=== PATIENT | male | born 1955 | race Caucasian/White ===

== ENCOUNTER 2019-04-05 11:49 | Outpatient (CLI) | payer OTHER, SELFPAY ==
--- NOTE | ~2019-04-05 | XR_ITS ---
EXAMINATION: XR chest 2V 04/05/2019 12:17 INDICATION: Cough. PROCEDURE: 2 view chest COMPARISON: 01/20/2019 FINDINGS: The lungs are clear. The cardiomediastinal silhouette is within normal limits. There are no pleural effusions. There is no pneumothorax suspected. IMPRESSION: 1: NO ACUTE CARDIOPULMONARY DISEASE. Reviewed, dictated and finalized at location A. RATING STATION MECHANIC
== END 2019-04-05 11:50 | disposition home or self-care (01) ==
PROVIDERS: PCP Internal Medicine; Visit Provider Internal Medicine
DX: R05 Cough (principal)
CPT/HCPCS: 71046

== ENCOUNTER 2020-03-05 08:58 | Outpatient (CLI) | payer MEDICARE, SELFPAY ==
--- NOTE | 2020-03-05 11:45 | NEURO_ITS ---
Impression: # Complains of inability to use left hand. # Slower distal nerve conduction velocities with subtle evolving Carpal Tunnel Syndrome on right side. # Asymmetrical median F-wave prolongation. # Needle/EMG exam revealed no Fibs or denervation potentials. # Throughout the exam patient left arm kept turning in with no myotonia on needle/ EMG exam. # Clinical correlation recommended; question of dystonia. Nerve Conduction Studies Anti Sensory Summary Table Stim Site NR Peak (ms) P-T Amp (?V) Site1 Site2 Delta-P (ms) Dist (cm) Bharat (m/s) Left Median Anti Sensory (2-3nd Digit) Wrist 3.4 39.8 Wrist 2-3nd Digit 3.4 14.0 41 Wrist 3.7 41.2 Wrist 2-3nd Digit 3.4 14.0 41 Right Median Anti Sensory (2-3nd Digit) Wrist 3.3 30.9 Wrist 2-3nd Digit 3.3 14.0 42 Wrist 3.3 23.8 Wrist 2-3nd Digit 3.3 14.0 42 Left Radial Anti Sensory (Base 1st Digit) Wrist 2.6 7.2 Wrist Base 1st Digit 2.6 0.0 Right Radial Anti Sensory (Base 1st Digit) Wrist 2.8 13.7 Wrist Base 1st Digit 2.8 0.0 Left Ulnar Anti Sensory (5th Digit) Wrist 3.0 34.6 Wrist 5th Digit 3.0 14.0 47 Right Ulnar Anti Sensory (5th Digit) Wrist 3.2 55.0 Wrist 5th Digit 3.2 14.0 44 Motor Summary Table Stim Site NR Onset (ms) O-P Amp (mV) Site1 Site2 Delta-0 (ms) Dist (cm) Bharat (m/s) Left Median Motor (Abd Poll Brev) Wrist 3.8 5.4 Elbow Wrist 5.4 30.0 56 Elbow 9.2 1.7 Right Median Motor (Abd Poll Brev) Wrist 4.1 2.0 Elbow Wrist 5.7 31.0 54 Elbow 9.8 1.8 Left Ulnar Motor (Abd Dig Minimi) Wrist 3.4 2.8 A Elbow Wrist 5.5 30.0 55 A Elbow 8.9 3.7 Right Ulnar Motor (Abd Dig Minimi) Wrist 3.0 4.7 A Elbow Wrist 5.7 31.0 54 A Elbow 8.7 3.7 F Wave Studies NR F-Lat (ms) L-R F-Lat (ms) Left Median (Mrkrs) (Abd Poll Brev) 33.62 3.83 Right Median (Mrkrs) (Abd Poll Brev) 29.79 3.83 Left Ulnar (Mrkrs) (Abd Dig Min) 27.55 1.05 Right Ulnar (Mrkrs) (Abd Dig Min) 26.50 1.05 EMG Side Muscle Nerve Root Ins Act Fibs Amp Dur Recrt Comment Right 1stDorInt Ulnar C8-T1 Nml Nml Nml Nml Nml Right Ext Indicis Radial (Post Int) C7-8 Nml Nml Nml Nml Nml Right Ext Digitorum Radial (Post Int) C7-8 Nml Nml Nml Nml Nml Right BrachioRad Radial C5-6 Nml Nml Nml Nml Nml Right PronatorTeres Median C6-7 Nml Nml Nml Nml Nml Right Abd Poll Brev Median C8-T1 Nml Nml Nml Nml Nml Left 1stDorInt Ulnar C8-T1 Nml Nml Nml Nml Nml Left Ext Indicis Radial (Post Int) C7-8 Nml Nml Nml Nml Nml Left Ext Digitorum Radial (Post Int) C7-8 Nml Nml Nml Nml Nml Left BrachioRad Radial C5-6 Nml Nml Nml Nml Nml Left PronatorTeres Median C6-7 Nml Nml Nml Nml Nml Left Abd Poll Brev Median C8-T1 Nml Nml Nml Nml Nml Right ABD Dig Min Ulnar C8-T1 Nml Nml Nml Nml Nml Right Biceps Musculocut C5-6 Nml Nml Nml Nml Nml Right Triceps Radial C6-7-8 Nml Nml Nml Nml Nml Right Deltoid Axillary C5-6 Nml Nml Nml Nml Nml Left ABD Dig Min Ulnar C8-T1 Nml Nml Nml Nml Nml Left Biceps Musculocut C5-6 Nml Nml Nml Nml Nml Left Triceps Radial C6-7-8 Nml Nml Nml Nml Nml Left Deltoid Axillary C5-6 Nml Nml Nml Nml Nml MTDD
== END 2020-03-05 08:59 | disposition home or self-care (01) ==
PROVIDERS: PCP Internal Medicine; Visit Provider Psychiatry & Neurology Neurology
DX: R20.2 Paresthesia of skin (principal)
CPT/HCPCS: 95886; 95911

== ENCOUNTER 2020-04-18 09:35 | Outpatient (CLI) | payer MEDICARE, SELFPAY ==
--- NOTE | ~2020-04-18 | US_ITS ---
EXAMINATION: US carotid duplex BI DATE: 04/18/2020 10:30 INDICATION: Cerebral infarct in left occipital lobe. TECHNIQUE: Grayscale, color Doppler, and pulsed Doppler images of the cervical carotid arteries were obtained. The degree of vessel stenosis is placed in one of the following categories: normal, <50%, 5 0-69%, >=70% but less than near-occlusion, near-occlusion, or total occlusion. Note that percent sten osis relative to normal distal artery lumen diameter is indirectly measured from velocity measurement s as described by Yon, et al. Radiology 2003; 229:340-346. COMPARISON: None. FINDINGS: RIGHT: The right common carotid artery (CCA) peak systolic velocity (PSV) is 99 cm/s. The right internal car otid artery (ICA) PSV is 57 cm/s. The right ICA end-diastolic velocity (EDV) is 22 cm/s. The right IC A/CCA PSV ratio is 0.6. Grayscale and color Doppler images yield an estimate of <50% diameter reducti on from plaque in the ICA. There is antegrade flow in the right vertebral artery. LEFT: The left CCA PSV is 103 cm/s. The left ICA PSV is 76 cm/s. The left ICA EDV is 30 cm/s. The left ICA/ CCA PSV ratio is 0.7. Grayscale and color Doppler images yield an estimate of <50% diameter reduction from plaque in the ICA. There is antegrade flow in the left vertebral artery. IMPRESSION: 1. <50% stenosis in the right internal carotid artery. 2. <50% stenosis in the left internal carotid artery. Reviewed, dictated and finalized at location A. CTOR SHIP
== END 2020-04-18 09:36 | disposition home or self-care (01) ==
PROVIDERS: PCP Internal Medicine Infectious Disease; Visit Provider Psychiatry & Neurology Neurology
DX: I63.9 Cerebral infarction, unspecified (principal); I65.23 Occlusion and stenosis of bilateral carotid arteries
CPT/HCPCS: 93880

== ENCOUNTER 2020-05-06 09:27 | Outpatient (CLI) | payer MEDICARE, SELFPAY ==
--- NOTE | ~2020-05-06 | XR_ITS ---
XR hand LT min 3V DATE: 05/06/2020 09:53 INDICATION: Weakness of left arm. Lack of control of left hand. TECHNIQUE: 3 views of left hand COMPARISON: None FINDINGS: No fracture, dislocation, periosteal reaction or bone destruction is detected. No erosive c hange or chondrocalcinosis. IMPRESSION: No significant abnormality Reviewed, dictated and finalized at location A. DROGENATION SUPERVISOR IMPRESSION: No significant abnormality
== END 2020-05-06 09:28 | disposition home or self-care (01) ==
PROVIDERS: PCP Internal Medicine Infectious Disease; Visit Provider Internal Medicine Cardiovascular Disease
DX: R53.1 Weakness (principal)
CPT/HCPCS: 73130

== ENCOUNTER 2021-05-28 00:15 | Day surgery (SDC) | payer MEDICARE, SELFPAY ==
[2021-04-27 12:02] VITALS: BMI 26.1
--- NOTE | 2021-05-14 14:21 | PC.NURSE ---
Spoke with , Zeynep. States that no changes have been made to medication or medical history since last PAT phone call on 04/27/21. Rescheduled times and prep instructions reviewed with patient's since he has a history of memory loss.
--- NOTE | 2021-05-27 18:51 | PM.HPGS ---
History of Present Illness History of Present Illness Consent: Risks, benefits, and alternatives have been discussed and questions answered. Patient agrees to proceed with procedure. Chief complaint: hx of colon polyps, dysphagia Narrative: Soy Wiley is a 65 year old male with dysphagia and history of polyps. he states that he has had difficulty swallowing since he had spinal cord surgery on his cervical spine. Was an anterior approach to his neck. Food and pills seem to get caught in his throat. A little over 5 years ago he had 8 or 9 polyps removed, many which were adenomatous. Review of Systems Review of Systems: All systems reviewed & are unremarkable except as noted in HPI and below PMFSH Past Medical History Medical History CVA (cerebral vascular accident) Hyperlipidemia Memory impairment Surgical History Surgical History History of eye surgery Social History Social History Smoking packs per day: 1 Smoking cigarettes per day: 20.0 Years smoked: 45 Smoking pack-years: 45.00 Smoking status: Current every day smoker Tobacco type: cigarettes Alcohol intake: never Substance use: never Substance use type: does not use Living arrangements: with family Spiritual care concerns: No Meds Home Medications and Allergies Home Medications Medication Instructions Recorded Confirmed Type hydrocodone 10 mg-acetaminophen 1 tablet PO Q8H PRN #70 tablet 02/19/21 04/27/21 Rx 325 mg tablet aspirin 81 mg PO DAILY 04/27/21 04/27/21 History atorvastatin 40 mg PO DAILY 04/27/21 04/27/21 History levetiracetam 500 mg PO BID 04/27/21 04/27/21 History Allergies Allergy/AdvReac Type Severity Reaction Status Date / Time menthol [From Icy Hot] Allergy Mild Rash Verified 05/28/21 09:27 methyl salicylate Allergy Mild Rash Verified 05/28/21 09:27 [From All Web Leads Hot] Exam Const: General: alert Orientation/consciousness: patient oriented x3 Resp: Auscultation: clear to auscultation bilaterally Cardio: Rhythm: regular rhythm GI: GI Palp: Yes Soft to palpation and No Tenderness to palpation present (GI) Neuro: General: patient oriented x3 Assessment and Plan Assessment and plan (1) Dysphagia: Code(s): R13.10 - Dysphagia, unspecified Status: Acute Assessment and Plan: EGD with possible biopsy or dilatation or cautery. (2) Colon cancer screening: Code(s): Z12.11 - Encounter for screening for malignant neoplasm of colon Status: Acute Assessment and Plan: Colonoscopy with possible biopsy or polypectomy or cautery or injection of substances.
[2021-05-28 09:28] VITALS: BP 137/92; PULSE 114; RESP 19; TEMP 36.8; O2SAT 96
--- NOTE | 2021-05-28 09:42 | WPDANESEPPF ---
Anes - Initial Pre Proc Eval Procedure: Operation Date: 05/28/21 10:45 Proposed Procedures p Esophagogastroduodenoscopy & Screening Colonoscopy - Toby Bean MD Date/Time: 05/28/21 09:42 Surgeon: Toby Bean MD Pre Op Diagnosis: hx of colon polyps, dysphagia Patient Data Age: 65 Gender: M Height: 1.85 m Weight: 89.4 kg Last Vital Signs Temp 36.8 C 05/28/21 09:28 Pulse 114 H 05/28/21 09:28 Resp 19 05/28/21 09:28 BP 137/92 H 05/28/21 09:28 Pulse Ox 96 05/28/21 09:28 Allergies Allergy/AdvReac Type Severity Reaction Status Date / Time menthol [From MyColorScreen] Allergy Mild Rash Verified 05/28/21 09:27 methyl salicylate Allergy Mild Rash Verified 05/28/21 09:27 [From MyColorScreen] Home Medications Medication Instructions Recorded Confirmed Type hydrocodone 10 mg-acetaminophen 1 tablet PO Q8H PRN #70 tablet 02/19/21 04/27/21 Rx 325 mg tablet aspirin 81 mg PO DAILY 04/27/21 04/27/21 History atorvastatin 40 mg PO DAILY 04/27/21 04/27/21 History levetiracetam 500 mg PO BID 04/27/21 04/27/21 History Patient hx anesthesia problems: none Family hx anesthesia problems: none Results Review: All pre-operative results and documents have been reviewed as part of the pre-operative evaluation. [facility] Past Medical History Medical History CVA (cerebral vascular accident) Hyperlipidemia Memory impairment Surgical History Surgical History History of eye surgery Social History Social History Smoking packs per day: 1 Smoking cigarettes per day: 20.0 Years smoked: 45 Smoking pack-years: 45.00 Smoking status: Current every day smoker Tobacco type: cigarettes Alcohol intake: never Substance use: never Substance use type: does not use Living arrangements: with family Spiritual care concerns: No Anes - Eval Final PreProcedure Day of Procedure 05/28/21 09:42 Patient weight: overweight Heart: regular rate and rhythm Lungs: decreased breath sounds Airway: Mallampati scale class II Neurological: other (alert) Last oral intake: >/= 8 hours ASA classification: IV Emergent: no Anesthetic plan: proceed Anesthesia type and monitoring: general GIVS and standard monitoring Results Review: All pre-operative results and documents have been reviewed as part of the pre-operative evaluation. Informed Consent: The patient's anesthetic plan and its attendant risks and benefits were discussed with the patient/family/POA. Questions were solicited and answers provided to the satisfaction of the patient/family/POA.
[2021-05-28] MEDS: LACTATED RINGERS 1,000 ML 150 ML IV CONT (09:43)
[2021-05-28] MEDS: BENZOCAINE (*SP) 60 ML SPRAY CAN (HURRICAINE) 1 SPRAY MUCOUS MEM (10:46)
[2021-05-28] MEDS: SIMETHICONE ORAL SUSPENSION 20 MG/0.3 ML 30 ML BOTTLE 0.6 ML IRRIGATION (11:04)
[2021-05-28 11:17] VITALS: BP 114/77; PULSE 81; RESP 16; O2SAT 100
[2021-05-28 11:27] VITALS: BP 131/87; PULSE 79; RESP 19; O2SAT 100
[2021-05-28 11:37] VITALS: BP 133/85; PULSE 78; RESP 15; O2SAT 100
--- NOTE | 2021-05-28 13:35 | SUR.OPER ---
EGD START: 1052; END: 1055. COLONOSCOPY START: 1101; END: 1114.
== END 2021-05-28 11:50 | disposition home or self-care (01) ==
PROVIDERS: PCP Internal Medicine Infectious Disease; Visit Provider Internal Medicine Gastroenterology
PROC: 0DJ08ZZ Inspection of Upper Intestinal Tract, Via Natural or Artificial Opening Endoscopic (ICD-10-PCS; CPT 43235; principal; 2021-05-28 10:45)
DX: Z12.11 Encounter for screening for malignant neoplasm of colon (principal); K63.5 Polyp of colon; D12.4 Benign neoplasm of descending colon; K25.3 Acute gastric ulcer without hemorrhage or perforation; E78.5 Hyperlipidemia, unspecified; F17.210 Nicotine dependence, cigarettes, uncomplicated; Z86.73 Personal history of transient ischemic attack (TIA), and cerebral infarction without residual deficits; Z79.82 Long term (current) use of aspirin
CPT/HCPCS: 45385; 45380; 43239; 88305; J2704; J7120

== ENCOUNTER 2023-07-09 19:39 | Emergency (ER) | payer MEDICARE, SELFPAY ==
[2023-07-09] VITALS (13 sets, daily range): BP systolic 115–152; BP diastolic 67–87; PULSE 74–96; RESP 15–22; TEMP 36.4–36.7; O2SAT 96–100
--- NOTE | ~2023-07-09 | XR_ITS ---
EXAMINATION: XR chest 2V Exam Date/Time: 07/09/2023 20:37 CDT HISTORY: weakness Comparison: 04/05/2020, report only. RESULT: Lines, tubes, and devices: None. Lungs and pleura: Patchy peripheral and bibasilar groundglass opacities. Mild diffuse reticular opac ities. Cardiomediastinal silhouette: Stable. Other: No acute osseous or upper abdominal finding. IMPRESSION: Pulmonary opacities may represent edema or infection. Reviewed, dictated and finalized at location K.
--- NOTE | 2023-07-09 19:59 | ECG_ITS ---
Measurements Intervals [place] Rate: 76 P: 21 RI: 241 QRS: -26 QRSD: 166 T: 117 QT: 458 Avg RR: 785 QTc: 488 QTcB: 516 QTcF: 496 Interpretive Statements SINUS RHYTHM POSSIBLE LEFT ATRIAL ENLARGEMENT [-0.1mV P WAVE IN V1/V2] OLD INFERIOR INFARCT BASELINE ARTIFACT WHICH LIMITS INTERPRETATION SEE SCANNED COPY FOR SIGNATURE MTDD
[2023-07-09 20:12] LABS: Basophils Percent Auto 0.6 % (0.2-1.2); Eosinophils Absolute Auto 0.3 K/mm3 (0-0.3); Eosinophils Percent Auto 4.9 % (0-4.4); Hematocrit 38.2 % (42.0-52.0); Hemoglobin 11.8 g/dL (14.0-18.0); Immature Granulocyte Absolute 0.02 K/mm3 (0.00-0.031); Immature Granulocyte Percent A 0.3 % (0-0.5); Immature Platelet Fraction Pct 5.1 % (0.9-11.2); Lymphocytes Absolute Auto 2.14 K/mm3 (0.9-3.2); Lymphocytes Percent Auto 30.8 % (18.3-44.2); Mean Corpuscular HGB Conc 30.9 g/dl (32-36); Mean Corpuscular Hemoglobin 23.4 pg (26-34); Mean Corpuscular Volume 75.6 fl (80-100); Mean Platelet Volume 11.3 fl (7.4-10.4); Monocytes Absolute Auto 0.6 K/mm3 (0.1-0.6); Monocytes Percent Auto 8.9 % (2.6-8.5); Neutrophils Absolute Auto 3.8 K/mm3 (1.3-6.7); Neutrophils Percent Auto 54.5 % (45.5-73.1); Platelet Count Result 90 k/mm3 (150-375); Red Blood Count 5.05 M/mm3 (4.6-6.20); Red Cell Distribution Width 14.1 % (11.5-14.5)
[2023-07-09 20:18] LABS: Alanine Aminotransferase 15 U/L (6-50); Albumin Level 4.4 g/dL (3.5-5.1); Alkaline Phosphatase 52 U/L (38-126); Anion Gap 8 mmol/L (4-12); Aspartate Amino Transferase 26 U/L (17-59); Bilirubin,Total 0.4 mg/dL (0.2-1.3); Blood Urea Nitrogen 34 mg/dL (9-20); Calcium 9.2 mg/dL (8.4-10.2); Carbon Dioxide 27 mmol/L (22-30); Chloride 106 mmol/L (98-107); Estimated CRCL calculation 51 ml/min; Estimated Glomerular Filt Rate 50; Glucose 89 mg/dL (65-110); Potassium 4.5 mmol/L (3.4-5.0); Sodium 141 mmol/L (137-145)
--- NOTE | 2023-07-09 20:24 | ED.GENADULT ---
HPI - General Adult General Chief complaint: Weakness Stated complaint: confusion, weakness Time Seen by Provider: 07/09/23 20:00 History of Present Illness HPI narrative: The patient is a 68-year-old male who presents ER with reports of weakness. Patient has history of dementia diagnosed for your neuro. He apparently has had increased difficulty with memory over the last week. No fevers chills or sweats. No vomiting. No known sick contacts. Patient reports she has been with more fatigued but cannot elaborate. has difficulty giving any additional information other than that he had been calling his son on the phone and hanging up acting more confused than typical. Related Data Home Medications Medication Instructions Recorded Confirmed aspirin 81 mg capsule 81 mg PO DAILY 04/27/21 04/27/21 atorvastatin 40 mg tablet 40 mg PO DAILY 04/27/21 04/27/21 levetiracetam 500 mg tablet 500 mg PO BID 04/27/21 04/27/21 baclofen 10 mg tablet mg 07/09/23 calcitriol 0.25 mcg capsule mcg 07/09/23 ergocalciferol (vitamin D2) 1,250 07/09/23 mcg (50,000 unit) capsule losartan 50 mg tablet mg 07/09/23 mirtazapine 15 mg tablet mg 07/09/23 Allergies Allergy/AdvReac Type Severity Reaction Status Date / Time menthol [From Icy Hot] Allergy Mild Rash Verified 07/09/23 20:04 methyl salicylate Allergy Mild Rash Verified 07/09/23 20:04 [From 23press] Review of Systems Review of Systems: ROS unobtainable: Yes unobtainable due to medical condition [facility] Past Medical History Medical History CVA (cerebral vascular accident) Hyperlipidemia Memory impairment Surgical History Surgical History History of eye surgery Social History Social History Smoking packs per day: 1 Smoking cigarettes per day: 20.0 Years smoked: 45 Smoking pack-years: 45.00 Smoking status: Current every day smoker Tobacco type: cigarettes Alcohol intake: never Substance use: never Substance use type: does not use Living arrangements: with family Spiritual care concerns: No Exam Narrative: GENERAL: Well-appearing, well-nourished, and in no acute distress. HEAD: Normocephalic, atraumatic. ENT: Mucous membranes moist. NECK: Supple. CHEST: Clear to auscultation. No respiratory distress. HEART: Regular rate and rhythm. Normal peripheral pulses. ABDOMEN: Soft, nontender, nondistended. EXTREMITIES: Normal range of motion. No edema. SKIN: Warm, dry, no rash. NEURO: Alert and oriented x3. PSYCH: Normal mood and affect. Course Course Emergency Course: X-ray concerning for developing pneumonia. Will start on azithromycin. Vital Signs Vital signs: Vital Signs Temperature 97.6 F 07/09/23 19:43 Pulse Rate 96 07/09/23 19:43 Respiratory Rate 16 07/09/23 19:43 Blood Pressure 148/84 H 07/09/23 19:43 Pulse Oximetry 97 07/09/23 19:43 Oxygen Delivery Room Air 07/09/23 19:43 Temperature 98.1 F 07/09/23 20:04 Pulse Rate 77 07/09/23 20:31 Respiratory Rate 18 07/09/23 20:31 Blood Pressure 115/68 07/09/23 20:31 Pulse Oximetry 96 07/09/23 20:31 Oxygen Delivery Room Air 07/09/23 20:00 Medical Decision Making Vital Signs Vital Signs: Vital Signs Temperature 97.6 F 07/09/23 19:43 Pulse Rate 96 07/09/23 19:43 Respiratory Rate 16 07/09/23 19:43 Blood Pressure 148/84 H 07/09/23 19:43 Pulse Oximetry 97 07/09/23 19:43 Oxygen Delivery Room Air 07/09/23 19:43 Temperature 98.1 F 07/09/23 20:04 Pulse Rate 77 07/09/23 20:31 Respiratory Rate 18 07/09/23 20:31 Blood Pressure 115/68 07/09/23 20:31 Pulse Oximetry 96 07/09/23 20:31 Oxygen Delivery Room Air 07/09/23 20:00 Lab Data 07/09/23 20:04 07/09/23 20:04 Labs: Lab Results 07/09/23
[2023-07-09 20:55] LABS: Influenza A QL RT-PCR Negative (Negative); Influenza B QL RT-PCR Negative (Negative); RSV RNA, RT-PCR Negative (Negative); SARS-CoV-2 RNA PCR Negative (Negative)
[2023-07-09 22:26] LABS: Appearance Urine Clear (Clear); Bacteria Urine None Seen /hpf; Bilirubin Urine Negative (Negative); Blood Urine Negative (Negative); Color Urine Yellow (Yellow); Glucose Urine UA Negative (Negative); Ketones Urine Negative (Negative); Leukocyte Esterase Ur Negative LEU/UL (Negative); Nitrate Urine Negative (Negative); Non Pathogenic Casts 0-2; Protein Urine 2+ mg/dL (Negative); RBC Urine 0-2 /hpf (0-2); Specific Grav Ur 1.024 (1.001-1.035); Squamous Epithelial Cell Urine None Seen /hpf (Few); WBC Urine 0-5 /hpf (0-3); pH Urine 6.5 (5.0-9.0)
[2023-07-09 22:34] LABS: Add Urine Microscopic? YES
== END 2023-07-09 23:00 | disposition home or self-care (01) ==
PROVIDERS: Emergency Medicine; Emergency Provider Emergency Medicine; PCP Internal Medicine Infectious Disease
DX: J18.9 Pneumonia, unspecified organism (principal); Z20.822 Contact with and (suspected) exposure to COVID-19; F03.90 Unspecified dementia, unspecified severity, without behavioral disturbance, psychotic disturbance, mood disturbance, and anxiety; E78.5 Hyperlipidemia, unspecified; F17.210 Nicotine dependence, cigarettes, uncomplicated; Z86.73 Personal history of transient ischemic attack (TIA), and cerebral infarction without residual deficits; Z79.82 Long term (current) use of aspirin; R94.31 Abnormal electrocardiogram [ECG] [EKG]
CPT/HCPCS: 36415; 71046; 80053; 81001; 85025; 85055; 87637; 93005; 99284

== ENCOUNTER 2023-08-02 11:21 | Outpatient (CLI) | payer MEDICARE, SELFPAY ==
--- NOTE | ~2023-08-02 | XR_ITS ---
EXAM: XR lumbar spine min 4V DATE: 08/02/2023 11:45 HISTORY: Facet arthritis of lumbar region . COMPARISON: None available. FINDINGS: 5 nonrib-bearing lumbar-type vertebral bodies. Pedicles intact. Severe scoliosis. Partiall y visualized right hip arthroplasty hardware. Atherosclerotic aortic calcification without evident an eurysm. Exaggerated lumbar lordosis. Severe degenerative disc disease at all lumbar levels. Severe fa cet arthropathy in the mid and lower lumbar spine. Limited range of motion in flexion without obvious listhesis. No range of motion in extension which limits evaluation. IMPRESSION: Severe lumbar scoliosis, degenerative disc disease at all lumbar levels, and mid and lower lumbar fac et arthropathy. Limited range of motion limits evaluation for dynamic listhesis in this examination. Reviewed, dictated and finalized at location K. IMPRESSION: Severe lumbar scoliosis, degenerative disc disease at all lumbar levels, and mi d and lower lumbar facet arthropathy. Limited range of motion limits evaluation for dynamic listhesis in this examina tion.
== END 2023-08-02 11:22 ==
PROVIDERS: PCP Nurse Practitioner Family; Visit Provider Nurse Practitioner Family
DX: M47.816 Spondylosis without myelopathy or radiculopathy, lumbar region (principal)
CPT/HCPCS: 72110

== ENCOUNTER 2023-10-05 10:04 | Outpatient (CLI) | payer MEDICARE, SELFPAY ==
--- NOTE | ~2023-10-05 | MR_ITS ---
MRI of the lumbar spine Clinical History: Radiculopathy Technique: Axial T2-weighted images, and sagittal T1-weighted, T2-weighted, and STIR images were acqu ired. Findings: There is reversal of normal lumbar lordosis. No acute fracture or subluxation evident. Ther e are type I Modic changes about the L5-S1 disc space in particular. No suspicious bone marrow signal abnormality seen. At L1-L2, there is severe degenerative disc narrowing. There is minimal disc bulge with mild to moder ate facet arthropathy. No central canal stenosis. There is moderate left neural foraminal narrowing. Right neural foramen preserved. At L2-L3, there is severe degenerative disc narrowing. There is minimal disc bulge with moderate to a dvanced facet arthropathy. No central canal stenosis. There is moderate to severe left neural foramin al narrowing, and mild to moderate right neural foraminal narrowing. At L3-L4, there is severe degenerative disc narrowing. There is mild disc bulge with advanced facet a rthropathy. No central canal stenosis. There is severe bilateral neural foraminal contrast. At L4-L5, there is moderate to advanced degenerative disc narrowing. There is mild disc bulge with mo derate to advanced facet arthropathy. There is right lateral recess stenosis. No alin central canal stenosis. There is severe right neural foraminal compromise, and moderate to advanced left neural for aminal compromise. At L5-S1, there is disc bulge and moderate facet arthropathy. No central canal stenosis. There is sev ere bilateral neural foraminal, otherwise. Paravertebral soft tissues are unremarkable. Impression: Severe degenerative spondylosis, as detailed above, with multilevel significant neural foraminal narr owing. Reviewed, dictated and finalized at location M. Impression: Severe degenerative spondylosis, as detailed above, with multilevel significant neural foraminal narrowing.
== END 2023-10-05 10:05 ==
LOC: MICIMG 10:05
PROVIDERS: PCP Nurse Practitioner Family; Visit Provider Nurse Practitioner Family
DX: M47.26 Other spondylosis with radiculopathy, lumbar region (principal)
CPT/HCPCS: 72148

== ENCOUNTER 2024-07-04 15:18 | Emergency (ER) | payer MEDICARE, SELFPAY ==
[2024-07-04 15:20] VITALS: BP 149/96; PULSE 86; RESP 20; TEMP 36.7; O2SAT 98
--- OUTSIDE RECORDS SUMMARY | 2024-07-04 16:30 | XMS_ITS | Encounter Summary ---
Author Organization [facility] Address [address] [place] [address] Phone Care Team Providers Care Nut Packer Name Role Phone Mina House MD Primary Care Provider [phone] Gianluca Zavala MD Primary Care Provider Nico Garcia MD PhD Unavailable Subha Echavarria MANAGER RECOVERY Unavailable [phone] Encounter Details Date Type Department Care Team (Late st Contact Info) Description 09/28/2017 Telephone [facility] Neurosurgery [address] 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 Gender Identity Not on file Sexual Orientation Not on file documented as of this encounter Plan of Treatment Not on file documented as of this encounter Visit Diagnoses Not on filedocumented in this encounter Care Teams Nut Packer Relationship Specialty Start Date End Date Mina House MD PCP - General 07/19/17 03/29/21 Gianluca Zavala MD [address] [facility] [address] [place] [address] PCP - General Internal Medicine 03/30/21 Nico Garcia MD PhD [address] [facility] [place] [address] Referring Physician Neurology 05/06/22 Subha Echavarria NP [address] [place] [address] Nurse Practitioner Family Medicine 09/01/23 documented as of this encounter
--- OUTSIDE RECORDS SUMMARY | 2024-07-04 16:30 | XMS_ITS | Encounter Summary ---
Author Organization [facility] Address [address] [place] [address] Phone Care Team Providers Care Center Machine Set Up Operator Name Role Phone Mina House MD Primary Care Provider [phone] Gianluca Zavala MD Primary Care Provider Nico Garcia MD PhD Unavailable Subha Echavarria SHIPPING HAND Unavailable [phone] Encounter Details Date Type Department Care Team (Late st Contact Info) Description 09/29/2017 Telephone [facility] Neurosurgery [address] [facility] Advanced Medicine 6th [place] [address] [place] [address] Jose Villagomez MD [address] [address] Social History Tobacco Use Types Packs/Day Years Used Date Smoking Tobacco: Every Day Alcohol Use Standard Drinks/Week Comments No 0 (1 standard drink = 0.6 oz pur e alcohol) Sex and Gender Information Value Date Recorded Sex Assigned at Not on file 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 Gender Identity Not on file Sexual Orientation Not on file documented as of this encounter Plan of Treatment Not on file documented as of this encounter Visit Diagnoses Not on filedocumented in this encounter Care Teams Center Machine Set Up Operator Relationship Specialty Start Date End Date Mina House MD PCP - General 07/19/17 03/29/21 Gianluca Zavala MD [address] [facility] [address] [place] [address] PCP - General Internal Medicine 03/30/21 Nico Garcia MD PhD [address] [facility] [address] [place] [address] Referring Physician Neurology 05/06/22 Subha Echavarria NP [address] [place] [address] Nurse Practitioner Family Medicine 09/01/23 documented as of this encounter
--- OUTSIDE RECORDS SUMMARY | 2024-07-04 16:30 | XMS_ITS | Patient Health Record ---
Author Organization [facility] Office Address [address] [place] [address] Care Team Providers Care Hand Assembler For Puller Over Name Role Phone Oren Garza Unavailable [phone] REASON FOR REFERRAL No Information MEDICATIONS Medication SIG (Take, Route, Frequency, Duration) Notes Start Date End Date Status Losartan Potassium 50 MG TAKE 1 TABLET B Y MOUTH ONCE DAILY FOR BLOOD PRESSURE for 124 Active Calcitriol 0.25 MCG TAKE 1 CAPSULE BY [facility] EVERY DAY for 124 Active PROBLEMS Problem Type ICD Code Onset Dates Problem Status W/U Status Risk SNOMED Code Notes Problem Hyperlipidemia, unspecified (E78.5) Active confirmed Hyperlipidemia (17257297) Problem Major depressive disorder, single episode, unspecified (F32.9) Active confirmed Major depressio n, single episode (16423530) Problem Anxiety disorder, unspecified (F41.9) Active confirmed Anxiety disorde r (254561174) Problem Essential (primary) hypertension (I10) Active confirmed Essential hypertension (95750493) Problem Essential (primary) hypertension (I10) Active confirmed Essential hypertension (84451173) Problem Heart failure, unspecified (I50.9) Active confirmed Heart failure (18415670) Problem Heart failure, unspecified (I50.9) Active confirmed Heart failure (32719025) Problem Renal osteodystrophy (N25.0) Active confirmed Renal osteodystrophy (04315003) Problem Chronic fatigue, unspecified (R53.82) Active confirmed Chronic fatigue syndrome (disorder) (71410883) Problem Edema, unspecified (R60.9) Active confirmed Edema (11443381) Problem Proteinuria, unspecified (R80.9) Active confirmed Proteinuria (14662769) Problem Chronic kidney disease, stage 3 unspecified (N18.30) Active confirmed Chronic kidney disease stage 3 (disorder) (886591617) Problem Chronic kidney disease, stage 3 unspecified (N18.30) Active confirmed Chronic kidney disease stage 3 (disorder) (933225748) Encounters Encounter Location Date Provider Diagnosis [facility] [address] [address] 09/30/2023 Oren Garza Chronic kidney disea se, stage 3 unspecified N18.30 ; Edema, unspecified R60.9 ; Essential (primary) hypertension I10 ; Heart failure, unspecified I50.9 ; Hyperlipidemia, unspecified E78.5 ; Proteinuria, unspecified R80.9 and Renal osteodystrophy N25.0 [facility] [address] [address] 12/02/2023 Oren Garza ASSESSMENTS Encounter Date Diagnosis Assessment Notes Treatment Notes Treatment Clinical Notes Section Notes 09/30/2023 Chronic kidney disease, stage 3 unspecified (ICD-10 - N18.30) 09/30/2023 Edema, unspecified (ICD-10 - R60.9) 09/30/2023 Essential (primary) hypertension (ICD-10 - I10) 09/30/2023 Heart failure, unspecified (ICD-10 - I50.9) 09/30/2023 Hyperlipidemia, unspecified (ICD-10 - E78.5) 09/30/2023 Proteinuria, unspecified (ICD-10 - R80.9) 09/30/2023 Renal osteodystrophy (ICD-10 - N25.0) PLAN OF TREATMENT No Information
--- OUTSIDE RECORDS SUMMARY | 2024-07-04 16:31 | XMS_ITS ---
Author Organization [facility] Address [address] [address] [place] [address] Care Team Providers Care Retail Product Advisor Name Role Phone Greg Oren Unavailable [phone] MEDICATIONS Medication SIG (Take, Route, Frequency, Duration) Notes Start Date End Date Status Calcitriol 0.25 MCG 1 capsule Orally Onc e a day for 90 day(s) 07/01/2023 03/26/2024 Active Losartan Potassium 50 MG 1 tablet Orally Once a day for 90 07/01/2023 Active Ergocalciferol 1.25 MG (33536 UT) 1 capsule Orally Once a week for 90 day(s) 07/01/2023 03/26/2024 Active Encounters Encounter Location Date Provider Diagnosis [place] [facility] [address] [facility] [address] [place] [address] 07/01/2023 rOen Garza PLAN OF TREATMENT Medication Medication Name Sig Start Date Stop Date Notes Calcitriol 0.25 MCG 1 capsule Orally Onc e a day for 90 day(s) 07/01/2023 03/26/2024 Losartan Potassium 50 MG 1 tablet Orally Once a day for 90 07/01/2023 Ergocalciferol 1.25 MG (5000 0 UT) 1 capsule Orally Once a week for 90 day(s) 07/01/2023 03/26/2024 Progress Notes * Soy WILEYDOB: [birth year] (67 yo M)Acc No.[id number]:07/01/2023 Patient: Soy WILEY :1955 Age:67 Y Sex:Male Address:[address] [place] [address] * Refills Start Losartan Potassium Tablet, 50 MG, Orally, 90 Tablet, 1 tablet, Once a day, 90, Refills=2 Start Ergocalciferol Capsule, 1.25 MG (88782 UT), Orally, 13, 1 capsule, Once a week, 90 day(s), Refills=2 Start Calcitriol Capsule, 0.25 MCG, Orally, 90 Capsule, 1 capsule, Once a day, 90 day(s), Refills=2 * true * Date:
--- OUTSIDE RECORDS SUMMARY | 2024-07-04 16:31 | XMS_ITS ---
Author Organization [facility] Address [address] [place] [address] Care Team Providers Care Thinner Sprayer Name Role Phone Oren Garza Unavailable [phone] Encounters Encounter Location Date Provider Diagnosis [place] [facility] [address] [facility] [address] [place] [address] 12/02/2023 Oren Garza PLAN OF TREATMENT No Information Progress Notes * Soy WILEYDOB: [birth year] (68 yo M)Acc No.[id number]:12/02/2023 Progress Notes Patient: Soy WILEY Provider: MD MATT, Kely.Alexey.C.P, F.A.S.N. :1955 Age:68 Y Sex:Male Date:12/02/2023 Address:[address] [place] [address] Subjective: * Chief Complaints: * * Medical History: Objective: Assessment: Plan: * Treatment: * Billing Information: * Visit Code: * Procedure Codes: * Sign off status: Pending * Provider: MD MATT, F.Alexey.C.P, F.A.S.N. Date: 12/02/2023
--- OUTSIDE RECORDS SUMMARY | 2024-07-04 16:32 | XMS_ITS | CONTINUITY OF CARE DOCUMENT ---
Author Name chase stone Address Unknown Organization [facility] Address [address] [address] [facility] [address] [place] [address] Phone [phone] Care Team Providers Care Contact Lens Assistant Name Role Phone Greg ANN, Yvette Unavailable [phone] NANCI BROOKE MD Unavailable NANCI BROOKE MD Unavailable [phone] PROBLEMS Condition Status Date Provider Notes TOBACCO ABUSE active Yvette Garza MD Hypercholesterolemia, mixed active Kenneid Gr uenenfelder HTN SYSTOLIC active Yvette Garza MD CHEST PAIN NL CATH 12/06. Nor mal echo and stress test 04/2020 active Dionisio Velez Chronic idiopathic thrombocytopenic purpura active Paulo Esteban MD Venous insufficiency, chronic active Paulo Esteban MD Iron deficiency completed - Yvette Garza MD DYSPNEA ON EXERTION- normal PFTs active Yvette Garza MD Weakness of left arm active Dionisio Velez Preoperative cardiovascular examination for cervical spine and hip surgery active Yvette Garza MD AAA completed - Yvette Garza MD Sleep apnea- testing with Dr Sd House last yr, declined treatment. Will f/u with [facility] for treatment. completed - Yvette Garza MD Dementia- early onset active Yvette Eli DIZZINESS AND PALPITATIONS- HOLTER SR HR 60-144 active ? Isidoro Curry RN HTN CONTROLLED-08/15 CAROTID NEG completed - To meghan Garza MD ENCOUNTERS Date Type Provider Location Encounter Diag nosis - In-person encounter Office Visit Yvette Garza MD [facility] CHEST PAIN NL CATH 12/06. Normal echo and stress test 04/2020Weakness of left arm - In-person encounter Office Visit Yvette Garza MD [facility] - In-person encounter Office Visit Yvette Garza MD [facility] [place] [facility] HTN SYSTOLICHTN CONTROLLED-08/15 CAROTID NEGSleep apnea- testing with Dr. House last yr, declined treatment. Will f/u with Harsh for treatment.AAAPreoperativ e cardiovascular examination for cervical spine and hip surgery - In-person encounter Office Visit Yvette Garza MD [facility] CHEST PAIN NL CATH 12/06. Normal echo and stress test 04/2020Iron deficiencyDYSPNEA ON EXERTION- normal PFTsDementia- early onset - In-person encounter Office Visit Yvette Garza MD [facility] DYSPNEA ON EXERTION- normal PFTs - In-person encounter Office Visit Paulo Esteban MD [facility] Chronic idiopathic thrombocytopenic purpuraVenous insufficiency, chronic - In-person encounter Office Visit Paulo Esteban MD [facility] - In-person encounter Office Visit Paulo Esteban MD [facility] Chronic idiopathic thrombocytopenic purpura - In-person encounter Office Visit Yvette Garza MD [facility] - In-person encounter Office Visit Yvette Garza MD [facility] - In-person encounter Office Visit Yvette Garza MD [facility] [place] [facility] DIZZINESS AND PALPITATIONS-08/15 HOLTER SR HR 60-144 VITAL SIGNS Date Observation Value Provider Body Mass Index (Ratio) 27.57 kg/m2 Keith Garza MD blood pressure, cuff size large Ke rri Rivasrolandoraulrussellsouthwestern vermont medical centermagalys blood pressure, diastolic 70 mm[Hg] Ke rri Michelle blood pressure, systolic 130 mm[Hg] Sarah ashley Rivasjosselyntung oxygen saturation, oximetry 96 % Kennedi Fortuneraulrusselltung respiratory rate E&M 16 /min Kennedi Cuadra kevinenerussellsouthwestern vermont medical centermagalys pulse rate 91 /min Kennedi Grullon [facility] weight E&M 209 [lb_av] Kennedi Joee [facility] height E&M 73 [in_i] Kennedi Rivasjosselynchamp [facility] Body Mass Index (Ratio) 27.31 kg/m2 Keith Garza MD oxygen saturation, oximetry 96 % Gina Gomez respiratory rate E&M 18 /min Gina Gomez pulse rate 97 /min Gina Gomez blood pressure, diastolic 69 mm[Hg] Rh onfredis Gomez blood pressure, systolic 110 mm[Hg] Rho ndmark Gomez weight E&M 207 [lb_av] Gina Gomez blood pressure, resting Yes Rhon fredis Gomez blood pressure, cuff size regular lexie Gomez height E&M 73 [in_i] Gina Gomez Body Mass Index (Ratio) 28.23 kg/m2 Keith Garza MD blood pressure, diastolic 80 mm[Hg] Da luis Hraris blood pressure, systolic 118 mm[Hg] Dac ia Kimberly oxygen saturation, oximetry 98 % Ida Kimberly respiratory rate E&M 16 /min Ida V oss pulse rate 86 /min Ida Kimberly weight E&M 214 [lb_av] Ida Kimberly height E&M 73 [in_i] Ida Kimberly Body Mass Index (Ratio) 28.76 kg/m2 Keith Garza MD blood pressure, cuff size regular Ke rri Tongnekarley blood pressure, diastolic 74 mm[Hg] Ke rri Gruenenfelder blood pressure, systolic 116 mm[Hg] Sarah ri Michelle oxygen saturation, oximetry 98 % Kennedi Gralkaer respiratory rate E&M 18 /min Kennedi G kevinenenfelder pulse rate 94 /min Kennedi Gropal lder weight E&M 218 [lb_av] Kennedi Grjosselyne lder height E&M 73 [in_i] Kennedi Joee lder Body Mass Index (Ratio) 28.47 kg/m2 Keith Garza MD blood pressure, diastolic 85 mm[Hg] Luke Mauriceniki Walters blood pressure, systolic 124 mm[Hg] Lisa Naveen Walters oxygen saturation, oximetry 98 % Ridge Walters respiratory rate E&M 18 /min TariZulma Valadezenson pulse rate 125 /min Ridge Jeff brittanyon weight E&M 215.8 [lb_av] Ridge Rory on height E&M 73 [in_i] Ridge Jeff nson blood pressure, diastolic 88 mm[Hg] Ke rri Rivasuenekarley blood pressure, systolic 142 mm[Hg] Sarah ri Michelle pulse rate 97 /min Kennedi Grjosselyne lder oxygen saturation, oximetry 98 % Kennedi Jimynfjayshreeer respiratory rate E&M 16 /min Kennedi G kevinenenfjayshreeer Body Mass Index (Ratio) 31.00 kg/m2 Hester i Michelle weight E&M 235 [lb_av] Kennedi Diaze lder blood pressure, diastolic 90 mm[Hg] Ke rri Joeelder blood pressure, systolic 138 mm[Hg] Sarah Fortunenerussellelder pulse rate 105 /min Kennedi Diaze lder oxygen saturation, oximetry 98 % Kennedi Diazelder respiratory rate E&M 16 /min Kennedi brownenerussellelder Body Mass Index (Ratio) 31.66 kg/m2 Hester dale Zaidier weight E&M 240 [lb_av] Kennedi Grullon lder blood pressure, diastolic 88 mm[Hg] Ke rri Joeelder blood pressure, systolic 160 mm[Hg] Sarah Zaidier pulse rate 76 /min Kennedi Diaze lder oxygen saturation, oximetry 97 % Kennedi Zaidier respiratory rate E&M 16 /min Kennedi garlandelder Body Mass Index (Ratio) 32.58 kg/m2 Hester dale Zaidier weight E&M 247 [lb_av] Kennedi Grullon lder blood pressure, diastolic 86 mm[Hg] Luke Walters blood pressure, systolic 129 mm[Hg] Lisa Walters pulse rate 102 /min Ridge serrano oxygen saturation, oximetry 96 % Ridge Walters respiratory rate E&M 18 /min Michael Walters weight E&M 229.6 [lb_av] Ridge valdezon blood pressure, diastolic 74 mm[Hg] Liam Curry RN blood pressure, systolic 125 mm[Hg] Isidoro Curry RN pulse rate 98 /min Isidoro Curry RN oxygen saturation, oximetry 98 % Isidoro Baldwins RN respiratory rate E&M 16 /min Isidoro navamaría LOPEZ Body Mass Index (Ratio) 30.45 kg/m2 Isidoro Curry JESSICA weight E&M 230 [lb_av] Isidoro Curry RN Body Mass Index (Ratio) 30.59 kg/m2 Kerline Mendez weight E&M 231 [lb_av] Vanna Mendez height E&M 73 [in_i] Vanna Mendez pulse rate 81 /min Vanna Mendez oxygen saturation, oximetry 94 % Vanna Mendez respiratory rate E&M 17 /min Vanna Mendez blood pressure, diastolic 82 mm[Hg] Junior Mendez blood pressure, systolic 122 mm[Hg] Erick Mendez ALLERGIES No Known Drug Allergies RESULTS Date Observation Value Provider Reference Range Interpretation Location red blood cell distribution width, size density 38.6 fL [facility] immature granulocytes, percentage of total cells, blood 0.5 % [facility] nucleated red blood cells as percent of blood leukocytes 0.0 % [facility] red blood cell (erythrocyte) count, per high power field 0.0 10*3/UL [facility] - eosinophils as percent of blood leukocytes 4.7 % [facility] neutrophils as percent of blood leukocytes 52.4 % [facility] Absolute Neutrophils 3.2 CELLS/UL [facility] 1.5 - 7.8 basophils as percent of blood leukocytes 0.6 % [facility] Absolute Basophils 0.0 CELLS/UL [facility] 0.0 - 0.2 monocytes as percent of blood leukocytes 9.4 % [facility] Absolute Monocytes 0.6 CELLS/UL [facility] 0.2 - 1.0 lymphocytes as percent of blood leukocytes 32.4 % [facility] Lymphocytes 2.0 CELLS/UL [facility] 0.9 - 3.9 mean platelet volume 0.0 (?) [facility] - platelet count 86.0 THOUSAND/U L [facility] 100.0 - 400.0 Low mean corpuscular hemoglobin concentration, RBC 30.7 G/DL [facility] 31.0 - 38.0 Low mean corpuscular hemoglobin, RBC 22.4 pg [facility] 25.0 - 35.0 Low mean corpuscular volume, RBC 72.9 fL [facility] 75.0 - 100.0 Low hematocrit, blood 44.9 % [facility] 35.0 - 55.0 hemoglobin, blood 13.8 g/dL [facility] 11.5 - 16.5 erythrocyte count, whole blood 6.2 MILLION/UL [facility] 3.5 - 5.5 High vitamin b12, serum 409.2 pg/mL [facility] 211.0 - 946.0 thyroid stimulating hormone, serum 0.584 ??IU/ML [facility] 0.270 - 4.200 ferritin, serum 87.7 ng/mL [facility] 30.0 - 400.0 iron binding capacity, total 286.0 (?) [facility] - iron, serum 82.0 ug/dL [facility] 31.0 - 144.0 iron binding capacity, unsaturated 204.0 ??G/DL [facility] 112.0 - 347.0 folate, serum 9.6 NG/MLM [facility] 5.6 - 45.8 platelet count 88.0 THOUSAND/U L [facility] 100.0 - 400.0 Low reticulocyte count, absolute 0.067 10*6 CELLS/UL [facility] - reticulocyte count, blood, uncorrected 1.16 % [facility] 0.50 - 2.00 HISTORY OF MEDICATION USE Medication Status Instructions Dates Provider Indications Com jimenez MELOXICAM 15 MG ORAL TABLET active one tab daily for a month Dionisio Velez LISINOPRIL 10 MG ORAL TABLET active 1 tab daily Gina Gomez GABAPENTIN 100 MG ORAL CAPSULE active 1 cap 2 a day Gina Gomez VITAMIN B12 1000 MCG ORAL TABLET EXTENDED RELEASE completed take one daily - Gina Gomez ASPIR-81 81 MG ORAL TABLET DELAYED RELEASE active take one daily Ida Kimberly KEPPRA TABLET completed take one twice daily - Gina oGmez ZOLOFT 25 MG ORAL TABLET completed take once daily - Gina Gomez ATORVASTATIN CALCIUM 10 MG ORAL TABLET active take once dialy Ida Kimberly FERROUS SULFATE 324 (65 FE) MG ORAL TABLET DELAYED RELEASE completed One tablet, twice daily. - Ida Kimberly FEOSOL 325 (65 FE) MG ORAL TABLET completed TID - Ridge Walters BENADRYL CAPSULE completed take 1 - 2 pills at bedtime - Ridge Walters LISINOPRIL-HYDRO CHLOROTHIAZIDE 10-12.5 MG ORAL TABLET completed take one pill aday - Ida Kimberly OMEPRAZOLE 40 MG ORAL CAPSULE DELAYED RELEASE completed take one pill a day - Kennedi Martinez PERIACTIN 4MG completed take one pill at bedtime - Kennedi Martinez ASPIRIN 325 MG ORAL TABLET completed ONE TAB. DAILY - Kennedi Martinez LEXAPRO 10 MG ORAL TABLET completed one per day - Kennedi Martinez ASPIRIN 81 MG ORAL TABLET completed ONE TAB. DAILY - Ridge Walters LISINOPRIL 5 MG ORAL TABLET completed ONE TAB. DAILY - Yvette CORONADOODONE-ACET AMINOPHEN 10-325 MG ORAL TABLET active 1 tab every8 hours as needed for pain Aneatris Brown ACETAMINOPHEN 500 MG ORAL TABLET completed take prn for pain - Ridge Walters SOCIAL HISTORY Date Observation Value Provider social history E&M Marital Statu s: P gibran currently smokes every day. 1PPD x 30 years A lcohol Use - no D rug Use - no Smoking History: P gibran currently smokes every day. P gibran has been counseled to quit. Dionisio Velez social history reviewed E&M revi ewed - no changes required Dionisio Velez seatbelt usage 100 % Dionisio Velez exercise type physical therapy Dionisio mcdowell physical exercise, f requency, days per week 1 /wk Dionisio Velez caffeine use, averag e drinks per day 2-3 Dionisio Velez passive cigarette sm diana exposure no Dionisio Velez smoking/tobacco cess ation, patient education and counseling yes Dionisio Velez smoking, date started 1973 Dionisio Velez smoking history, tot al pack/year 43 Dionisio Velez smoking history, tot al pack/day 1 Dionisio Velez cigarette use yes Dionisio Velez smoking status Current every day smoker Reji Velez social history E&M Marital Statu s: P gibran currently smokes every day. 1PPD x 30 years A lcohol Use - no D rug Use - no Smoking History: P gibran currently smokes every day. Dionisio Gill social history reviewed E&M revi ewed - no changes required Dionisio Gill smoking status Current every day smoker R oli Gomez social history reviewed E&M revi ewed - no changes required Yvette Garza MD social history E&M Marital Statu s: P gibran currently smokes every day. 1PPD x 30 years A lcohol Use - no D rug Use - no Smoking History: P gibran currently smokes every day. P gibran has been counseled to quit. Yvette Gazra MD seatbelt usage 100 % Ida Harris exercise type physical therapy [facility] physical exercise, f requency, days per week 1 /wk [facility] alcohol use no [facility] caffeine use, averag e drinks per day 2-3 [facility] drug use no [facility] smoking/tobacco cess ation, patient education and counseling yes [facility] passive cigarette sm diana exposure no [facility] smoking, date started 1973 [facility] smoking history, tot al pack/year 43 [facility] smoking history, tot al pack/day 1 [facility] cigarette use yes [facility] smoking status Current every day smoker D [facility] smoking, date started 1973 Dariana Mike smoking history, tot al pack/year 43 Dariana Mike smoking history, tot al pack/day 1 Dariana Mike smoking status Current every day smoker S yariel Mike cigarette use yes Dariana dowell seatbelt usage 100 % Dariana villarreal exercise type physical therapy Dariana barcenas physical exercise, f requency, days per week 1 /wk Dariana Mckeon alcohol use no Dariana garcia caffeine use, averag e drinks per day 2-3 Dariana Mckeon drug use no Dariana garcia passive cigarette sm diana exposure no Dariana Mike smoking history, tot al pack/day 1 Carola Landeros cigarette use yes Carola Landeros smoking status Current every day smoker M madhav Landeros exercise type physical therapy Carola chau physical exercise, f requency, days per week 1 /wk Carola Landeros caffeine use, averag e drinks per day 2-3 Carola Landeros seatbelt usage 100 % Dariana villarreal alcohol use no Dariana Galaviz r caffeine use, averag e drinks per day yes Dariana Mckeon drug use no Dariana Galaviz r smoking/tobacco cess ation, patient education and counseling yes Dariana Mckeon passive cigarette sm diana exposure no Dariana Mckeon smoking, date started 1973 Dariana Mckeon smoking history, tot al pack/year 43 Dariana Mckeon smoking history, tot al pack/day 0.5 Dariana Mckeon smoking status Current every day smoker S yariel Mckeon cigarette use yes Dariana Brito seatbelt usage 100 % Dariana villarreal alcohol use no Dariana garcia caffeine use, averag e drinks per day yes Dariana Mckeon drug use no Dariana Galaviz r smoking/tobacco cess ation, patient education and counseling yes Dariana Mckeon passive cigarette sm diana exposure no Dariana Mckeon smoking, date started 1973 Dariana Mckeon smoking history, tot al pack/year 43 Dariana Mckeon smoking history, tot al pack/day 0.5 Dariana Mckeon smoking status Current every day smoker S yariel Mckeon cigarette use yes Dariana Brito social history E&M Marital Statu s: Enoch leary currently smokes every day. 1PPD x 30 years A lcohol Use - no D rug Use - no Smoking History: Enoch leary currently smokes every day. Enoch leary has been counseled to quit. Yvette Garza MD social history reviewed E&M i zhane - no changes required Yvette Garza MD alcohol use no Kennedi Grullon lder caffeine use, averag e drinks per day yes Kennedi Martinez drug use no Kennedi Grullon lder smoking/tobacco cess ation, patient education and counseling yes Kennedi Michelle passive cigarette sm diana exposure no Kennedi Fortuneraulrusselljayshreemagalys smoking, date started 1973 Kennedi Diazjayshreemagalys smoking history, tot al pack/year 43 Kennedi Hathawaygabinokarley smoking history, tot al pack/day 0.5 Kennedi Fortuneraulrusselljayshreemagalys cigarette use yes Kennedi ruby smoking status Current every day smoker Syl dillard Michelle number of grandchildren Yvette Garza MD T jenny Garza MD alcohol use no Ridge Aguilar brittanyon caffeine use, averag e drinks per day yes Ridge Walters drug use no Ridge Aguilar brittanyon smoking/tobacco cess ation, patient education and counseling yes Ridge Walters passive cigarette sm diana exposure no Ridge Walters smoking, date started 1973 Iza Walters smoking history, tot al pack/year 43 Ridge Walters smoking history, tot al pack/day 0.5 Ridge Walters cigarette use yes Ridge valdezon smoking status Current every day smoker Piotr fryShannonthor Walters smoking history, tot al pack/year 43 Kennedi Michelle social history reviewed E&M revi ewed - no changes required Paulo Esteban MD alcohol use no Kennedi Yadi lomaxer caffeine use, averag e drinks per day yes Kennedi Michelle drug use no Kennedi Hathawayjosselynchamp monieer smoking/tobacco cess ation, patient education and counseling yes Kennedi Michelle passive cigarette sm diana exposure no Kennedi Michelle smoking, date started 1974 Kennedi Michelle smoking history, tot al pack/year 42 Kennedi Diazjayshreemagalys smoking history, tot al pack/day 0.5 Kennedi Diazjayshreemagalys cigarette use yes Kennedi ruby smoking status Current every day smoker Syl Hathawaygabinorusselljayshreemagalys social history reviewed E&M revi ewed - no changes required Paulo Esteban MD smoking/tobacco cess ation, patient education and counseling yes Paulo Esteban MD alcohol use no Kennedi Tongraulrussellchamp edenilson smoking status Current every day smoker K eundale Michelle number of grandchildren Paulo Dodd RN smoking history, tot al pack/year 42 Iesha Dodd RN social history reviewed E&M revi ewed - no changes required Paulo Esteban MD drug use no Paulo Eli alcohol use no Paulo Eli social history E&M Marital Statu s: P gibran currently smokes every day. 1PPD x 30 years A lcohol Use - no D rug Use - no Smoking History: P gibran currently smokes every day. P gibran has been counseled to quit. Paulo Esteban MD smoking/tobacco cess ation, patient education and counseling yes Paulo Esteban MD smoking status Current every day smoker K nishant Michelle social history reviewed E&M revi ewed - no changes required Yvette Garza MD caffeine use, averag e drinks per day yes Ridge Walters drug use no Ridge serrano passive cigarette sm diana exposure no Ridge Walters smoking/tobacco cess ation, patient education and counseling yes Ridge Walters smoking, date started 1974 Iza Walters smoking history, tot al pack/year 40 Ridge Walters smoking history, tot al pack/day 0.5 Ridge Walters cigarette use yes Ridge koehler smoking status current every day smoker M Emery Walters drug use no Isidoro Curry RN passive cigarette sm diana exposure no Isidoro Curry RN social history E&M Marital Status: Marrie d Isidoro Curry RN caffeine use, averag e drinks per day yes Isidoro Curry RN social history reviewed E&M reviewed Isidoro Curry RN smoking history, tot al pack/year 40 Isidoro Curry RN smoking history, tot al pack/year 40 Isidoro Curry RN social history E&M Marital Status: Lisarichamp kiesha Garza MD social history reviewed E&M reviewed Yvette Garza MD smoking/tobacco cess ation, patient education and counseling yes Yvette Garza MD smoking history, tot al pack/day 1 Vanna Mendez smoking history, tot al pack/year 40 Vanna Mendez smoking, date started 1974 Vanna Mendez cigarette use yes Vanna Mendez smoking status current every day smoker Lino benitez Mendez MENTAL STATUS Date Observation Value Provider assessment of judgme nt and insight E&M Alert and oriented to time, place and person. Mood and affect are normal. Isidoro Curry RN assessment of judgme nt and insight E&M Alert and oriented to time, place and person. Mood and affect are normal. Yvette Garza MD FAMILY HISTORY Family Member Condition Maternal Grandfather Family History of O ther Cancer Mother Family History of Ki dney/Renal Disease Father Family History of [facility]/CVA INSURANCE PROVIDERS Payer name Policy type / Coverage type [employer] party ID UHC MEDICARE COMPLETE HMO Other [id number] ADVANCE DIRECTIVES Name Date DISCUSSED - NO DECISION MADE TREATMENT PLAN Date Name Performer Cardiology Follow up Dionisio Velez Cardiology Follow up Dionisio Velez Cardiology Follow up Dionisio Velez Cardiology Follow up Dionisio Kohlert Cardiology Follow up Dionisio Jose Ft Cardiology Follow up Dionisio Kohlert Cardiology Yvette Garza MD Cardiology Yvette Garza MD Cardiology Yvette Garza MD Cardiology Yvette Garza MD Cardiology Yvette Garza MD Cardiology follow up Bipinidoreen cabrera MD Cardiology follow up Bipiniya Roldan cabrera MD Cardiology follow up Bipiniya Sing h Cardiology follow up Toniya Sing h Cardiology follow up Bipinidoreen cabrera MD Cardiology Follow up Bipinidoreen cabrera MD Cardiology Follow up Yvette cabrera MD Cardiology Yvette Garza MD Cardiology Yvette Garza MD Cardiology:Has bloodwork schedul ed. Yvette Garza MD Cardiology:Will check iron studi es. Yvette Garza MD Cardiology Yvette Garza MD Hem/Onc Follow up :P atient had absent stainable iron stores. Start oral ferrous supplementation. Recheck iron stores on follow up. Orders: I NEIL AND TOTAL IRON BINDING CAPACITY (7573) F ERRITIN (457) Paulo Esteban MD Hem/Onc Follow up :I will refer to Dr. Salazar for evaluation. He has a chronic nonhealing venous ulcer of right LE. Paulo Esteban MD Hem/Onc Follow up :T he patient's work up has been unrevealing. His bone marrow biopsy showed no evidence of MDS. He has no medications that can cause thrombocytopenia. His liver and spleen ultrasound are pending to rule out liver disease/hypersplenism as cause of thrombocytopenia. If this is ruled out, the diagnsois is likely chronic ITP. The patient has no clnical sequelae. I reassured the patient. He will return in 4 months for repeat blood testing. Paulo Esteban MD Hem/Onc Follow up :T he patient has had chronic thrombocytopenia dating back to November 2014. The patient previous work up revealed a mildly elevated Sed rate and LDH. I will obtain a CT scan of abd/pelvis to evaluate his abdominal pain. I will repeat platelet count on citrate to rule out pseudothrombocytopenia. Gven the elevated LDH, I will obtain a bone marrow biopsy to rule out an underlying MDS. He will return in 4 weeks for follow up. Orders: S NOMED-CT: [id number] Current Medications Documented ([id number]) P latelet Count on Citrated Bld (909264) L DH (847996) C T Abd and pelvis with contrast (CPT-10271) C BC (INCLUDES DIFF/PLT) (6999) 9 9214 MOD Complex (CPT-43210) Paulo Esteban MD Hem/Onc New Patient :The patient fits criteria for low dose CT screening for lung cancer. Orders: C T Chest - low dose for lung cancer screening (CPT-44210) 9 9244 MOD C omplex (CPT-39324) Paulo Esteban MD Hem/Onc New Patient :The patient has had moderate thrombocytopenia since at least November 2014. He has not started any new medications. His other blood counts remain intact. He has no clinical sequealae due to his thrombocytopenia. I will check nutritional studies, SPEP, LDH, Haptoglobin, Retic, Sed rate, TSH, ANAHI and RF. I agree with obtaining a CT abd/pelvis for futher evaluation of his left sided abdominal pain. He will return in two weeks to review lab testing. Orders: F ERRITIN (457) E LECTROPHORESIS AND IMMUNOFIXATION, SERUM WITH TRACING (88781) T SH (875727) A NA w/Reflex (902297) R heumatoid Arthritis Factor (626060) H aptoglobin (686278) 9 9244 MOD C omplex (CPT-94424) T SH (915060) F olic acid; RBC (63865) I NEIL AND TOTAL IRON BINDING CAPACITY (7573) R ETICULOCYTE COUNT, MANUAL (8699) V ITAMIN B12 (927) L DH (506114) P latelet Count (CPT-37153) S ED RATE BY MODIFIED WESTERGREN (809) Paulo Esteban MD FU: T he following medications were removed from the medication list: Aspirin 81 Mg Tabs (Aspirin) ..... One tab. daily His updated medication list for this problem includes: Aspirin 325 Mg Tabs (Aspirin) ..... One tab. daily Yvette Garza MD : T he following medications were removed from the medication list: Lisinopril 5 Mg Tabs (Lisinopril) ..... One tab. daily His updated medication list for this problem includes: Aspirin 81 Mg Tabs (Aspirin) ..... One tab. daily Prior BP: 122/82 (08/02/2013) Yvette Garza MD : T he following medications were removed from the medication list: Lisinopril 5 Mg Tabs (Lisinopril) ..... One tab. daily His updated medication list for this problem includes: Aspirin 81 Mg Tabs (Aspirin) ..... One tab. daily Prior BP: 122/82 (08/02/2013) Yvette Garza MD : B P today: / Prior BP: 122/82 (08/02/2013) Yvette Garza MD : T he following medications were removed from the medication list: Lisinopril 5 Mg Tabs (Lisinopril) ..... One tab. daily His updated medication list for this problem includes: Aspirin 81 Mg Tabs (Aspirin) ..... One tab. daily BP today: / Prior BP: 122/82 (08/02/2013) C arotid Doppler/Duplex: Normal carotid duplex examination. Vertebral flow is antegrade bilaterally. - GC (08/15/2013) Yvette Garza MD : T he following medications were removed from the medication list: Lisinopril 5 Mg Tabs (Lisinopril) ..... One tab. daily His updated medication list for this problem includes: Aspirin 81 Mg Tabs (Aspirin) ..... One tab. daily BP today: / Prior BP: 122/82 (08/02/2013) Yvette Garza MD new patient visit: H is updated medication list for this problem includes: Lisinopril 5 Mg Tabs (Lisinopril) ..... One tab. daily Aspirin 81 Mg Tabs (Aspirin) ..... One tab. daily BP today: 122/82 Yvette Garza MD new patient visit: H is updated medication list for this problem includes: Lisinopril 5 Mg Tabs (Lisinopril) ..... One tab. daily Aspirin 81 Mg Tabs (Aspirin) ..... One tab. daily BP today: 122/82 Prior BP: / () Yvette Garza MD Date Name X-Ray, Hand Stress Regadenoson Complete Echo STR - Adenosine DLCO - 54363 FRC - 45339 FVC - 33712 Complete Echo IRON AND TOTAL IRON BINDING CAPACITY FERRITIN CBC (INCLUDES DIFF/P LT) FERRITIN IRON AND TOTAL IRON BINDING CAPACITY LDH COMPREHENSIVE METABO LIC PANEL W/EGFR CBC (INCLUDES DIFF/P LT) CBC (INCLUDES DIFF/P LT) CT Abd and pelvis wi th contrast LDH Platelet Count on Ci trated Bld TSH SED RATE BY MODIFIED WESTERGREN Platelet Count CT Chest - low dose for lung cancer screening LDH Haptoglobin Rheumatoid Arthritis Factor ANAHI w/Reflex VITAMIN B12 TSH RETICULOCYTE COUNT, MANUAL IRON AND TOTAL IRON BINDING CAPACITY ELECTROPHORESIS AND IMMUNOFIXATION, SERUM WITH TRACING FERRITIN Folic acid; RBC HISTORY OF PROCEDURES Procedure Date Procedure Name Provider Procedure Notes S tatus EKG Yvette Garza MD completed EKG Yvette Garza MD completed Stress EKG Barrett Qureshi MD complete d Regadenoson, 4 units Yvette Garza MD completed Cardiolite, 2 units Yvette Garza MD completed SPECT Images Terrance Chiang MD compl eted BLOOD COUNT HEMOGLOBIN Yvette Garza MD completed FVC / MVV with bronchodilator - 05023 Yvette Garza MD completed FRC - 69042 Yvette Garza MD complete d SpO2 - 72953 Yvette Garza MD complet ed DLCO - 30903 Yvette Garza MD complet ed EKG Yvette Garza MD completed SNOMED-CT: 596154841 037249 Current Medications Documented Yvette Garza MD completed Ultrasound, abdomen, complete Paulo Esteban MD completed SNOMED-CT: 727298316 426053 Current Medications Documented Paulo Esteban MD completed SNOMED-CT: 622613875 151602 Current Medications Documented Paulo Esteban MD completed SNOMED-CT: 813843685 538860 Current Medications Documented Paulo Esteban MD completed EKG Yvette Garza MD completed EKG Yvette Garza MD completed
--- OUTSIDE RECORDS SUMMARY | 2024-07-04 16:32 | XMS_ITS | Clinical Summary ---
Author Organization [facility] Facility Address [address] [facility] [address] [place] [address] Care Team Providers Care It Instructor Name Role Phone Unavailable Primary Care Provider Unavailabl e Encounters Date Type Department Care Team Description 05/10/2024 Documentation Only [facility]. [address] [facility] [address] [place] [address] Eugenio Garcia MD from Last 3 Months Social History Tobacco Use Types Packs/Day Years Used Date Smoking Tobacco: Never Assessed Sex and Gender Information Value Date Recorded Sex Assigned at Not on file Legal Sex Male 2:03 PM EST Gender Identity Not on file Sexual Orientation Not on file Plan of Treatment Health Maintenance Due Date Last Done Comments Pneumococcal Vaccine: 65+ Years (1 of 2 - PCV) [birth year]06/1961 Colorectal Cancer Screening: Annual FOBT 07/06/2004 Colorectal Cancer Screening: Colonoscopy 07/06/2004 Colorectal Cancer Screening: Sigmoidoscopy 07/06/2004 Influenza Vaccine (#1) 2023 8, 04/21/2017, 04/20/2017, Additional history exists Hepatitis B Vaccine Aged Out No longe r eligible based on patient's age to complete this topic
--- OUTSIDE RECORDS SUMMARY | 2024-07-04 16:32 | XMS_ITS ---
Author Organization [facility] Address [address] [place] [address] Care Team Providers Care Makeup Sales Consultant Name Role Phone Oren Garza Unavailable [phone] Encounters Encounter Location Date Provider Diagnosis [facility] [address] [facility] [address] [place] [address] 09/30/2023 Oren Garza Chronic kidney disea se, stage 3 unspecified N18.30 ; Edema, unspecified R60.9 ; Essential (primary) hypertension I10 ; Heart failure, unspecified I50.9 ; Hyperlipidemia, unspecified E78.5 ; Proteinuria, unspecified R80.9 and Renal osteodystrophy N25.0 ASSESSMENTS Encounter Date Diagnosis Assessment Notes Treatment [...] - N25.0) PLAN OF TREATMENT No Information Progress Notes * Soy WILEYDOB: [birth year] (68 yo M)Acc No.[id number]:09/30/2023 Progress Notes Patient: Soy WILEY Provider: MD MATT, F.A.C.P, F.A.S.N. :1955 Age:68 Y Sex:Male Date:09/30/2023 Address:[address] [place], [place] [id number] Subjective: * Chief Complaints: * * Medical History: Objective: Assessment: * Assessment: 1. Chronic kidney disease, stage 3 unspecified - N18.30 (Primary) 2. Edema, unspecified - R60.9 3. Essential (primary) hypertension - I10 4. Heart failure, unspecified - I50.9 5. Hyperlipidemia, unspecified - E78.5 6. Proteinuria, unspecified - R80.9 7. Renal osteodystrophy - N25.0 Plan: * Treatment: * Billing Information: * Visit Code: 44625 Office Visit, Est Pt., Level 4. * Procedure Codes: * Sign off status: Pending * Provider: MD MATT, F.A.C.P, F.A.S.N. Date: 09/30/2023
--- OUTSIDE RECORDS SUMMARY | 2024-07-04 16:32 | XMS_ITS | Referral Summary ---
Author Organization [facility] Address [address] [place] [address] Care Team Providers Care Clinical Massage Therapist Name Role Phone Gianluca Zavala MD Primary Care Provider Nico Garcia MD PhD Unavailable Subha Echavarria DRAWING KILN SUPERVISOR Unavailable [phone] Allergies Active Allergy Reactions Criticality Noted Date Comments Lidocaine-Menthol Other (See comments) Low 03/17/20 18 Pt stated irritated skin Methyl Salicylate-Menthol Rash High 09/22/2018 Medications diphenhydrAMINE (BENADRYL) 25 mg capsule Take 2 tablet/capsule (50 mg total) by mouth every 6 (six) hours as needed for itching Active cholecalciferol (VITAMIN D-3) 50,000 unit capsule Take 1 capsule (50,000 Units total) by mouth once a week. 12 capsule 9 Active acetaminophen 500 mg capsule Take 2 capsules (1,000 mg total) by mouth every 6 (six) hours. 30 tablet 9 Active atorvastatin (LIPITOR) 40 mg tabletIndicatio ns:hyperlipidem ia Take 1 tablet (40 mg total) by mouth daily 90 tablet 1 9 Active bisacodyl EC (DULCOLAX EC) 5 mg EC tabletIndicatio ns:constipation Take 1 tablet (5 mg total) by mouth daily as needed for constipation Active iron aspgly,ps-C-B12 -FA-Ca-suc 150-60-25-1 po-xt-nww-mg capsule Take by mouth Active aspirin 81 mg enteric coated tablet Active buPROPion SR (ZYBAN) 150 mg 12 hr tabletIndicatio ns:Nicotine dependence with current use Take 1 tablet (150 mg total) by mouth as directed Take one 150 mg tablet every morning for 3 days, then take one 150 mg tablet twice daily for the remainder of the treatment period. 57 tablet 3 2 Active mirtazapine (REMERON) 15 mg tablet Take 1 tablet (15 mg total) by mouth nightly at bedtime 3 Active triamcinolone (KENALOG) 0.1 % cream 4 Active losartan (COZAAR) 50 mg tablet Take 1 tablet (50 mg total) by mouth daily 4 Active ergocalciferol (VITAMIN D) 50,000 unit capsule Take 1 capsule (50,000 Units total) by mouth once a week 4 Active clobetasoL (TEMOVATE) 0.05 % ointment APPLY THIN LAYER TOPICALLY TO THE AFFECTED AREA TWICE DAILY 4 Active clobetasoL (TEMOVATE) 0.05 % cream 4 Active calcitRIOL (ROCALTROL) 0.25 mcg capsule Take 1 capsule (0.25 mcg total) by mouth daily 4 Active ARIPiprazole (ABILIFY) 2 mg tablet Take 1 tablet (2 mg total) by mouth nightly at bedtime 4 Active carbidopa-levod opa (SINEMET) 25-100 mg per tabletIndicatio ns:Parkinsonism Take 1 tablet by mouth 3 (three) times a day 90 tablet 11 4 09/01/19 25 Active levETIRAcetam (KEPPRA) 500 mg tablet TAKE 2 TABLETS BY MOUTH IN THE MORNING AND IN THE EVENING 120 tablet 11 4 Active Active Problems Problem Noted Date Diagnosed Date Edema 09/01/2023 Heart failure 09/01/2023 Proteinuria 09/01/2023 Renal osteodystrophy 09/01/2023 Stage 3 chronic kidney disease 09/01/2023 Hemiparesis affecting left s tracey as late effect of cerebrovascular accident 10/08/2022 Seizure disorder 10/08/2022 Cervical myelopathy 10/08/2022 Arm pain 10/09/2021 Abdominal pain 04/13/2021 Dizziness and giddiness 04/13/2021 Increased frequency of urination 04/13/2021 Nausea and vomiting 04/13/2021 Open wound of lower limb 04/13/2021 Swelling of limb 04/13/2021 Arthritis of left shoulder region 10/10/2020 Monoparesis of upper extremity 04/29/2020 Fatigue 01/05/2019 Hypertensive disorder 01/05/2019 Primary localized osteoarthritis of pelvic regio n and thigh 01/05/2019 Radiotherapy follow-up 01/05/2019 Snoring 01/05/2019 Splenomegaly 01/05/2019 Venous stasis 01/05/2019 Migraine without aura and wi thout status migrainosus, not intractable 09/25/2018 ' 04/07/2018 Partial idiopathic epilepsy with seizures of localized onset, not intractable, without status epilepticus 01/06/2018 Transient ischemic attack (T IA), and cerebral infarction without residual deficits(V12.54) 12/16/2017 ESTELA (obstructive sleep apnea) 12/16/2017 Cognitive decline 12/16/2017 Left arm numbness 12/16/2017 Thrombocytopenia 10/29/2017 Spasticity 09/26/2017 Overview (09/26/2017): Added automatically from request for surgery [id number] 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 Other forms of dyspnea 03/21/2017 Dyslipidemia 02/08/2017 Peripheral venous insufficiency 01/15/2016 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 Tobacco dependence syndrome 08/02/2013 Resolved Problems Problem Noted Date Diagnosed Date Resolved Date 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 03/17/2018 Immunizations Immunization Administration Dates Next Due Influenza, Quadrivalent, Natasha l Culture-based MDCK, Preservative Free, Antibiotic Free, Intramuscular 04/20/2017 Influenza, Quadrivalent, Split, Intramuscular Influenza, Quadrivalent, Spl it, Preservative Free, Intramuscular 03/01/2018 Influenza, Trivalent, High D ose, Split, Preservative Free, Intramuscular 01/25/2014 Influenza, Trivalent, IM (MDV) 02/10/2015 Social History Tobacco Use Types Packs/Day Years Used Date Smoking Tobacco: Every Day Cigarettes 1 45.8 Started: 1985 Smokeless Tobacco: Never Tobacco Cessation:Ready to Q uit: Not Asked; Counseling Given: Not Answered Comments:pt stated never stop smoking. Smoked for 45 yrs Alcohol Use Standard Drinks/Week Comments Yes 1 (1 standard drink = 0.6 oz pur e alcohol) AUDIT-C Answer Date Recorded Q1: How often do you have a drink containing alc ohol? Never 2021 Average Number of Drinks Not on file 022 Frequency of Binge Drinking Not on file 08/2021 Personal Safety Answer Date Recorded Have you ever been in or are you currently in a harmful physical or emotional relationship or is someone making you feel afraid or unsafe? 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 Gender Identity Not on file Sexual Orientation Not on file Last Filed Vital Signs Vital Sign Reading Time Taken Comments Blood Pressure 163/103 09/01/2023 10:42 AM CDT Pulse 98 09/01/2023 10:42 AM CDT Temperature 36.6 C (97.8 F) 06/23/2022 12:47 PM CDT Respiratory Rate 16 06/23/2022 12:47 PM CDT Oxygen Saturation 95% 06/23/2022 12:47 PM CDT Inhaled Oxygen Concentration - - Weight 91.6 kg (202 lb) 09/01/2023 10:42 AM CDT Height 185.4 cm (6' 1 ) 09/01/2023 10:42 AM CDT Body Mass Index 26.65 09/01/2023 10:42 AM CDT Plan of Treatment Not on file Medical Devices Implanted Type Area Training And Development Project Leader Device Identifier Shelf Expiration Date Model / Serial / Lot Rt Total Hip Arthroplasty Right: Hip [employer] Inc Os-201 Hemasorb Spatula Wax 2gm Bone Sterile - [id number] Implanted:Qty: 1 on 05/11/2018 by Jose Villagomez MD at [facility] N/A: Spine Cervical [employer] 10/02/2020 OS-201 / / [id number] [employer] 700-025 I Factor Allograft Putty Syringe Graft 2.5cc Bone - [id number] Implanted:Qty: 1 on 05/11/2018 by Jose Villagomez MD at [facility] N/A: Spine Cervical [employer] [id number] 03/03/2021 700-025 / / [id number] Lifenet [id number] Bio Avs 14x7mm Monolithic Texture Plug Chamfer Leading Edge Spine - [id number] - [id number] Implanted:Qty: 1 on 05/11/2018 by Jose Villagomez MD at [facility] N/A: Spine Cervical [employer] 06/27/2022 [id number] / [id number] / Frieda Spine [id number] Aviator 14x17.4x2.5mm Level 1 Automatic Lock System Spring Load - [id number] Implanted:Qty: 1 on 05/11/2018 by Jose Villagomez MD at [facility] N/A: Spine Cervical [employer]a [employer]ine [id number] / / Frieda Spine [id number] Aviator 4mm 14mm Variable Angle Self Tap Spine Cervical Anterior - [id number] Implanted:Qty: 4 on 05/11/2018 by Jose Villagomez MD at [facility] N/A: Spine Cervical [place] [employer]ine [id number] / / Procedures Procedure Name Priority Date/Time Associated Diagnosis Comments CT CHEST ABDOMEN PELVIS WO CONTRAST Schedule Routine, Read Routine (OP Routine) 11/03/2017 1:31 PM CDT Thrombocytopenia HEPATITIS PANEL, ACUTE Routine 10/27/2017 4:15 PM CDT Thrombocytopenia from Last 3 Months or Most Recently Relevant to Health Maintenance Results * CT chest abdomen pelvis without contrast (11/03/2017 1:31 PM CDT) Anatomical Region Laterality Modality Body N/A Computed Tomogra phy 11/03/2017 2:39 PM CDT Impressions 11/03/2017 4:10 PM CDT 1. There is no malignant process in the chest abdomen pelvis to explain the patient's weight loss. 2. Stable nonspecific distal rectal thickening, possibly inflammatory. No adjacent stranding or lymphadenopathy. Consider correlation with proctoscopy. 3. Non-specific 4 mm groundglass nodule in the right upper lobe could be inflammatory. This could be compared with a remote prior study or continued attention on follow-up. Electronically signed by: Lakshmi Richards M.D. Narrative 11/03/2017 4:10 PM CDT EXAMINATION: CT of the chest, abdomen, and pelvis without intravenous contrast. HISTORY: A 62 years man with thrombocytopenia and weight loss. TECHNIQUE: Transaxial computed tomographic images of the chest, abdomen and pelvis were obtained without intravenous contrast. COMPARISON: None FINDINGS: CHEST: There is no supraclavicular, axillary mediastinal, or hilar lymphadenopathy. Heart size is normal without pericardial effusion. There is mild atherosclerotic calcification of the coronary vessels. There is mild emphysematous changes. There is a nonspecific groundglass nodule in the right upper lobe position -66 measuring 4 mm, and a right lower lobe calcified granuloma. A pneumatocele is seen in the left lower lobe. There is bibasilar dependent atelectasis. There is no pleural effusion or pneumothorax. ABDOMEN AND PELVIS: There is a hypodense area in segment 2 of the liver with an attenuation suggestive of a cyst. But given the lack of contrast, it can also be a hemangioma. Gallbladder is normal. There is no intra or extrahepatic biliary ductal dilatation. The pancreas is normal. The spleen has some subcapsular calcification, likely from prior trauma or infarct. . The esophagus, stomach, and duodenum appear normal. Both adrenals are normal. Both kidneys appear normal. 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 There is a right pelvicalyceal system. The urinary bladder is normal. The prostate is slightly enlarged with calcifications. There is mild colonic diverticulosis without diverticulitis. Mild non-specific thickening of the distal rectum is stable. The bowel is normal in course and caliber without evidence of obstruction. There is no intraperitoneal free fluid or air. There is mild atherosclerotic calcification of the aorta and iliac vessels. There is no intra-abdominal lymphadenopathy. There are no suspicious bony lesions. There is scoliosis with multilevel degenerative disc disease. Procedure Note Lakshmi Richards MD - 11/03/2017 EXAMINATION: CT of the chest, abdomen, and pelvis without intravenous contrast. HISTORY: A 62 years man with thrombocytopenia and weight loss. TECHNIQUE: Transaxial computed tomographic images of the chest, abdomen and pelvis were obtained without intravenous contrast. COMPARISON: None FINDINGS: CHEST: There is no supraclavicular, axillary mediastinal, or hilar lymphadenopathy. Heart size is normal without pericardial effusion. There is mild atherosclerotic calcification of the coronary vessels. There is mild emphysematous changes. There is a nonspecific groundglass nodule in the right upper lobe position -66 measuring 4 mm, and a right lower lobe calcified granuloma. A pneumatocele is seen in the left lower lobe. There is bibasilar dependent atelectasis. There is no pleural effusion or pneumothorax. ABDOMEN AND PELVIS: There is a hypodense area in segment 2 of the liver with an attenuation suggestive of a cyst. But given the lack of contrast, it can also be a hemangioma. Gallbladder is normal. There is no intra or extrahepatic biliary ductal dilatation. The pancreas is normal. The spleen has some subcapsular calcification, likely from prior trauma or infarct. . The esophagus, stomach, and duodenum appear normal. Both adrenals are normal. Both kidneys appear normal. 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 There is a right pelvicalyceal system. The urinary bladder is normal. The prostate is slightly enlarged with calcifications. There is mild colonic diverticulosis without diverticulitis. Mild non-specific thickening of the distal rectum is stable. The bowel is normal in course and caliber without evidence of obstruction. There is no intraperitoneal free fluid or air. There is mild atherosclerotic calcification of the aorta and iliac vessels. There is no intra-abdominal lymphadenopathy. There are no suspicious bony lesions. There is scoliosis with multilevel degenerative disc disease. IMPRESSION: 1. There is no malignant process in the chest abdomen pelvis to explain the patient's weight loss. 2. Stable nonspecific distal rectal thickening, possibly inflammatory. No adjacent stranding or lymphadenopathy. Consider correlation with proctoscopy. 3. Non-specific 4 mm groundglass nodule in the right upper lobe could be inflammatory. This could be compared with a remote prior study or continued attention on follow-up. Electronically signed by: Lakshmi Richards M.D. Sweta Nickerson MD IMG CT PROCEDURES Final Resu lt * Hepatitis panel, acute (10/27/2017 4:15 PM CDT) Hep A IgM Nonreactive Nonreactive [facility] Comment: Interpretive Data If test is reported as GRAYZONE, new sample should be drawn in two weeks for testing. Current interpretive data was last revised on 2016. Hep B core IgM Nonreactive Nonreactive [facility] Comment: Interpretive Data If test is reported as GRAYZONE, new sample should be drawn for testing. Current interpretive data was last revised on 2016. Hep C Ab Nonreactive Nonreactive [facility] Comment: Interpretive Data Positive and greyzone results should be confirmed by a molecular method. If positive or greyzone, a second separately collected sample should be submitted for Hepatitis C Virus RNA. Detection and Quantitation by Real-Time Reverse Apprentice Embalmer-PCR.Current Interpretive data was last revised on 2016. HepBsAg Nonreactive Nonreactive [facility] Blood specimen (specimen) 10/27/2017 4:15 PM CDT 10/27/2017 4:26 PM CDT Narrative [facility] - 10/28/2017 10:18 AM CDT Sweta Nickerson MD LAB MICROBIOLOGY - GENERAL O RDERABLES Edited Result - Final [facility] Department [place] [address] from Last 3 Months or Most Recently Relevant to Health Maintenance [place] [address] [facility] AETNA MEDICARE [address] MDCR HMO REF [facility] MED[facility] Address: [address] [address] [place] [address] [id number] UHC MEDICARE ADVANTAGE [facility] Address: [address] [address] [place] [address] Advance Directives For more information, please contact: [phone] * Full Code (Latest Code Status on File) Date Activated Date Inactivated Comments 05/11/2018 7:44 AM 05/12/2018 5:49 PM * Full Code Date Activated Date Inactivated Comments 10/28/2017 11:55 PM 10/29/2017 7:16 PM Care Teams Clinical Massage Therapist Relationship Specialty Start Date End Date Gianluca Zavala MD [address] [facility] [address] [place] [address] PCP - General Internal Medicine 03/30/21 Nico Garcia MD PhD [address] [facility] [address] [place] [address] Referring Physician Neurology 05/06/22 Subha Echavarria NP [address], [place] [address] Nurse Practitioner Family Medicine 09/01/23
--- OUTSIDE RECORDS SUMMARY | 2024-07-04 16:32 | XMS_ITS | Clinical Summary ---
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 Other forms of dyspnea 03/21/2017 Dyslipidemia 02/08/2017 Peripheral venous insufficiency 01/15/2016 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 Tobacco dependence syndrome 08/02/2013 Resolved Problems Problem Noted Date Diagnosed Date Resolved Date 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 03/17/2018 Immunizations Immunization Administration Dates Next Due Influenza, Quadrivalent, Naatsha l Culture-based MDCK, Preservative Free, Antibiotic Free, Intramuscular 04/20/2017 Influenza, Quadrivalent, Split, Intramuscular Influenza, Quadrivalent, Spl it, Preservative Free, Intramuscular 03/01/2018 Influenza, Trivalent, High D ose, Split, Preservative Free, Intramuscular 01/25/2014 Influenza, Trivalent, IM (MDV) 02/10/2015 Surgical History Surgery Date Site/Laterality Comments ROTATOR CUFF REPAIR Rotator Cuff Repair - (Added by TW Conv) KNEE SURGERY Knee Surgery Right - (Added by TW Conv) COLONOSCOPY 04/04/2013 - 04/03/2014 CARDIAC CATHETERIZATION 04/04/2003 - 04/03/2004 LUMBAR PUNCTURE WO INJECTION , DIAGNOSTIC 06/23/2022 N/A Medical History Medical History Date Comments Personal history of other di seases of the musculoskeletal system and connective tissue History of back pain - (Adde d by TW Conv) Personal history of other di seases of the musculoskeletal system and connective tissue History of neck pain - (Adde d by TW Conv) Headache Chronic headache s - (Added by TW Conv) PVD (peripheral vascular disease) HTN (hypertension) Anemia GERD (gastroesophageal reflux disease) Hiatal hernia ESTELA (obstructive sleep apnea) Thrombocytopenia CVA (cerebral vascular accident) ([facility]) 10/2017 CKD (chronic kidney disease) 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 Cervical myelopathy ([facility]) Family History Medical History Relation Name Comments Stroke Father Stroke; Stroke Other Family history of cerebrovascular accident (CVA) - (Added by TW Conv) Anesthesia problems Neg Hx Relation Name Status Comments Father Other Social History Tobacco Use Types Packs/Day Years [...] on file 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 Gender Identity Not on file Sexual Orientation Not on file Obstetrics History Last Filed Vital Signs Vital Sign Reading [...] 09/01/2023 10:42 AM CDT Plan of Treatment Health Maintenance Due Date Last Done Comments Colon Cancer Screening-Colonoscopy 1955 Depression Screening 1955 Prostate Cancer Screening-PSA 1955 DTaP/Tdap/Td Vaccine (1 - Tdap) 07/06/1966 Hepatitis B Screening 07/06/1973 Pneumococcal vaccine 65+ (1 of 2 - PCV) 07/06/1974 Lung Cancer Screening 07/06/2005 Zoster Vaccine (1 of 2) 07/06/2005 Abdominal Aortic Aneurysm (A AA) Screen 07/06/2020 11/03/2017 Well Visit 65+ 07/06/2020 Fall Risk Assessment 06/24/2023 06/23/2022 Influenza Vaccine (#1) 2023 8, 04/21/2017, 04/20/2017, Additional history exists Hepatitis C Screening Completed 10/27/2017 Medical Devices Implanted Type Area Fish And Game Warden Device Identifier Shelf Expiration Date Model / Serial / Lot Rt Total Hip Arthroplasty Right: Hip Orthocon Inc Os-201 Hemasorb Spatula Wax 2gm Bone Sterile - [id number] Implanted:Qty: 1 on 05/11/2018 by Jose Villagomez MD at [facility] N/A: Spine Cervical Orthocon Inc 10/02/2020 OS-201 / / [id number] Cerapedics Inc 700-025 I Factor Allograft Putty Syringe Graft 2.5cc Bone - [id number] Implanted:Qty: 1 on 05/11/2018 by Jose Villagomez MD at [facility] N/A: Spine Cervical Cerapedics Inc [id number] 03/03/2021 700-025 / / [id number] Lifenet [id number] Bio Avs 14x7mm Monolithic Texture Plug Chamfer Leading Edge Spine - [id number] - [id number] Implanted:Qty: 1 on 05/11/2018 by Jose Villagomez MD at [facility] N/A: Spine Cervical Lifenet 06/27/2022 [id number] / [id number] / Frieda Spine [id number] Aviator 14x17.4x2.5mm Level 1 Automatic Lock System Spring Load - [id number] Implanted:Qty: 1 on 05/11/2018 by Jose Villagomez MD at [facility] N/A: Spine Cervical Frieda Spine [id number] / / [place] Spine [id number] Aviator 4mm 14mm Variable Angle Self Tap Spine Cervical Anterior - [id number] Implanted:Qty: 4 on 05/11/2018 by Jose Villagomez MD at [facility] N/A: Spine Cervical Frieda Spine [id number] / / Procedures Procedure Name Priority Date/Time [...] follow-up. Electronically signed by: Lakshmi Richards M.D. us Sweta Nickerson MD IM CT PROCEDURES Final Resu lt * Hepatitis panel, acute (10/27/2017 4:15 PM CDT) Hep A IgM Nonreactive Nonreactive [facility] Comment: Interpretive Data If test is reported as GRAYZONE, new sample should be drawn in two weeks for testing. Current interpretive data was last revised on 2016. Hep B core IgM Nonreactive Nonreactive [facility] Comment: Interpretive Data If test is reported as GRAYZONE, new sample should be drawn for testing. Current interpretive data was last revised on 2016. Hep C Ab Nonreactive Nonreactive [facility] Comment: Interpretive Data Positive and greyzone results should be confirmed by a molecular method. If positive or greyzone, a second separately collected sample should be submitted for Hepatitis C Virus RNA. Detection and Quantitation by Real-Time Reverse High School Coach-PCR.Current Interpretive data was last revised on 2016. HepBsAg Nonreactive Nonreactive [facility] Blood specimen (specimen) 10/27/2017 4:15 PM CDT 10/27/2017 4:26 PM CDT [facility]ative [facility] - 10/28/2017 10:18 AM CDT Sweta Nickerson MD LAB MICROBIOLOGY - GENERAL O RDERABLES Edited Result - Final [facility] [place] [address] from Last 3 Months or Most Recently Relevant to Health [place] [address] [place] [address] [facility] AETNA MEDICARE [facility] MEDICARE Address: [address] [address] [place] [address] MEDICARE ADVANTAGE [facility] MEDICARE Address: [address] [address] [place] [address] Advance Directives For more information, please contact: [phone] * Full Code (Latest Code Status on File) Date Activated Date Inactivated Comments 05/11/2018 7:44 AM 05/12/2018 5:49 PM * Full Code Date Activated Date Inactivated Comments 10/28/2017 11:55 PM 10/29/2017 7:16 PM Care Teams Quality Control Supervisor Relationship Specialty Start Date End Date Gianluca Zavala MD [address] [facility] [address] [place] [address] PCP - General Internal Medicine 03/30/21 Nico Garcia MD PhD [address] [facility] [address] [place] [address] Referring Physician Neurology 05/06/22 Subha Echavarria NP [address] [place] [address] Nurse Practitioner Family Medicine 09/01/23
--- NOTE | 2024-07-04 16:55 | ED_ITS ---
HPI - General Adult General Chief complaint: Wound/Laceration Stated complaint: wounds/ulecrs/pain Time Seen by Provider: 07/04/24 16:42 Source: patient and family Mode of arrival: ambulatory Limitations: no limitations History of Present Illness HPI narrative: 68 years old white male came to the ED with painful leg ulcers started over 1 month ago. Patient was seen by his family physician and scheduled to be seen at wound care clinic July 11. Patient came to the ED because cannot take the pain anymore. History of hypertension hyperlipidemia TIA seizure, smokes cigarettes, denies alcohol or drug use. Patient denies any recent trauma to the legs. Related Data Home Medications ?Medication ?Instructions ?Recorded ?Confirmed ?Last Taken ?Type aspirin 81 mg capsule 81 mg PO DAILY 04/27/21 04/27/21 05/27/21 History atorvastatin 40 mg tablet 40 mg PO DAILY 04/27/21 04/27/21 05/27/21 History levetiracetam 500 mg tablet 500 mg PO BID 04/27/21 04/27/21 05/27/21 History calcitriol 0.25 mcg capsule mcg 07/09/23 Unknown History ergocalciferol (vitamin D2) 1,250 07/09/23 Unknown History mcg (50,000 unit) capsule losartan 50 mg tablet mg 07/09/23 Unknown History mirtazapine 15 mg tablet mg 07/09/23 Unknown History Allergies Allergy/AdvReac Type Severity Reaction Status Date / Time menthol (From Icy Hot) Allergy Mild Rash Verified 07/04/24 15:27 methyl salicylate (From Icy Allergy Mild Rash Verified 07/04/24 15:27 Hot) Review of Systems Review of Systems: All systems reviewed & are unremarkable except as noted in HPI and below PMFSH Past Medical History Medical History Disease of brain Anxiety Depression Kidney disorder Hypertension Seizures Hyperlipidemia Memory impairment CVA (cerebral vascular accident) Surgical History Surgical History History of hip replacement H/O neck surgery History of eye surgery Social History Social History Smoking packs per day: 1 Smoking cigarettes per day: 20.0 Years smoked: 45 Smoking pack-years: 45.00 Smoking status: Current every day smoker Tobacco type: cigarettes Alcohol intake: never Substance use: never Substance use type: does not use Living arrangements: with family Spiritual care concerns: No Exam Narrative: General appearance: Well-developed, well-nourished Skin: Normal color Head: Normocephalic, nontraumatic Eyes: Clear conjunctiva ENT: Oropharynx normal, ears normal, nose normal Neck: Supple, nontender Chest and respiratory: Airway patent, no respiratory distress, no accessory muscle use Heart: Regular rate/rhythm Abdomen: Soft, nontender, no organomegaly, quiet bowel sounds Vascular: Normal peripheral pulses, normal capillary refill. Musculoskeletal: Left lower leg showing 3 x 2 cm dark scab at the back of the leg surrounded by erythema slightly warm, no discharge, right lower leg showing 2 x 4 mm scab at the lateral malleolus no erythema, no discharge, tender to touch. 1+ edema bilaterally Neurologic: Alert and oriented ?3, SHAREPOINT SOLUTIONS DEVELOPER is normal as tested, no gross motor deficit Course Vital Signs Vital signs: Vital Signs Temperature 36.7 C 07/04/24 15:20 Pulse Rate 86 07/04/24 15:20 Respiratory Rate 20 07/04/24 15:20 Blood Pressure 149/96 H 07/04/24 15:20 Pulse Oximetry 98 07/04/24 15:20 Oxygen Delivery Room Air 07/04/24 15:20 Temperature 36.7 C 07/04/24 15:20 Pulse Rate 69 07/04/24 17:45 Respiratory Rate 18 07/04/24 17:45 Blood Pressure 138/76 07/04/24 17:45 Pulse Oximetry 98 07/04/24 17:45 Oxygen Delivery Room Air 07/04/24 15:20 Medical Decision Making [facility] Narrative Medical decision making narrative: Patient presents with superficial ulceration recovered by scabs of the lower legs for over 1 month Vital signs are stable Physical examination showing superficial ulceration covered with scab, healing, 1 of them surrounded by erythema, cellulitis is a possibility Differential diagnosis leg ulceration secondary to chronic stasis dermatitis, poor peripheral circulation, trauma No imaging or labs are required at this time. My plan to discharge patient on Keflex and tramadol for pain The pt was discharged to home.the pt,s condition upon discharge was fair,education was provided to the pt in reference to the final impression,discharge study results,treatment,prognosis and need for follow up . Differential Diagnosis Differential Diagnosis: As above Vital Signs Vital Signs: Vital Signs Temperature 36.7 C 07/04/24 15:20 Pulse Rate 86 07/04/24 15:20 Respiratory Rate 20 07/04/24 15:20 Blood Pressure 149/96 H 07/04/24 15:20 Pulse Oximetry 98 07/04/24 15:20 Oxygen Delivery Room Air 07/04/24 15:20 Temperature 36.7 C 07/04/24 15:20 Pulse Rate 69 07/04/24 17:45 Respiratory Rate 18 07/04/24 17:45 Blood Pressure 138/76 07/04/24 17:45 Pulse Oximetry 98 07/04/24 17:45 Oxygen Delivery Room Air 07/04/24 15:20 Critical Care Time Critical Care Time Critical Care Time: No Discharge Plan Discharge Clinical Impression: Cellulitis, Ulceration Patient Disposition: Home, Self-Care Condition: Stable Instructions: Antibiotic Form, Cellulitis (ED) Additional Instructions: RETURN IF SYMPTOMS ARE WORSENING , CALL YOUR FAMILY PHYSICIAN FOR APPOINTMENT, TAKE TYLENOL, IBUPROFEN NEEDED FOR ACHES AND PAIN, CONTINUE HOME MEDICATI ONS. KEEP YOUR APPOINTMENT WITH THE WOUND CARE CLINIC KEEP LEG ELEVATED, Patient Language: Greek Prescriptions: New cephalexin 500 mg capsule 500 mg PO Q6H 7 Days Qty: 28 0RF tramadol 50 mg tablet 50 mg PO Q4H PRN (Reason: pain) Qty: 20 0RF No Action atorvastatin 40 mg tablet 40 mg PO DAILY levetiracetam 500 mg tablet 500 mg PO BID aspirin 81 mg Capsule 81 mg PO DAILY losartan 50 mg tablet mirtazapine 15 mg tablet ergocalciferol (vitamin D2) 1,250 mcg (50,000 unit) capsule calcitriol 0.25 mcg capsule Follow-up/Referrals: Sally,Carlos Eduardo Hough. [Primary Care Provider] -
--- OUTSIDE RECORDS SUMMARY | 2024-07-04 17:03 | XMS_ITS | Encounter Summary ---
Author Organization [facility] Address [address] [place] [address] Phone Care Team Providers Care Maintenance Specialist Name Role Phone Mina House MD Primary Care Provider [phone] Gianluca Zavala MD Primary Care Provider Nico Garcia MD PhD Unavailable Subha Echavarria SALES SUPPORT REPRESENTATIVE Unavailable [phone] Encounter Details Date Type Department Care Team (Late st Contact Info) Description 09/29/2017 Telephone [facility] Neurosurgery [address] 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 Gender Identity Not on file Sexual Orientation Not on file documented as of this encounter Plan of Treatment Not on file documented as of this encounter Visit Diagnoses Not on filedocumented in this encounter Care Teams Maintenance Specialist Relationship Specialty Start Date End Date Mina House MD PCP - General 07/19/17 03/29/21 Gianluca Zavala MD [address] [facility] [address] [place] [address] PCP - General Internal Medicine 03/30/21 Nico Garcia MD PhD [address] [facility] [address] [place] [address] Referring Physician Neurology 05/06/22 Subha Echavarria NP [address] [place] [address] Nurse Practitioner Family Medicine 09/01/23 documented as of this encounter
--- OUTSIDE RECORDS SUMMARY | 2024-07-04 17:03 | XMS_ITS | Encounter Summary ---
Author Organization [facility] Address [address] [place] [address] Phone Care Team Providers Care Optometric Coordinator Name Role Phone Mina House MD Primary Care Provider [phone] Gianluca Zavala MD Primary Care Provider Nico Garcia MD PhD Unavailable Subha Echavarria CROWNING INSPECTOR Unavailable [phone] Encounter Details Date Type Department Care Team (Late st Contact Info) Description 09/28/2017 Telephone [facility] Neurosurgery [address] 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 Gender Identity Not on file Sexual Orientation Not on file documented as of this encounter Plan of Treatment Not on file documented as of this encounter Visit Diagnoses Not on filedocumented in this encounter Care Teams Optometric Coordinator Relationship Specialty Start Date End Date Mina House MD PCP - General 07/19/17 03/29/21 Gianluca Zavala MD [address] [facility] [address] [place] [address] PCP - General Internal Medicine 03/30/21 Nico Garcia MD PhD [address] [facility] [address] [place] [address] Referring Physician Neurology 05/06/22 Subha Echavarria NP [address] [place] [address] Nurse Practitioner Family Medicine 09/01/23 documented as of this encounter
--- OUTSIDE RECORDS SUMMARY | 2024-07-04 17:05 | XMS_ITS | Clinical Summary ---
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 Other forms of dyspnea [...] sleep apnea) Thrombocytopenia CVA (cerebral vascular accident) ([facility]) 10/2017 CKD (chronic kidney disease) 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 Cervical myelopathy ([facility]) Family History Medical History Relation Name Comments [...] on file 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 Gender Identity Not on file Sexual [...] Completed 10/27/2017 Medical Devices Implanted Type Area Residential Caregiver Device Identifier Shelf Expiration Date Model / Serial / Lot Rt Total Hip Arthroplasty Right: Hip Orthocon Inc Os-201 Hemasorb Spatula Wax 2gm Bone Sterile - [id number] Implanted:Qty: 1 on 05/11/2018 by Jose Villagomez MD at [facility] N/A: Spine Cervical Orthocon Inc 10/02/2020 OS-201 / / [id number] Cerapedics Inc 700-025 I Factor Allograft Putty Syringe Graft 2.5cc Bone - [id number] Implanted:Qty: 1 on 05/11/2018 by oJse Villagomez MD at [facility] N/A: Spine Cervical Cerapedics Inc [id number] 03/03/2021 700-025 / / [id number] Lifenet [id number] Bio Avs 14x7mm Monolithic Texture Plug Chamfer Leading Edge Spine - [id number] - [id number] Implanted:Qty: 1 on 05/11/2018 by Jose Villagomez MD at [facility] N/A: Spine Cervical Lifenet 06/27/2022 [id number] / Frieda Spine [id number] Aviator 14x17.4x2.5mm Level 1 Automatic Lock System Spring Load - [id number] Implanted:Qty: 1 on 05/11/2018 by Jose Villagomez MD at [facility] N/A: Spine Cervical Frieda Spine [id number] / / [place] Spine [id number] Aviator 4mm 14mm Variable Angle Self Tap Spine Cervical Anterior - [id number] Implanted:Qty: 4 on 05/11/2018 by Jose Villagomez MD at [facility] N/A: Spine Cervical Frieda Spine [id number] / / Procedures Procedure Name Priority Date/Time [...] CDT) Hep A IgM Nonreactive Nonreactive [facility] Comment: Interpretive Data If test is reported as GRAYZONE, new sample should be drawn in two weeks for testing. Current interpretive data was last revised on 2016. Hep B core IgM Nonreactive Nonreactive [facility] Comment: Interpretive Data If test is reported as GRAYZONE, new sample should be drawn for testing. Current interpretive data was last revised on 2016. Hep C Ab Nonreactive Nonreactive [facility] Comment: Interpretive Data Positive and greyzone results should be confirmed by a molecular method. If positive or greyzone, a second separately collected sample should be submitted for Hepatitis C Virus RNA. Detection and Quantitation by Real-Time Reverse Sales Representative Publications-PCR.Current Interpretive data was last revised on 2016. HepBsAg Nonreactive Nonreactive [facility] Blood specimen (specimen) 10/27/2017 4:15 PM CDT 10/27/2017 4:26 PM CDT Narrative [facility] - 10/28/2017 10:18 AM CDT Sweta Nickerson MD LAB MICROBIOLOGY - GENERAL O RDERABLES Edited Result - Final [facility] One [facility] Department [place] [address] from Last 3 Months or Most Recently Relevant to Health [place] [address] [place] [address] [facility] AETNA MEDICARE [address] MEDICARE ADVANTAGE Advance Directives For more information, please contact: [phone] * Full Code (Latest Code Status on File) Date Activated Date Inactivated Comments 05/11/2018 7:44 AM 05/12/2018 5:49 PM * Full Code Date Activated Date Inactivated Comments 10/28/2017 11:55 PM 10/29/2017 7:16 PM Care Teams Manager Of Global Relationship Specialty Start Date End Date Gianluca Zavala MD [address] [facility] [address] [place] [address] PCP - General Internal Medicine 03/30/21 Nico Garcia MD PhD [address] [facility] [address] [place] [address] Referring Physician Neurology 05/06/22 Subha Echavarria NP [address] [place] [address] Nurse Practitioner Family Medicine 09/01/23
--- OUTSIDE RECORDS SUMMARY | 2024-07-04 17:05 | XMS_ITS | Clinical Summary ---
Author Organization [facility] Facility Address [address] [facility] [address] [place] [address] Care Team Providers Care Pulp Screen Operator Name Role Phone Unavailable Primary Care Provider Unavailabl e Encounters Date Type Department Care Team Description 05/10/2024 Documentation Only [facility] [place]. [address] [facility] [address] [place] [address] Eugenio Garcia MD from Last [...]
--- OUTSIDE RECORDS SUMMARY | 2024-07-04 17:05 | XMS_ITS | Referral Summary ---
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 Other forms of dyspnea [...] on file 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 Gender Identity Not on file Sexual Orientation [...] on file Medical Devices Implanted Type Area Automotive Technician Device Identifier Shelf Expiration Date Model / Serial / Lot Rt Total Hip Arthroplasty Right: Hip Orthocon Inc Os-201 Hemasorb Spatula Wax 2gm Bone Sterile - [id number] Implanted:Qty: 1 on 05/11/2018 by Jose Villagomez MD at [facility] N/A: Spine Cervical [employer] Inc 10/02/2020 OS-201 / / [id number] [employer] Inc 700-025 I Factor Allograft Putty Syringe Graft 2.5cc Bone - [id number] Implanted:Qty: 1 on 05/11/2018 by Jose Villagomez MD at [facility] N/A: Spine Cervical [employer] Inc [id number] 03/03/2021 700-025 / / [id number] Lifenet [id number] Bio Avs 14x7mm Monolithic Texture Plug Chamfer Leading Edge Spine - [id number] - [id number] Implanted:Qty: 1 on 05/11/2018 by Jose Villagomez MD at [facility] N/A: Spine Cervical [employer]et 06/27/2022 [id number] / [id number] / Frieda Spine [id number] Aviator 14x17.4x2.5mm Level 1 Automatic Lock System Spring Load - [id number] Implanted:Qty: 1 on 05/11/2018 by Jose Villagomez MD at [facility] N/A: Spine Cervical Frieda Spine [id number] / / Frieda Spine [id number] Aviator 4mm 14mm Variable Angle Self Tap Spine Cervical Anterior - [id number] Implanted:Qty: 4 on 05/11/2018 by Jose Villagomez MD at [facility] N/A: Spine Cervical Closplint Spine [id number] / / Procedures Procedure Name Priority Date/Time [...] PM CDT) Hep A IgM Nonreactive Nonreactive [facility] Comment: Interpretive Data If test is reported as GRAYZONE, new sample should be drawn in two weeks for testing. Current interpretive data was last revised on 2016. Hep B core IgM Nonreactive Nonreactive [facility] Comment: Interpretive Data If test is reported as GRAYZONE, new sample should be drawn for testing. Current interpretive data was last revised on 2016. Hep C Ab Nonreactive Nonreactive [facility] Comment: Interpretive Data Positive and greyzone results should be confirmed by a molecular method. If positive or greyzone, a second separately collected sample should be submitted for Hepatitis C Virus RNA. Detection and Quantitation by Real-Time Reverse Hand Iii Cutter-PCR.Current Interpretive data was last revised on 2016. HepBsAg Nonreactive Nonreactive [facility] Blood specimen (specimen) 10/27/2017 4:15 PM CDT 10/27/2017 4:26 PM CDT Narrative [facility] - 10/28/2017 10:18 AM CDT Sweta Nickerson MD LAB MICROBIOLOGY - GENERAL O RDERABLES Edited Result - Final [facility] [place] [address] from Last 3 Months or Most Recently Relevant to Health [place] [address] [place] [address] [facility] AETNA MEDICARE [address] MDCR HMO REF [id number] UHC MEDICARE ADVANTAGE Advance Directives For more information, please contact: [phone] * Full Code (Latest Code Status on File) Date Activated Date Inactivated Comments 05/11/2018 7:44 AM 05/12/2018 5:49 PM * Full Code Date Activated Date Inactivated Comments 10/28/2017 11:55 PM 10/29/2017 7:16 PM Care Teams Material Planning Analyst Relationship Specialty Start Date End Date Gianluca Zavala MD [address] [facility] [address] [place] [address] PCP - General Internal Medicine 03/30/21 Nico Garcia MD PhD [address] [facility] [address] [place] [address] Referring Physician Neurology 05/06/22 Subha Echavarria NP [address] [place] [address] Nurse Practitioner Family Medicine 09/01/23
--- OUTSIDE RECORDS SUMMARY | 2024-07-04 17:05 | XMS_ITS | CONTINUITY OF CARE DOCUMENT ---
Author Name [facility] Address Unknown Organization [facility] Address [address] [facility] [address] [place] [address] Phone [phone] Care Team Providers Care Business Area Director Name Role Phone Greg ANN, Yvette Unavailable [phone] NANCI BROOKE MD Unavailable NANCI BROOKE MD Unavailable PROBLEMS Condition Status Date Provider Notes TOBACCO ABUSE active Yvette Garza MD Hypercholesterolemia, mixed active Kennedi Gr uenenfelder Weakness of left arm active Dionisio Velez Preoperative cardiovascular examination for cervical spine and hip surgery active Yvette Garza MD AAA completed - Yvette Garza MD Sleep apnea- testing with Dr Sd House last yr, declined treatment. Will f/u with [facility] for treatment. completed - Yvette Garza MD Dementia- early onset active Yvette Eli DYSPNEA ON EXERTION- normal PFTs active Yvette Garza MD Iron deficiency completed - Yvette Garza MD Venous insufficiency, chronic active Paulo Esteban MD Chronic idiopathic thrombocytopenic purpura active Paulo Esteban MD DIZZINESS AND PALPITATIONS- HOLTER SR HR 60-144 active ? Isidoro Curry RN CHEST PAIN NL CATH 12/06. Nor mal echo and stress test 04/2020 active Dionisio Velez HTN CONTROLLED-08/15 CAROTID NEG completed - To meghan Garza MD HTN SYSTOLIC active Yvette Garza MD ENCOUNTERS Date Type Provider Location Encounter Diag nosis - In-person encounter Office Visit Yvette Garza MD [place] [facility] CHEST PAIN NL CATH 12/06. Normal echo and stress test 04/2020Weakness of left arm - In-person encounter Office Visit Yvette Garza MD [place] [facility] [facility] - In-person encounter Office Visit Yvette Garza MD [facility] HTN SYSTOLICHTN CONTROLLED-08/15 CAROTID NEGSleep apnea- testing with Dr. House last yr, declined treatment. Will f/u with [facility] for treatment.AAAPreoperativ e cardiovascular examination for cervical spine and hip surgery - In-person encounter Office Visit Yvette Garza MD [place] [facility] [facility] CHEST PAIN NL CATH 12/06. Normal echo and stress test 04/2020Iron deficiencyDYSPNEA ON EXERTION- normal PFTsDementia- early onset - In-person encounter Office Visit Yvette Garza MD [place] [facility] DYSPNEA ON EXERTION- normal PFTs - In-person encounter Office Visit Paulo Esteban MD [place] [facility] Chronic idiopathic thrombocytopenic purpuraVenous insufficiency, chronic - In-person encounter Office Visit Paulo Esteban MD [place] [facility] - In-person encounter Office Visit Paulo Esteban MD [place] [facility] Chronic idiopathic thrombocytopenic purpura - In-person encounter Office Visit Yvette Garza MD [place] [facility] [facility] - In-person encounter Office Visit Yvette Garza MD [place] [facility] [facility] - In-person encounter Office Visit Yvette Garza MD [facility] DIZZINESS AND PALPITATIONS-08/15 HOLTER SR HR 60-144 VITAL SIGNS Date Observation Value Provider Body Mass Index (Ratio) 27.57 kg/m2 Keith Garza MD blood pressure, cuff size large Ke rri Rivasrolandoraulrussellholden [facility] hospital[facility] blood pressure, diastolic 70 mm[Hg] Ke rri Michelle blood pressure, systolic 130 mm[Hg] Sarah ashley Rivasjosselyntung oxygen saturation, oximetry 96 % Kennedi Fortuneraulrusselltung respiratory rate E&M 16 /min Kennedi Cuadra kevinenerussellholden memorial hospitalmagalys pulse rate 91 /min Kennedi Grullon [facility] weight E&M 209 [lb_av] Kennedi Joee [facility] height E&M 73 [in_i] Kennedi Rivasjosselynchamp [facility] Body Mass Index (Ratio) 27.31 kg/m2 Keith [...] blood pressure, diastolic 80 mm[Hg] Da luis Harris blood pressure, systolic 118 mm[Hg] Dac ia [...] Mass Index (Ratio) 31.00 kg/m2 Hester i Micehlle weight E&M 235 [lb_av] Kennedi Diaze lder [...] cell distribution width, size density 38.6 fL [facility] immature granulocytes, percentage of total cells, blood 0.5 % [facility] nucleated red blood cells as percent of blood leukocytes 0.0 % [facility] red blood cell (erythrocyte) count, per high power field 0.0 10*3/UL [facility] - eosinophils as percent of blood leukocytes 4.7 % [facility] neutrophils as percent of blood leukocytes 52.4 % [facility] Absolute Neutrophils 3.2 CELLS/UL [employer] 1.5 - 7.8 basophils as percent of blood leukocytes 0.6 % [facility] Absolute Basophils 0.0 CELLS/UL [employer] 0.0 - 0.2 monocytes as percent of blood leukocytes 9.4 % [facility] Absolute Monocytes 0.6 CELLS/UL [employer] 0.2 - 1.0 lymphocytes as percent of blood leukocytes 32.4 % [facility] Absolute Lymphocytes 2.0 CELLS/UL [employer] [...] completed take one twice daily - Gina Gomez ZOLOFT 25 MG ORAL TABLET completed take [...] P gibran has been counseled to quit. vYette Garza MD seatbelt usage 100 % Ida Harris exercise type physical therapy [facility] physical exercise, f requency, days per week 1 /wk [facility] alcohol use no [facility] caffeine use, averag e drinks per day 2-3 [facility] drug use no [facility] smoking/tobacco cess ation, patient education and counseling yes [facility] passive cigarette sm diana exposure no [facility] smoking, date started 1973 [facility] smoking history, tot al pack/year 43 [facility] smoking history, tot al pack/day 1 [facility] cigarette use yes [facility] smoking status Current every day smoker D [facility] smoking, date started 1973 Dariana Mike [...] 100 % Dariana villarreal alcohol use no aDriana Galaviz r caffeine use, averag e drinks [...] no Paulo Eli alcohol use no Paulo lEi social history E&M Marital Statu s: P [...] Curry RN social history E&M Marital Status: Lisarichmap kiesha Garza MD social history reviewed E&M [...] Payer name Policy type / Coverage type [place] [employer] democr[employer] ID UHC MEDICARE COMPLETE HMO Other [id number] ADVANCE DIRECTIVES Name Date DISCUSSED - [...] weeks for follow up. Orders: S NOMED-CT: [id number] Current Medications Documented (SCT-[id number]) P latelet Count on Citrated Bld (961638) L DH (064534) C T Abd and pelvis with contrast (CPT-45108) C BC (INCLUDES DIFF/PLT) (7499) 9 9214 MOD Complex (CPT-75353) Paulo Esteban MD Hem/Onc New Patient :The patient fits criteria for low dose CT screening for lung cancer. Orders: C T Chest - low dose for lung cancer screening (CPT-59986) 9 9244 MOD C omplex (CPT-18944) Paulo Esteban MD Hem/Onc New Patient :The [...] E LECTROPHORESIS AND IMMUNOFIXATION, SERUM WITH TRACING (01263) T SH (332795) A NA w/Reflex (120637) R heumatoid Arthritis Factor (903150) H aptoglobin (109915) 9 9244 MOD C omplex (CPT-56867) T SH (693368) F olic acid; RBC (19350) I NEIL AND TOTAL IRON BINDING CAPACITY (7573) R ETICULOCYTE COUNT, MANUAL (8699) V ITAMIN B12 (927) L DH (617462) P latelet Count (CPT-51371) S ED RATE BY MODIFIED WESTERGREN (809) [...] Complete Echo STR - Adenosine DLCO - 41603 FRC - 23422 FVC - 18390 Complete Echo IRON AND TOTAL IRON BINDING [...] completed FVC / MVV with bronchodilator - 50659 Yvette Garza MD completed FRC - 33714 Yvette Garza MD complete d SpO2 - 77380 Yvette Garza MD complet ed DLCO - 89374 Yvette Garza MD complet ed EKG Yvette Garza MD completed SNOMED-CT: 127939543 571481 Current Medications Documented Yvette Garza MD completed Ultrasound, abdomen, complete Paulo Esteban MD completed SNOMED-CT: 395267782 708914 Current Medications Documented Paulo Esteban MD completed SNOMED-CT: 590906548 979049 Current Medications Documented Paulo Esteban MD completed SNOMED-CT: 636390611 307473 Current Medications Documented Paulo Esteban MD completed EKG Yvette Garza MD completed EKG Yvette Garza MD completed
[2024-07-04 17:45] VITALS: BP 138/76; PULSE 69; RESP 18; O2SAT 98
== END 2024-07-04 18:11 | disposition home or self-care (01) ==
PROVIDERS: Emergency Provider Emergency Medicine; PCP Internal Medicine Infectious Disease
DX: L03.116 Cellulitis of left lower limb (principal); L97.829 Non-pressure chronic ulcer of other part of left lower leg with unspecified severity; L97.319 Non-pressure chronic ulcer of right ankle with unspecified severity
CPT/HCPCS: 99283

== ENCOUNTER 2024-08-31 00:55 | Day surgery (SDC) | payer MEDICARE, SELFPAY ==
[2024-08-23 12:48] VITALS: BMI 26.4
--- OUTSIDE RECORDS SUMMARY | 2024-08-31 00:58 | XMS_ITS ---
Author Organization [facility] Address [address] [place] [address] Care Team Providers Care Ironer Hand Name Role Phone Oren Garza Unavailable [phone] Encounters Encounter Location Date Provider Diagnosis [place] [facility] [address] [facility] [address] [place] [address] 09/30/2023 Oren Garza Chronic kidney disea se, stage 3 unspecified N18.30 ; Edema, unspecified R60.9 ; Essential (primary) hypertension I10 ; Heart failure, unspecified I50.9 ; Hyperlipidemia, unspecified E78.5 ; Proteinuria, unspecified R80.9 and Renal osteodystrophy N25.0 Assessments Encounter Date Diagnosis (ICD Code) Assessment Notes Treatment Notes Treatment Clinical Notes Section Notes 09/30/2023 Chronic kidney disease, stage 3 unspecified (ICD-10 - N18.30) 09/30/2023 Edema, unspecified (ICD-10 - R60.9) 09/30/2023 Essential (primary) hypertension (ICD-10 - I10) 09/30/2023 Heart failure, unspecified (ICD-10 - I50.9) 09/30/2023 Hyperlipidemia, unspecified (ICD-10 - E78.5) 09/30/2023 Proteinuria, unspecified (ICD-10 - R80.9) 09/30/2023 Renal osteodystrophy (ICD-10 - N25.0) Plan Of Treatment No Information Progress Notes * Soy WILEYDOB: [birth year] (69 yo M)Acc No.[id number]:09/30/2023 Progress Notes Patient: Soy HERNANDEZ Provider: Noman HILLIARD MD, F.A.C.P, F.A.S.N. :1955 A ge:68 Y S ex:Male Date:09/30/2023 Address:[address] [place] [address] Subjective: * Chief Complaints: * * Medical History: Objective: * Vitals: Assessment: * Assessment: 1. C hronic kidney disease, stage 3 unspecified - N18.30 (Primary) 2 . E margoth, unspecified - R60.9 3 . E ssential (primary) hypertension - I10 ?4. H eart failure, unspecified - I50.9 5 . H yperlipidemia, unspecified - E78.5 6 . P roteinuria, unspecified - R80.9 7 . R enal osteodystrophy - N25.0 Plan: * Treatment: * Billing Information: * Visit Code: 60273 Office Visit, Est Pt., Level 4. * Procedure Codes: * Electronic signature of Usha Garza MD on 08/31/2024 at 12:57 AM CDT Sign off status: Pending * Provider: Noman HILLIARD MD, F.A.C.P, F.A.S.N. Date: 09/30/2023 Generated for Printing/Faxing/eTransmitting on: 0 08/31/2024 12:57 AM CDT
--- OUTSIDE RECORDS SUMMARY | 2024-08-31 00:58 | XMS_ITS ---
Author Organization [facility] Address [address] [facility] [address] [facility] [address] [place] [address] Care Team Providers Care Computer Systems Technology Instructor Name Role Phone Oren Garza Unavailable [phone] Problems Problem Type SNOMED Code ICD Code Onset Dates Problem Status W/U Status Risk Notes Problem Chronic kidney disease stage 3 (disorder) (839049943) Chronic kidney disease, stage 3 unspecified (N18.30) Active confirmed Problem Essential hypertension (82724067) Essential (primary) hypertension (I10) Active confirmed Problem Anxiety disorder (951224063) Anxiety disorder, unspecified (F41.9) Active confirmed Problem Chronic fatigue syndrome (disorder) (63485637) Chronic fatigue, unspecified (R53.82) Active confirmed Problem Heart failure (74818286) Heart failure, unspecified (I50.9) Active confirmed Problem Major depression, single episode (22827010) Major depressive disorder, single episode, unspecified (F32.9) Active confirmed Encounters Encounter Location Date Provider Diagnosis [place] [facility] [address] [facility] [address] [place] [address] 07/01/2023 Oren Garza Chronic kidney disease, stage 3 unspecified N18.30 ; Essential (primary) hypertension I10 ; Anxiety disorder, unspecified F41.9 ; Chronic fatigue, unspecified R53.82 ; Heart failure, unspecified I50.9 and Major depressive disorder, single episode, unspecified F32.9 Assessments Encounter Date Diagnosis (ICD Code) Assessment Notes Treatment Notes Treatment Clinical Notes Section Notes 07/01/2023 Chronic kidney disease, stage 3 unspecified (ICD-10 - N18.30) 07/01/2023 Essential (primary) hypertension (ICD-10 - I10) 07/01/2023 Anxiety disorder, unspecified (ICD-10 - F41.9) 07/01/2023 Chronic fatigue, unspecified (ICD-10 - R53.82) 07/01/2023 Heart failure, unspecified (ICD-10 - I50.9) 07/01/2023 Major depressive disorder, single episode, unspecified (ICD-10 - F32.9) Plan Of Treatment No Information Progress Notes * Soy WILEYDOB: [birth year] (69 yo M)Acc No.[id number]:07/01/2023 Progress Notes Patient: Soy HERNANDEZ Provider: Noman HILLIARD MD, F.Alexey.C.P, F.A.S.N. :1955 A ge:67 Y S ex:Male Date:07/01/2023 Address:[address] [place] [address] Subjective: * Chief Complaints: * * Medical History: Objective: * Vitals: Assessment: * Assessment: 1. C hronic kidney disease, stage 3 unspecified - N18.30 2 . E ssential (primary) hypertension - I10 3 . A nxiety disorder, unspecified - F41.9 ?4. C hronic fatigue, unspecified - R53.82 5 . H eart failure, unspecified - I50.9 6 . M ajor depressive disorder, single episode, unspecified - F32.9? Plan: * Treatment: * Billing Information: * Visit Code: 63811 Office Visit, Est Pt., Level 4. * Procedure Codes: * Electronic signature of Usha Garza MD on 08/31/2024 at 12:58 AM CDT Sign off status: Pending * Provider: Noman HILLIARD MD, F.Alexey.C.P, F.A.S.N. Date: 07/01/2023 Generated for Printing/Faxing/eTransmitting on: 0 08/31/2024 12:58 AM CDT
--- OUTSIDE RECORDS SUMMARY | 2024-08-31 00:58 | XMS_ITS | Patient Health Record ---
Author Organization [facility] Address [address] [place] [address] Care Team Providers Care Material Specialist Name Role Phone Oren Garza Unavailable [phone] Reason For Referral No Information Medications Medication SIG (Take, Route, Frequency, Duration) Notes Start Date End Date Status Losartan Potassium 50 MG TAKE 1 TABLET B Y MOUTH ONCE DAILY FOR BLOOD PRESSURE for 124 Active Calcitriol 0.25 MCG TAKE 1 CAPSULE BY [place] [facility] EVERY DAY for 124 Active Problems Problem Type SNOMED Code ICD Code Onset Dates Problem Status W/U Status Risk Notes Problem Hyperlipidemia (03917310) Hyperlipidemia, unspecified (E78.5) Active confirmed Problem Major depression, single episode (00945003) Major depressive disorder, single episode, unspecified (F32.9) Active confirmed Problem Anxiety disorder (270591563) Anxiety disorder, unspecified (F41.9) Active confirmed Problem Essential hypertension (47351523) Essential (primary) hypertension (I10) Active confirmed Problem Essential hypertension (62247783) Essential (primary) hypertension (I10) Active confirmed Problem Heart failure (36901574) Heart failure, unspecified (I50.9) Active confirmed Problem Heart failure (14768907) Heart failure, unspecified (I50.9) Active confirmed Problem Renal osteodystrophy (76467563) Renal osteodystrophy (N25.0) Active confirmed Problem Chronic fatigue syndrome (disorder) (77276578) Chronic fatigue, unspecified (R53.82) Active confirmed Problem Edema (51138076) Edema, unspecified (R60.9) Active confirmed Problem Proteinuria (32602238) Proteinuria, unspecified (R80.9) Active confirmed Problem Chronic kidney disease stage 3 (disorder) (998643953) Chronic kidney disease, stage 3 unspecified (N18.30) Active confirmed Problem Chronic kidney disease stage 3 (disorder) (376078235) Chronic kidney disease, stage 3 unspecified (N18.30) Active confirmed Encounters Encounter Location Date Provider Diagnosis [facility] [address] [address] 09/30/2023 Oren Garza Chronic kidney disea se, stage 3 unspecified N18.30 ; Edema, unspecified R60.9 ; Essential (primary) hypertension I10 ; Heart failure, unspecified I50.9 ; Hyperlipidemia, unspecified E78.5 ; Proteinuria, unspecified R80.9 and Renal osteodystrophy N25.0 [facility] [address] [address] 12/02/2023 Oren Garza Assessments Encounter Date Diagnosis (ICD Code) Assessment [...]
--- OUTSIDE RECORDS SUMMARY | 2024-08-31 00:58 | XMS_ITS ---
Author Organization [facility] Address [address] [place] [address] Care Team Providers Care Manager Demand Name Role Phone Greg Oren Unavailable [phone] Encounters Encounter Location Date Provider Diagnosis [place] [facility] [address] [facility] [address] [place] [address] 12/02/2023 Oren Garza Plan Of Treatment No Information Progress Notes * Soy WILEYDOB: [birth year] (69 yo M)Acc No.[id number]:12/02/2023 Progress Notes Patient: Soy HERNANDEZ Provider: Noman HILLIARD MD, Kely.Alexey.C.P, F.A.S.N. :1955 A ge:68 Y S ex:Male Date:12/02/2023 Address:[address] [place] [address] Subjective: * Chief Complaints: * * Medical History: Objective: * Vitals: Assessment: Plan: * Treatment: * Billing Information: * Visit Code: * Procedure Codes: * Electronic signature of Usha Garza MD on 08/31/2024 at 12:58 AM CDT Sign off status: Pending * Provider: Noman HILLIARD MD, F.Alexey.C.P, F.A.S.N. Date: 12/02/2023 Generated for Printing/Faxing/eTransmitting on: 08/31/2024 12:58 AM CDT
--- NOTE | 2024-08-31 11:22 | WPDANESEPPF ---
Anes - Initial Pre Proc Eval Procedure: Operation Date: 08/31/24 13:00 Proposed Procedures p Colonoscopy - Audie Arroyo MD Date/Time: 08/31/24 11:22 Surgeon: Audie Arroyo MD Pre Op Diagnosis: Hemorrhage of anus and rectum Patient Data Age: 69 Gender: M Height: 1.85 m Weight: 90.9 kg Allergies Allergy/AdvReac Type Severity Reaction Status Date / Time menthol (From Icy Hot) Allergy Mild Rash Verified 08/31/24 11:42 methyl salicylate (From Icy Allergy Mild Rash Verified 08/31/24 11:42 Hot) Home Medications ?Medication ?Instructions ?Recorded ?Confirmed ?Type aspirin 81 mg capsule 81 mg PO DAILY 04/27/21 08/31/24 History atorvastatin 40 mg tablet 40 mg PO DAILY 04/27/21 08/31/24 History levetiracetam 500 mg tablet 500 mg PO BID 04/27/21 08/31/24 History calcitriol 0.25 mcg capsule 0.25 mcg PO DAILY 07/09/23 08/31/24 History ergocalciferol (vitamin D2) 1,250 1,250 mcg PO WEEKLY 07/09/23 08/31/24 History mcg (50,000 unit) capsule losartan 50 mg tablet 50 mg PO DAILY 07/09/23 08/31/24 History mirtazapine 15 mg tablet 45 mg PO HS 07/09/23 08/31/24 History tramadol 50 mg tablet 50 mg PO Q4H PRN pain #20 tabs 07/04/24 08/31/24 Rx carbidopa 25 mg-levodopa 100 mg 1 tablet PO TID 08/23/24 08/31/24 History tablet quetiapine 25 mg tablet 25 mg PO BID 08/23/24 08/31/24 History sennosides 8.6 mg tablet (Senokot) 17.2 mg PO DAILY PRN constipation 08/23/24 08/23/24 History Patient hx anesthesia problems: none Family hx anesthesia problems: none Results Review: All pre-operative results and documents have been reviewed as part of the pre-operative evaluation. [facility] Past Medical History Medical History (Updated 08/31/24 @ 11:22 by Omari Bull DO) Parkinson disease Disease of brain Anxiety Depression Kidney disorder Hypertension Seizures Hyperlipidemia Memory impairment CVA (cerebral vascular accident) Surgical History Surgical History History of hip replacement H/O neck surgery History of eye surgery Social History Social History Smoking packs per day: 1 Smoking cigarettes per day: 20.0 Years smoked: 45 Smoking pack-years: 45.00 Smoking status: Current every day smoker Tobacco type: cigarettes Alcohol intake: never Substance use: never Substance use type: does not use Living arrangements: with family Spiritual care concerns: No Anes - Eval Final PreProcedure Day of Procedure 08/31/24 11:22 Patient weight: overweight Heart: regular rate and rhythm Lungs: clear to auscultation Airway: Mallampati scale class II Neurological: alert and oriented Last oral intake: >/= 8 hours ASA classification: III Emergent: no Anesthetic plan: proceed Anesthesia type and monitoring: general GIVS and standard monitoring Results Review: All pre-operative results and documents have been reviewed as part of the pre-operative evaluation. Informed Consent: The patient's anesthetic plan and its attendant risks and benefits were discussed with the patient/family/POA. Questions were solicited and answers provided to the satisfaction of the patient/family/POA.
[2024-08-31 11:45] VITALS: BP 160/90; PULSE 90; RESP 18; TEMP 36.7; O2SAT 100
--- NOTE | 2024-08-31 11:51 | PM.HPGS ---
History of Present Illness History of Present Illness Consent: Risks, benefits, and alternatives have been discussed and questions answered. Patient agrees to proceed with procedure. Chief complaint: Hemorrhage of anus and rectum Narrative: Soy Wiley is a 69 year old male here for colonoscopy, last one 2021 with polyp, recently with intermittent blood in stool, h/o constipation Review of Systems Review of Systems: All systems reviewed & are unremarkable except as noted in HPI and below PMFSH Past Medical History Medical History (Updated 08/31/24 @ 11:22 by Omari Bull DO) Parkinson disease Disease of brain Anxiety Depression Kidney disorder Hypertension Seizures Hyperlipidemia Memory impairment CVA (cerebral vascular accident) Surgical History Surgical History History of hip replacement H/O neck surgery History of eye surgery Social History Social History Smoking packs per day: 1 Smoking cigarettes per day: 20.0 Years smoked: 45 Smoking pack-years: 45.00 Smoking status: Current every day smoker Tobacco type: cigarettes Alcohol intake: never Substance use: never Substance use type: does not use Living arrangements: with family Spiritual care concerns: No Meds Home Medications and Allergies Home Medications ?Medication ?Instructions ?Recorded ?Confirmed ?Type aspirin 81 mg capsule 81 mg PO DAILY 04/27/21 08/31/24 History atorvastatin 40 mg tablet 40 mg PO DAILY 04/27/21 08/31/24 History levetiracetam 500 mg tablet 500 mg PO BID 04/27/21 08/31/24 History calcitriol 0.25 mcg capsule 0.25 mcg PO DAILY 07/09/23 08/31/24 History ergocalciferol (vitamin D2) 1,250 1,250 mcg PO WEEKLY 07/09/23 08/31/24 History mcg (50,000 unit) capsule losartan 50 mg tablet 50 mg PO DAILY 07/09/23 08/31/24 History mirtazapine 15 mg tablet 45 mg PO HS 07/09/23 08/31/24 History tramadol 50 mg tablet 50 mg PO Q4H PRN pain #20 tabs 07/04/24 08/31/24 Rx carbidopa 25 mg-levodopa 100 mg 1 tablet PO TID 08/23/24 08/31/24 History tablet quetiapine 25 mg tablet 25 mg PO BID 08/23/24 08/31/24 History sennosides 8.6 mg tablet (Senokot) 17.2 mg PO DAILY PRN constipation 08/23/24 08/23/24 History Allergies Allergy/AdvReac Type Severity Reaction Status Date / Time menthol (From Icy Hot) Allergy Mild Rash Verified 08/31/24 11:42 methyl salicylate (From Icy Allergy Mild Rash Verified 08/31/24 11:42 Hot) Vital Signs Vital Signs - 24 hr 08/31/24 11:45 Temperature 98.0 F Pulse Rate 90 Respiratory Rate 18 Blood Pressure 160/90 H Pulse Oximetry 100 Oxygen Delivery Room Air Exam Const: General: comfortable and no acute distress HENMT: Face/Nose/Sinus: Normal nares present Eyes: General: appearance normal, both eyes and all related structures Neck: Neck: no JVD Resp: Auscultation: clear to auscultation bilaterally Cardio: Rate: regular rate Rhythm: regular rhythm GI: Inspection: non-distended GI Palp: Yes Soft to palpation Skin: General skin exam: normal color Neuro: General: gait normal Speech: normal speech Extrem: General: normal to inspection Psych: Mental Status: mental status grossly normal Assessment and Plan Assessment and plan (1) Rectal bleeding: Code(s): K62.5 - Hemorrhage of anus and rectum Status: Acute Assessment and Plan: colonoscopy (2) Colon polyps: Qualifiers: Colon polyp type: adenomatous Colon location: unspecified part of colon Qualified Code(s): D12.6 - Benign neoplasm of colon, unspecified Code(s): K63.5 - Polyp of colon Status: Acute (3) Constipation: Qualifiers: Constipation type: chronic idiopathic constipation Qualified Code(s): K59.04 - Chronic idiopathic constipation Code(s): K59.00 - Constipation, unspecified Status: Acute
[2024-08-31] MEDS: LACTATED RINGERS 1,000 ML 150 ML IV CONT (11:57)
[2024-08-31 12:18] VITALS: BP 134/85; PULSE 79; RESP 22; O2SAT 96
--- NOTE | 2024-08-31 12:21 | S_PTH ---
PATIENT: Soy Wiley LOC: [facility] Elliott#:[id number] AGE/SX: 69/M ROOM: RE08/31/[address]: Audie Arroyo MD : 1955 BED: DIS: 08/31/2024 SPEC #: [id number] RECD: 08/31/24 12:59 STATUS: PORFIRIO REArielle #: [id number] ADELAIDA: 08/31/24 12:[address]: Audie Arroyo DEPT: [facility] Surgical RECD BY: Jose Hyde ENTERED: 08/31/24 13:00 SP TYPE: Surgical OTHR DR: Gianluca Zavala, MYoli Tissues: A - Colon Polypectomy B - Colon Polypectomy Procedures: Hematoxylin and Eosin Stain Gross and Microscopic Level 4
[2024-08-31 12:28] VITALS: BP 138/77; PULSE 83; RESP 25; O2SAT 100
[2024-08-31 12:38] VITALS: BP 140/77; PULSE 78; RESP 20; O2SAT 100
== END 2024-08-31 12:50 | disposition home or self-care (01) ==
PROVIDERS: PCP Internal Medicine Infectious Disease; Referring Provider Nurse Practitioner Family; Visit Provider Internal Medicine Gastroenterology
PROC: 0DJD8ZZ Inspection of Lower Intestinal Tract, Via Natural or Artificial Opening Endoscopic (ICD-10-PCS; CPT 45378; principal; 2024-08-31 13:00)
DX: Z12.11 Encounter for screening for malignant neoplasm of colon (principal); D12.0 Benign neoplasm of cecum; K63.5 Polyp of colon; K57.30 Diverticulosis of large intestine without perforation or abscess without bleeding; Q27.33 Arteriovenous malformation of digestive system vessel; K64.8 Other hemorrhoids; K59.04 Chronic idiopathic constipation; F17.210 Nicotine dependence, cigarettes, uncomplicated
CPT/HCPCS: 45388; 45385; 88305; J2704; J7120

== ENCOUNTER 2024-09-06 18:38 | Emergency (ER) | payer MEDICARE, SELFPAY ==
--- NOTE | ~2024-09-06 | CT_ITS ---
CT cervical spine wo con Ordering provider: Kiet Roa History: . fall . Comparison: None. Technique: CT of the cervical spine was performed without contrast. Sagittal and coronal reformatted images were also obtained and reviewed. Automated exposure control and iterative reconstruction colby hnique were employed. The dose-length product was 428.41 mGy-cm. FINDINGS: VERTEBRAE: Minimal anterolisthesis at the level of T1. Otherwise, No subluxation or acute fracture. T he occipital condyles are intact. Postoperative changes at the level of C4-C5. DISC SPACES: Narrowing of the disc C3-C4, C4-C5, C5-C6 and C6-C7. Multilevel facet joint disease. Mul tilevel uncovertebral joint osteoarthritic changes. Multilevel intervertebral foraminal narrowing. PARASPINOUS SOFT TISSUES: Normal. IMPRESSION: No acute osseous abnormality cervical spine. Multilevel degenerative disc disease. Reviewed, dictated and finalized at location A.
--- NOTE | ~2024-09-06 | CT_ITS ---
CT brain wo con Ordering provider: Kiet Roa MD History: 69 years Male with . fall . Comparison: None. Technique: CT of the head without contrast. Radiation reduction technique utilized.The dose-length pr oduct was 605.33 mGy-cm. FINDINGS: BRAIN PARENCHYMA AND CSF SPACES: Moderate leukoaraiosis and diffuse cortical atrophy. Moderate athero matous disease. Old infarct in the right frontal and left occipital lobe is noted. No midline shift, mass effect or hemorrhage. The brain parenchyma and CSF spaces are otherwise normal. VISUALIZED PARANASAL SINUSES: Bilateral ethmoid sinus disease. Bilateral frontal sinus disease. MASTOIDS: Well aerated. BONES: The bones appear intact. SOFT TISSUES: Visualized nasopharynx is normal. Superficial soft tissues are normal. IMPRESSION: No acute intracranial findings. Reviewed, dictated and finalized at location A.
--- NOTE | ~2024-09-06 | XR_ITS ---
XR elbow LT min 3V Ordering provider: Kiet Roa History: . fall . Comparison: None. FINDINGS: BONES: Comminuted fracture involving the junction of the olecranon and coronoid of the ulna. JOINT SPACES: Normal. SOFT TISSUES: Soft tissue swelling seen anteriorly. No definite joint effusion. IMPRESSION: Fracture proximal ulna. Reviewed, dictated and finalized at location A. IMPRESSION: Fracture proximal ulna.
--- OUTSIDE RECORDS SUMMARY | 2024-09-06 18:40 | XMS_ITS | Patient Health Record ---
Author Organization [facility] Office Address [address] [place] [address] Care Team Providers Care Associate Professor Of Biology Name Role Phone Oren Garza Unavailable [phone] Reason For Referral No Information Medications Medication SIG (Take, Route, Frequency, Duration) Notes Start Date End Date Status Losartan Potassium 50 MG TAKE 1 TABLET B Y MOUTH ONCE DAILY FOR BLOOD PRESSURE for 124 Active Calcitriol 0.25 MCG TAKE 1 CAPSULE BY MO [facility] EVERY DAY for 124 Active Problems Problem Type SNOMED Code ICD Code Onset Dates Problem Status W/U Status Risk Notes Problem Hyperlipidemia (42979526) Hyperlipidemia, unspecified (E78.5) Active confirmed Problem Major depression, single episode (96543213) Major depressive disorder, single episode, unspecified (F32.9) Active confirmed Problem Anxiety disorder (434953934) Anxiety disorder, unspecified (F41.9) Active confirmed Problem Essential hypertension (64098740) Essential (primary) hypertension (I10) Active confirmed Problem Essential hypertension (07228614) Essential (primary) hypertension (I10) Active confirmed Problem Heart failure (58049229) Heart failure, unspecified (I50.9) Active confirmed Problem Heart failure (87326632) Heart failure, unspecified (I50.9) Active confirmed Problem Renal osteodystrophy (36953607) Renal osteodystrophy (N25.0) Active confirmed Problem Chronic fatigue syndrome (disorder) (51924011) Chronic fatigue, unspecified (R53.82) Active confirmed Problem Edema (33228402) Edema, unspecified (R60.9) Active confirmed Problem Proteinuria (29208858) Proteinuria, unspecified (R80.9) Active confirmed Problem Chronic kidney disease stage 3 (disorder) (150685272) Chronic kidney disease, stage 3 unspecified (N18.30) Active confirmed Problem Chronic kidney disease stage 3 (disorder) (268628293) Chronic kidney disease, stage 3 unspecified (N18.30) Active confirmed Encounters Encounter Location Date Provider Diagnosis [facility] [address] [address] 09/30/2023 Oren Garza Chronic kidney disea se, stage 3 unspecified N18.30 ; Edema, unspecified R60.9 ; Essential (primary) hypertension I10 ; Heart failure, unspecified I50.9 ; Hyperlipidemia, unspecified E78.5 ; Proteinuria, unspecified R80.9 and Renal osteodystrophy N25.0 [facility] [address] [address] 12/02/2023 Oren Garza Assessments Encounter Date Diagnosis [...]
--- OUTSIDE RECORDS SUMMARY | 2024-09-06 18:40 | XMS_ITS ---
Author Organization [facility] Office Address [address] [facility] [address] [facility] [address] [place] [address] Care Team Providers Care Flask Fitter Name Role Phone Oren Garza Unavailable [phone] Problems Problem Type SNOMED Code ICD Code Onset Dates Problem Status W/U Status Risk Notes Problem Chronic kidney disease stage 3 (disorder) (042318361) Chronic kidney disease, stage 3 unspecified (N18.30) Active confirmed Problem Essential hypertension (51821848) Essential (primary) hypertension (I10) Active confirmed Problem Anxiety disorder (336732365) Anxiety disorder, unspecified (F41.9) Active confirmed Problem Chronic fatigue syndrome (disorder) (02640121) Chronic fatigue, unspecified (R53.82) Active confirmed Problem Heart failure (23099155) Heart failure, unspecified (I50.9) Active confirmed Problem Major depression, single episode (74433895) Major depressive disorder, single episode, unspecified (F32.9) Active confirmed Encounters Encounter Location Date Provider Diagnosis [place] [facility] [address] [facility] [address] [place] [address] 07/01/2023 Oren Garza Chronic kidney disease, stage [...] * Soy WILEYDOB: [birth year] (69 yo M)Acc No.[id number]:07/01/2023 Progress Notes Patient: Soy HERNANDEZ Provider: Noman HILLIARD MD, F.Alexey.C.P, F.A.S.N. :1955 A ge:67 Y S ex:Male Date:07/01/2023 Address:[address] [place] [address] Subjective: * Chief Complaints: * * Medical [...] Treatment: * Billing Information: * Visit Code: 76852 Office Visit, Est Pt., Level 4. * Procedure Codes: * Electronic signature of Usha Garza MD on 09/06/2024 at 06:40 PM CDT Sign off status: Pending * Provider: Noman HILLIARD MD, F.Alexey.C.P, F.A.S.N. Date: 07/01/2023 Generated for Printing/Faxing/eTransmitting on: 0 09/06/2024 06:40 PM CDT
--- OUTSIDE RECORDS SUMMARY | 2024-09-06 18:40 | XMS_ITS ---
Author Organization [facility] Office Address [address] [place] [address] Care Team Providers Care Derrick Builder Name Role Phone Oren Garza Unavailable [phone] Encounters Encounter Location Date Provider Diagnosis [place] [facility] [address] [facility] [address] [place] [address] 09/30/2023 Oren Garza Chronic kidney disea se, [...] * Soy WILEYDOB: [birth year] (69 yo M)Acc No.[id number]:09/30/2023 Progress Notes Patient: Soy HERNANDEZ Provider: Noman HILLIARD MD, F.A.C.P, F.A.S.N. :1955 A ge:68 Y S ex:Male Date:09/30/2023 Address:[address] [place] [address] Subjective: * Chief Complaints: * * Medical [...] Treatment: * Billing Information: * Visit Code: 17020 Office Visit, Est Pt., Level 4. * Procedure Codes: * Electronic signature of Usha Garza MD on 09/06/2024 at 06:40 PM CDT Sign off status: Pending * Provider: Noman HILLIARD MD, F.A.C.P, F.A.S.N. Date: 09/30/2023 Generated for Printing/Faxing/eTransmitting on: 09/06/2024 06:40 PM CDT
--- OUTSIDE RECORDS SUMMARY | 2024-09-06 18:41 | XMS_ITS ---
Author Organization [facility] Office Address [address] [place] [address] Care Team Providers Care Tool Hardener Name Role Phone Greg Oren Unavailable [phone] Encounters Encounter Location Date Provider Diagnosis [place] [facility] [address] [facility] [address] [place] [address] 12/02/2023 Oren Garza Plan Of Treatment No Information Progress Notes * Soy WILEYDOB: [birth year] (69 yo M)Acc No.[id number]:12/02/2023 Progress Notes Patient: Soy HERNANDEZ Provider: Noman HILLIARD MD, Kely.Alexey.C.P, F.A.S.N. :1955 A ge:68 Y S ex:Male Date:12/02/2023 Address:[address] [place] [address] Subjective: * Chief Complaints: * * Medical History: Objective: * Vitals: Assessment: Plan: * Treatment: * Billing Information: * Visit Code: * Procedure Codes: * Electronic signature of Usha Garza MD on 09/06/2024 at 06:40 PM CDT Sign off status: Pending * Provider: Noman HILLIARD MD, F.Alexey.C.P, F.A.S.N. Date: 12/02/2023 Generated for Printing/Faxing/eTransmitting on: 09/06/2024 06:40 PM CDT
[2024-09-06] MEDS: HYDROcodone/acetaminophen (*CRX) 5-325 MG TABLET 1 TAB PO (19:43)
--- NOTE | 2024-09-06 19:58 | ED_ITS ---
HPI - General Adult General Chief complaint: Fall Stated complaint: fall Time Seen by Provider: 09/06/24 19:00 History of Present Illness HPI narrative: 69-year-old male presenting to the emergency department for evaluation after having a ground level fall. Patient did injure his left elbow this the primary source of injury. Patient also states he did strike his head but denies any loss conscious is the denies any head or neck pain. Related Data Home Medications ?Medication ?Instructions ?Recorded ?Confirmed ?Last Taken ?Type aspirin 81 mg capsule 81 mg PO DAILY 04/27/21 08/31/24 08/30/24 History atorvastatin 40 mg tablet 40 mg PO DAILY 04/27/21 08/31/24 08/30/24 History levetiracetam 500 mg tablet 500 mg PO BID 04/27/21 08/31/24 08/30/24 History calcitriol 0.25 mcg capsule 0.25 mcg PO DAILY 07/09/23 08/31/24 08/30/24 History ergocalciferol (vitamin D2) 1,250 1,250 mcg PO WEEKLY 07/09/23 08/31/24 08/30/24 History mcg (50,000 unit) capsule losartan 50 mg tablet 50 mg PO DAILY 07/09/23 08/31/24 08/30/24 History mirtazapine 15 mg tablet 45 mg PO HS 07/09/23 08/31/24 08/30/24 History carbidopa 25 mg-levodopa 100 mg 1 tablet PO TID 08/23/24 08/31/24 08/30/24 History tablet quetiapine 25 mg tablet 25 mg PO BID 08/23/24 08/31/24 08/30/24 History sennosides 8.6 mg tablet (Senokot) 17.2 mg PO DAILY PRN constipation 08/23/24 08/23/24 Unknown History Allergies Allergy/AdvReac Type Severity Reaction Status Date / Time menthol (From Icy Hot) Allergy Mild Rash Verified 08/31/24 11:42 methyl salicylate (From Icy Allergy Mild Rash Verified 08/31/24 11:42 Hot) Review of Systems Review of Systems: All systems reviewed & are unremarkable except as noted in HPI and below PMFSH Past Medical History Medical History (Updated 09/07/24 @ 00:00 by Background Daemmanule) Parkinson disease Disease of brain Anxiety Depression Kidney disorder Hypertension Seizures Hyperlipidemia Memory impairment CVA (cerebral vascular accident) Surgical History Surgical History History of hip replacement H/O neck surgery History of eye surgery Social History Social History Smoking packs per day: 1 Smoking cigarettes per day: 20.0 Years smoked: 45 Smoking pack-years: 45.00 Smoking status: Current every day smoker Tobacco type: cigarettes Alcohol intake: never Substance use: never Substance use type: does not use Living arrangements: with family Spiritual care concerns: No Exam Narrative: APPEARANCE: Well appearing, no pain, no distress, well-nourished. HEAD: normocephalic, atraumatic. EYES: PERRLA/EOMI, conjunctivae clear. NOSE: Normal no drainage EARS:TMS clear with good light reflex. THROAT: Pharynx clear, no exudate. NECK: Supple. No adenopathy, no masses. RESPIRATORY: Airway patent, respirations nonlabored. Clear to auscultation bilaterally, no rales, rhonchi, wheezing. CARDIOVASCULAR: Regular rate and rhythm without murmurs rubs or gallops. ABDOMINAL: Soft, nontender, nondistended, normal bowel sounds MUSCULOSKELETAL: Tenderness to left elbow with limited range of motion NEURO: Alert. Cranial nerves II through XII intact. Good gait. Good coordination SKIN: Warm, dry. Normal Color Course Vital Signs Vital signs: Vital Signs Pulse Rate 83 09/06/24 21:07 Respiratory Rate 17 09/06/24 21:07 Blood Pressure 142/79 H 09/06/24 21:07 Pulse Oximetry 98 09/06/24 21:07 Pulse Rate 83 09/06/24 21:08 Respiratory Rate 17 09/06/24 21:08 Blood Pressure 142/79 H 09/06/24 21:08 Pulse Oximetry 98 09/06/24 21:08 Medical Decision Making MDM Narrative Medical decision making narrative: 69-year-old male presented to the emergency department for evaluation for left elbow pain after having a mechanical fall. CT head neck were negative. Elbow x-ray does show evidence of a liquor on/proximal ulnar fracture. Patient was provided a sling for comfort provided follow-up with Orthopedics. All questions concerns were addressed. Differential Diagnosis Differential Diagnosis: Subdural hematoma, subarachnoid hemorrhage, cervical spine fracture, elbow fracture, elbow contusion Vital Signs Vital Signs: Vital Signs Pulse Rate 83 09/06/24 21:07 Respiratory Rate 17 09/06/24 21:07 Blood Pressure 142/79 H 09/06/24 21:07 Pulse Oximetry 98 09/06/24 21:07 Pulse Rate 83 09/06/24 21:08 Respiratory Rate 17 09/06/24 21:08 Blood Pressure 142/79 H 09/06/24 21:08 Pulse Oximetry 98 09/06/24 21:08 Imaging Data Radiologist's impression: Impressions Head CT 09/06/24 19:16 IMPRESSION: No acute intracranial findings. Elbow X-Ray 09/06/24 20:15 IMPRESSION: Fracture proximal ulna. Cervical Spine CT 09/06/24 20:25 IMPRESSION: No acute osseous abnormality cervical spine. Multilevel degenerative disc disease. Discharge Plan Discharge Clinical Impression: Fracture of proximal end of left ulna Patient Disposition: Home Condition: Stable Instructions: Antibiotic Form, Elbow Fracture (DC), How to Use a Sling (ED) Additional Instructions: Sling for comfort. Have close follow-up with Orthopedics. Patient Language: Brazilian Prescriptions: No Action carbidopa-levodopa 25-100 mg tablet 1 tablet PO TID quetiapine 25 mg tablet 25 mg PO BID sennosides [Senokot] 8.6 mg tablet 17.2 mg PO DAILY PRN (Reason: constipation) atorvastatin 40 mg tablet 40 mg PO DAILY levetiracetam 500 mg tablet 500 mg PO BID aspirin 81 mg Capsule 81 mg PO DAILY losartan 50 mg tablet 50 mg PO DAILY mirtazapine 15 mg tablet 45 mg PO HS ergocalciferol (vitamin D2) 1,250 mcg (50,000 unit) capsule 1,250 mcg PO WEEKLY calcitriol 0.25 mcg capsule 0.25 mcg PO DAILY tramadol 50 mg tablet 50 mg PO Q4H PRN (Reason: pain) Qty: 20 0RF Follow-up/Referrals: Sally,Carlos Eduardo Hough. [Primary Care Provider] - Js Dong MD [Physician] -
[2024-09-06 21:07] VITALS: BP 142/79; PULSE 83; RESP 17; O2SAT 98
[2024-09-06 21:08] VITALS: BP 142/79; PULSE 83; RESP 17; O2SAT 98
== END 2024-09-06 21:10 | disposition home or self-care (01) ==
PROVIDERS: Emergency Provider Emergency Medicine; PCP Internal Medicine Infectious Disease
DX: S52.091A Other fracture of upper end of right ulna, initial encounter for closed fracture (principal); G20.A1 Parkinson's disease without dyskinesia, without mention of fluctuations; I10 Essential (primary) hypertension; E78.5 Hyperlipidemia, unspecified; F32.A Depression, unspecified; F41.9 Anxiety disorder, unspecified; F17.210 Nicotine dependence, cigarettes, uncomplicated; Z86.73 Personal history of transient ischemic attack (TIA), and cerebral infarction without residual deficits; Z96.649 Presence of unspecified artificial hip joint; M50.31 Other cervical disc degeneration, high cervical region; Z79.899 Other long term (current) drug therapy; Z79.82 Long term (current) use of aspirin; W18.30XA Fall on same level, unspecified, initial encounter
CPT/HCPCS: 70450; 72125; 73080; 99284; A4565; A9270

== ENCOUNTER 2024-10-25 15:17 | Emergency (ER) | payer MEDICARE, SELFPAY ==
[2024-10-25 15:22] VITALS: BP 147/93; PULSE 92; RESP 18; TEMP 36.8; O2SAT 98
--- NOTE | 2024-10-25 16:14 | ED_ITS ---
HPI - General Adult General Chief complaint: Unspecified Stated complaint: Fall-elevated BP-no injuries Time Seen by Provider: 10/25/24 16:14 Focused HPI: The is a 69 year old male that presents to the ER after a fall today. Reports he tripped in his driveway and he fell. His family member was right there and helped lower him to the ground. He did not hit his head or lose consciousness. Reports no injuries after the fall. GENERAL: Well-appearing, well-nourished, and in no acute distress. HEAD: Normocephalic, atraumatic. CHEST: Clear to auscultation. ?No respiratory distress. HEART: Regular rate and rhythm.? NEURO: ?Alert and oriented x3. Patient screened in triage and initial orders placed.? ?Additional care and disposition to be based upon?diagnostic testing and treatment. Related Data Home Medications ?Medication ?Instructions ?Recorded ?Confirmed ?Last Taken ?Type aspirin 81 mg capsule 81 mg PO DAILY 04/27/21 08/31/24 08/30/24 History atorvastatin 40 mg tablet 40 mg PO DAILY 04/27/21 08/31/24 08/30/24 History levetiracetam 500 mg tablet 500 mg PO BID 04/27/21 08/31/24 08/30/24 History calcitriol 0.25 mcg capsule 0.25 mcg PO DAILY 07/09/23 08/31/24 08/30/24 History ergocalciferol (vitamin D2) 1,250 1,250 mcg PO WEEKLY 07/09/23 08/31/24 08/30/24 History mcg (50,000 unit) capsule losartan 50 mg tablet 50 mg PO DAILY 07/09/23 08/31/24 08/30/24 History mirtazapine 15 mg tablet 45 mg PO HS 07/09/23 08/31/24 08/30/24 History carbidopa 25 mg-levodopa 100 mg 1 tablet PO TID 08/23/24 08/31/24 08/30/24 History tablet quetiapine 25 mg tablet 25 mg PO BID 08/23/24 08/31/24 08/30/24 History sennosides 8.6 mg tablet (Senokot) 17.2 mg PO DAILY PRN constipation 08/23/24 08/23/24 Unknown History Allergies Allergy/AdvReac Type Severity Reaction Status Date / Time menthol (From [employer] Hot) Allergy Mild Rash Verified 10/25/24 15:19 methyl salicylate (From Icy Allergy Mild Rash Verified 10/25/24 15:19 Hot) Review of Systems Review of Systems: All systems reviewed & are unremarkable except as noted in HPI and below PMFSH Past Medical History Medical History (Updated 10/25/24 @ 16:18 by Maryanne Brower PA-C) Parkinson disease Disease of brain Anxiety Depression Kidney disorder Hypertension Seizures Hyperlipidemia Memory impairment CVA (cerebral vascular accident) Surgical History Surgical History History of hip replacement H/O neck surgery History of eye surgery Social History Social History Smoking packs per day: 1 Smoking cigarettes per day: 20.0 Years smoked: 45 Smoking pack-years: 45.00 Smoking status: Current every day smoker Tobacco type: cigarettes Alcohol intake: never Substance use: never Substance use type: does not use Living arrangements: with family Spiritual care concerns: No Exam Narrative: GENERAL: Well-appearing, well-nourished, and in no acute distress. HEAD: Normocephalic, atraumatic. EYES: EOMI. ENT: Nares clear, no rhinorrhea or epistaxis. Mucous membranes moist. Oropharynx without tonsillar hypertrophy exudate or other lesions. CHEST: Clear to auscultation. No respiratory distress. No wheezes rales or rhonchi HEART: Regular rate and rhythm. No murmur heard. Normal peripheral pulses. EXTREMITIES: Normal range of motion. No edema or obvious deformity. SKIN: Warm, dry, no rash. NEURO: No focal deficits. Alert and oriented x3. PSYCH: Normal mood and affect Course Vital Signs Vital signs: Vital Signs Temperature 98.3 F 10/25/24 15:22 Pulse Rate 92 10/25/24 15:22 Respiratory Rate 18 10/25/24 15:22 Blood Pressure 147/93 H 10/25/24 15:22 Pulse Oximetry 98 10/25/24 15:22 Oxygen Delivery Room Air 10/25/24 15:22 Temperature 98.3 F 10/25/24 15:22 Pulse Rate 92 10/25/24 15:22 Respiratory Rate 18 10/25/24 15:22 Blood Pressure 147/93 H 10/25/24 15:22 Pulse Oximetry 98 10/25/24 15:22 Oxygen Delivery Room Air 10/25/24 15:22 Medical Decision Making MDM Narrative Medical decision making narrative: Patient presents to the ER after a fall today with no reported injuries. Normal exam. He does not wish to have any further evaluation. Discharged with follow- up with PCP Vital Signs Vital Signs: Vital Signs Temperature 98.3 F 10/25/24 15:22 Pulse Rate 92 10/25/24 15:22 Respiratory Rate 18 10/25/24 15:22 Blood Pressure 147/93 H 10/25/24 15:22 Pulse Oximetry 98 10/25/24 15:22 Oxygen Delivery Room Air 10/25/24 15:22 Temperature 98.3 F 10/25/24 15:22 Pulse Rate 92 10/25/24 15:22 Respiratory Rate 18 10/25/24 15:22 Blood Pressure 147/93 H 10/25/24 15:22 Pulse Oximetry 98 10/25/24 15:22 Oxygen Delivery Room Air 10/25/24 15:22 Critical Care Time Critical Care Time Critical Care Time: No Discharge Plan Discharge Clinical Impression: Accident due to mechanical fall without injury Qualifiers: Encounter type: initial encounter Qualified Code(s): W19.XXXA - Unspecified fall, initial encounter Patient Disposition: Home Condition: Stable Instructions: Fall Prevention (ED) Additional Instructions: Return to the emergency department if you experience fever, chest pain, shortness of breath, abdominal pain with nausea and vomiting, weakness, numbness, or any other symptoms that are concerning to you. Follow up with your primary care doctor Patient Language: Nicaraguan Prescriptions: No Action carbidopa-levodopa 25-100 mg tablet 1 tablet PO TID quetiapine 25 mg tablet 25 mg PO BID sennosides [Senokot] 8.6 mg tablet 17.2 mg PO DAILY PRN (Reason: constipation) atorvastatin 40 mg tablet 40 mg PO DAILY levetiracetam 500 mg tablet 500 mg PO BID aspirin 81 mg Capsule 81 mg PO DAILY losartan 50 mg tablet 50 mg PO DAILY mirtazapine 15 mg tablet 45 mg PO HS ergocalciferol (vitamin D2) 1,250 mcg (50,000 unit) capsule 1,250 mcg PO WEEKLY calcitriol 0.25 mcg capsule 0.25 mcg PO DAILY tramadol 50 mg tablet 50 mg PO Q4H PRN (Reason: pain) Qty: 20 0RF Follow-up/Referrals: Sally,Carlos Eduardo Hough. [Primary Care Provider] -
== END 2024-10-25 16:29 | disposition home or self-care (01) ==
PROVIDERS: Emergency Provider Physician Assistant; PCP Internal Medicine Infectious Disease
DX: Z04.3 Encounter for examination and observation following other accident (principal); G20.A1 Parkinson's disease without dyskinesia, without mention of fluctuations; I10 Essential (primary) hypertension; E78.5 Hyperlipidemia, unspecified; N28.9 Disorder of kidney and ureter, unspecified; F41.9 Anxiety disorder, unspecified; F32.A Depression, unspecified; F17.210 Nicotine dependence, cigarettes, uncomplicated; Z96.649 Presence of unspecified artificial hip joint; Z86.73 Personal history of transient ischemic attack (TIA), and cerebral infarction without residual deficits; Z79.82 Long term (current) use of aspirin; Z79.899 Other long term (current) drug therapy; W01.0XXA Fall on same level from slipping, tripping and stumbling without subsequent striking against object, initial encounter
CPT/HCPCS: 99281

== ENCOUNTER 2025-02-01 19:39 | Emergency (ER) | payer MEDICARE, SELFPAY ==
--- NOTE | ~2025-02-01 | CT_ITS ---
CT FACIAL BONES and cervical spine WITHOUT CONTRAST INDICATION: Fall, laceration to left eyebrow COMPARISON: None. TECHNIQUE: Axial 2.5 mm images of the maxillofacial bones/sinuses and cervical spine were obtained without contrast. Additional axial, coronal and sagittal reformatted images were rendered. FINDINGS: No facial bone fracture is identified. There are opacification of the ethmoid's. There is mucosal thickening of the right sphenoid and frontal sinuses. The nasal septum is midline. There is soft tissue swelling over the left periorbital region. On reformatted images, there is no orbital floor fracture. The temporomandibular joint alignment is maintained. The cervical vertebrae are in alignment. No fracture or paravertebral soft tissue swelling is evident. Anterior cervical disc fusion C5-C6. There are disc bulging with uncovertebral hypertrophy at C3-C4 and C5-C6 and C6- C7. There are resulting in moderate neural foraminal narrowing. No severe central canal stenosis. The visualized aspect of the upper lungs are clear. IMPRESSION: No acute fracture or subluxation. Moderate degenerative changes. All CT scans at this facility are performed using low dose modulation techniques as appropriate to perform exam including the following: automated exposure control; use of iterative reconstruction technique; adjustment of the mA and/or kV according to patient size (this includes techniques or standardized protocols for targeted exams where dose is matched to indication/reason for exam). Reviewed, dictated and finalized at location S. IMPRESSION: No acute fracture or subluxation. Moderate degenerative changes. All CT scans at this facility are performed using low dose modulation techniqu es as appropriate to perform exam including the following: automated exposure c ontrol; use of iterative reconstruction technique; adjustment of the mA and/or kV according to patient size (this includes techniques or standardized protocol s for targeted exams where dose is matched to indication/reason for exam).
--- NOTE | ~2025-02-01 | CT_ITS ---
CT brain wo con HISTORY:fall, hi, hx cva/corticobasal degeneration COMPARISON: None. TECHNIQUE: Axial images were obtained of the head without intravenous contrast. FINDINGS: No acute intracranial hemorrhage, mass effect or midline shift. No extra-axial fluid collections. There are encephalomalacia changes within the right frontal lobe and bilateral right middle lobe reflective of remote infarct. Chronic white matter microangiopathic changes are present in theperiventricular white matter.There are opacifications of the ethmoids and right sphenoid sinus. Remaining visualized paranasal sinuses are clear. Mastoid air cells are clear. IMPRESSION: No acute intracranial hemorrhage or extra axial fluid collections. Encephalomalacia changes within the right frontal and bilateral parietal lobe reflective of remote infarct. Paranasal sinus disease. All CT scans at this facility are performed using low dose modulation techniques as appropriate to perform exam including the following: automated exposure control; use of iterative reconstruction technique; adjustment of the mA and/or kV according to patient size (this includes techniques or standardized protocols for targeted exams where dose is matched to indication/reason for exam). Reviewed, dictated and finalized at location S. IMPRESSION: No acute intracranial hemorrhage or extra axial fluid collections. Encephalomalacia changes within the right frontal and bilateral parietal lobe r eflective of remote infarct. Paranasal sinus disease. All CT scans at this facility are performed using low dose modulation techniqu es as appropriate to perform exam including the following: automated exposure c ontrol; use of iterative reconstruction technique; adjustment of the mA and/or kV according to patient size (this includes techniques or standardized protocol s for targeted exams where dose is matched to indication/reason for exam).
--- NOTE | ~2025-02-01 | XR_ITS ---
XR hand LT min 3V INDICATION: fall, pain . COMPARISON: None. FINDINGS: Frontal, lateral, and oblique views of the left hand demonstrate acute displaced dorsal apex angulated fracture of the neck of the fourth and fifth metacarpal. There is no dislocation. Degenerative changes with joint space narrowing and marginal erosion is seen. There are periarticular osteopenia. Findings suggestive of rheumatoid arthritis. IMPRESSION: Acute displaced dorsal apex angulated fracture of the neck of the fourth and fifth metacarpal. Reviewed, dictated and finalized at location S. IMPRESSION: Acute displaced dorsal apex angulated fracture of the neck of the fourth and f ifth metacarpal.
[2025-02-01 19:43] VITALS: BP 143/79; PULSE 96; RESP 16; TEMP 37; O2SAT 100
[2025-02-01 20:59] VITALS: BP 139/81; PULSE 79; RESP 18; O2SAT 99
[2025-02-01 21:15] VITALS: BP 147/80; PULSE 75; RESP 18; O2SAT 98
--- NOTE | 2025-02-01 21:20 | ED.FALL ---
HPI - Fall General Chief Complaint: Fall Stated Complaint: fall eye brow / nose abrasion, no thinners Time Seen by Provider: 02/01/25 21:00 Source: patient and family Mode of arrival: ambulatory Limitations: dementia History of Present Illness HPI Narrative: Patient is a 69 y/o male, with PMH of CVA w/ L sided hemiplegia, corticobasal degeneration, parkinson's disease, seizure disorder, who presents to the ED with c/o fall. at bedside assisted in providing information. Patient reports he tripped and fell prior to arrival. Hit his head, sustained laceration to his L eyebrow, small abrasion to left-sided nose. Denied LOC. Also complains of pain to his left hand. Tetanus status unknown. Patient denies any neck or back pain, numbness, dizziness, lightheadedness, vision changes, pain with eye movements. Related Data Home Medications ?Medication ?Instructions ?Recorded ?Confirmed ?Last Taken ?Type aspirin 81 mg capsule 81 mg PO DAILY 04/27/21 08/31/24 08/30/24 History atorvastatin 40 mg tablet 40 mg PO DAILY 04/27/21 08/31/24 08/30/24 History levetiracetam 500 mg tablet 500 mg PO BID 04/27/21 08/31/24 08/30/24 History calcitriol 0.25 mcg capsule 0.25 mcg PO DAILY 07/09/23 08/31/24 08/30/24 History ergocalciferol (vitamin D2) 1,250 1,250 mcg PO WEEKLY 07/09/23 08/31/24 08/30/24 History mcg (50,000 unit) capsule losartan 50 mg tablet 50 mg PO DAILY 07/09/23 08/31/24 08/30/24 History mirtazapine 15 mg tablet 45 mg PO HS 07/09/23 08/31/24 08/30/24 History carbidopa 25 mg-levodopa 100 mg 1 tablet PO TID 08/23/24 08/31/24 08/30/24 History tablet quetiapine 25 mg tablet 25 mg PO BID 08/23/24 08/31/24 08/30/24 History sennosides 8.6 mg tablet (Senokot) 17.2 mg PO DAILY PRN constipation 08/23/24 08/23/24 Unknown History Allergies Allergy/AdvReac Type Severity Reaction Status Date / Time menthol (From Icy Hot) Allergy Mild Rash Verified 02/01/25 19:50 methyl salicylate (From Icy Allergy Mild Rash Verified 02/01/25 19:50 Hot) Review of Systems Review of Systems: All systems reviewed & are unremarkable except as noted in HPI. All systems reviewed & are unremarkable except as noted in HPI and below PMFSH Past Medical History Medical History Parkinson disease Disease of brain Anxiety Depression Kidney disorder Hypertension Seizures Hyperlipidemia Memory impairment CVA (cerebral vascular accident) Surgical History Surgical History History of hip replacement H/O neck surgery History of eye surgery Social History Social History Smoking packs per day: 1 Smoking cigarettes per day: 20.0 Years smoked: 45 Smoking pack-years: 45.00 Smoking status: Current every day smoker Tobacco type: cigarettes Alcohol intake: never Substance use: never Substance use type: does not use Living arrangements: with family Spiritual care concerns: No Exam Narrative: GENERAL: Elderly, frail, non-toxic, in no acute distress. HEAD: Normocephalic. Contusion/hematoma to L eyebrow with linear laceration through eyebrow, no active bleeding EYES: PERRL/EOMI, conjunctiva clear. No nystagmus. No pain with eye movements. Some swelling and bruising to left upper eyelid/superior periorbital region NECK: No midline cervical spinal tenderness RESPIRATORY: Airway patent, respirations nonlabored. Clear to auscultation bilaterally, no rales, rhonchi, wheezing. CARDIOVASCULAR: Regular rate and rhythm without murmurs, rubs, or gallops. MUSCULOSKELETAL: No gross deformities. Mild swelling/bruising/TTP to L dorsal hand, 4th/5th fingers. Contracture to L hand. SKIN: Warm, dry, normal color. NEURO: Alert, answers most questions. Speech clear. No ataxic movements. Chronic left-sided hemiplegia PSYCHIATRIC: Appropriate mood and affect. Normal interaction. Course Vital Signs Vital signs: Vital Signs Temperature 98.6 F 02/01/25 19:43 Pulse Rate 96 02/01/25 19:43 Respiratory Rate 16 02/01/25 19:43 Blood Pressure 143/79 H 02/01/25 19:43 Pulse Oximetry 100 02/01/25 19:43 Oxygen Delivery Room Air 02/01/25 19:43 Temperature 98.6 F 02/01/25 19:43 Pulse Rate 75 02/01/25 21:15 Respiratory Rate 18 02/01/25 21:15 Blood Pressure 147/80 H 02/01/25 21:15 Pulse Oximetry 98 02/01/25 21:15 Oxygen Delivery Room Air 02/01/25 19:43 Procedures Laceration Laceration 1: Date: 02/01/25 Time: 22:45 Site: face Side (If applicable): left (eyebrow) Size (cm): 2 Description: linear Depth: simple, single layer Local Anesthetic: lidocaine 1% Amount of anesthesia used (mL): 5 Pre-repair: wound explored and irrigated ====== Skin Level ====== Skin layer closed with: nylon Size (cm): 4-0 and 5-0 Number of sutures: 5 Technique: simple, interrupted ====== Subcutaneous Layer ====== ====== Muscle Layer ====== ====== Tendon Layer ====== MDM - Fall MDM Narrative Medical decision making narrative: Patient presented to ED status post ground level mechanical fall with head injury. Laceration to left eyebrow. Patient with history of previous CVA, Parkinson's disease, cortical basal degeneration. Neurologically intact at baseline. Does have some left hemiparesis. feels he has been acting at baseline since the fall. Vital signs are stable. Patient in no acute distress. CT brain, cervical spine, facial bones negative for acute findings. Does show chronic encephalomalacia, no acute facial bone fracture. X-ray of left hand showing acute fractures of 4th and 5th metacarpals. This is patient's contracted/hemiplegic hand. Discussed case with Dr. Guido, orthopedics, recommended volar splint, will see in office. Discussed imaging findings with patient and family, need for orthopedic follow-up. Discussed rice therapy. Will prescribe short course of [place] for home. They are in agreement with plan. Laceration to left eyebrow was repaired without complications. Tetanus updated in the ED. patient given wound care instructions, strict return precautions. Has remained stable and neurologically intact throughout ED stay. Discharged in stable condition. Medical Records Attestation: I reviewed the patient's medical records. Imaging Data Attestation: I personally reviewed and interpreted this imaging study as follows: Radiologist's impression: ITS Impressions Head CT 02/01/25 21:53 IMPRESSION: No acute intracranial hemorrhage or extra axial fluid collections. Encephalomalacia changes within the right frontal and bilateral parietal lobe reflective of remote infarct. Paranasal sinus disease. All CT scans at this facility are performed using low dose modulation techniques as appropriate to perform exam including the following: automated exposure control; use of iterative reconstruction technique; adjustment of the mA and/or kV according to patient size (this includes techniques or standardized protocols for targeted exams where dose is matched to indication/reason for exam). Hand X-Ray 02/01/25 21:59 IMPRESSION: Acute displaced dorsal apex angulated fracture of the neck of the fourth and fifth metacarpal. Head/Cervical Spine/Facial Bones CT 02/01/25 22:05 IMPRESSION: No acute fracture or subluxation. Moderate degenerative changes. All CT scans at this facility are performed using low dose modulation techniques as appropriate to perform exam including the following: automated exposure control; use of iterative reconstruction technique; adjustment of the mA and/or kV according to patient size (this includes techniques or standardized protocols for targeted exams where dose is matched to indication/reason for exam). Discharge Plan Discharge Clinical Impression: Fall from ground level, Closed head injury, Laceration of left eyebrow, Fracture of fourth metacarpal bone of left hand, Fracture of fifth metacarpal bone of left hand Patient Disposition: Home Condition: Stable Instructions: Antibiotic Form, Hand Fracture (ED), Splint Care (ED), Facial Laceration (ED) Additional Instructions: Return to the ED or visit an urgent care or your PCP for follow-up and wound check/suture removal in 7 days. You will also need to follow-up with orthopedics for evaluation of hand fractures. Call office on Tuesday. Wear splint until seen by orthopedics. Recommend frequent icing to areas of pain, Tylenol as needed for pain. [place] as needed for more severe pain. Return to the ED if you experience uncontrolled bleeding, severe pain, dizziness, passing out, new numbness or weakness, unable to keep down food or drink, or any other symptoms of concern. Patient Language: [place] Rican Prescriptions: New hydrocodone-acetaminophen 5-325 mg tablet 1 tablet PO Q6H PRN (Reason: pain) Qty: 15 0RF No Action carbidopa-levodopa 25-100 mg tablet 1 tablet PO TID quetiapine 25 mg tablet 25 mg PO BID sennosides [Senokot] 8.6 mg tablet 17.2 mg PO DAILY PRN (Reason: constipation) atorvastatin 40 mg tablet 40 mg PO DAILY levetiracetam 500 mg tablet 500 mg PO BID aspirin 81 mg Capsule 81 mg PO DAILY losartan 50 mg tablet 50 mg PO DAILY mirtazapine 15 mg tablet 45 mg PO HS ergocalciferol (vitamin D2) 1,250 mcg (50,000 unit) capsule 1,250 mcg PO WEEKLY calcitriol 0.25 mcg capsule 0.25 mcg PO DAILY tramadol 50 mg tablet 50 mg PO Q4H PRN (Reason: pain) Qty: 20 0RF Follow-up/Referrals: Sally,Alvin Hough [Primary Care Provider] Robert Guido MD [Physician, Orthopedics] Referral Note: ORTHOPEDICS Time of Disposition: 23:11
[2025-02-01] MEDS: ACETAMINOPHEN 500 MG TABLET 1000 MG PO (22:07)
[2025-02-01] MEDS: TETANUS,DIPHTHERIA,AC PERTUSSIS ADULT (0.5 ML) BOOSTRIX IM (22:08)
[2025-02-01] MEDS: LIDOCAINE 1% LOCAL INJ 10 ML VIAL (22:37)
[2025-02-01] MEDS: LIDOCAINE 1% LOCAL INJ 20 ML VIAL 10 ML INFILTRATE (22:37)
== END 2025-02-02 00:01 | disposition home or self-care (01) ==
PROVIDERS: Emergency Provider Physician Assistant; PCP Internal Medicine Infectious Disease
DX: S01.112A Laceration without foreign body of left eyelid and periocular area, initial encounter (principal); S62.337A Displaced fracture of neck of fifth metacarpal bone, left hand, initial encounter for closed fracture; S62.335A Displaced fracture of neck of fourth metacarpal bone, left hand, initial encounter for closed fracture; Z23 Encounter for immunization; G20.A1 Parkinson's disease without dyskinesia, without mention of fluctuations; G40.909 Epilepsy, unspecified, not intractable, without status epilepticus; G31.85 Corticobasal degeneration; I69.954 Hemiplegia and hemiparesis following unspecified cerebrovascular disease affecting left non-dominant side; I10 Essential (primary) hypertension; E78.5 Hyperlipidemia, unspecified; N28.9 Disorder of kidney and ureter, unspecified; F41.9 Anxiety disorder, unspecified; F32.A Depression, unspecified; F17.210 Nicotine dependence, cigarettes, uncomplicated; Z96.649 Presence of unspecified artificial hip joint; J32.9 Chronic sinusitis, unspecified; W01.0XXA Fall on same level from slipping, tripping and stumbling without subsequent striking against object, initial encounter
CPT/HCPCS: 12011; 29125; 70450; 70486; 72125; 73130; 90471; 90715; 99284; A9270; J2003

== ENCOUNTER 2025-02-08 15:11 | Emergency (ER) | payer MEDICARE, SELFPAY ==
--- OUTSIDE RECORDS SUMMARY | 2025-02-08 15:14 | XMS_ITS | Encounter Summary ---
Author Organization [facility] Address [address] [place] [address] Phone Care Team Providers Care Bottom Liquor Attendant Name Role Phone Mina House MD Primary Care Provider [phone] Gianluca Zavala MD Primary Care Provider Nico Garcia MD PhD Unavailable Subha Echavarria [employer] OFFIC[employer] Unavailable [phone] Encounter Details Date Type Department Care Team (Late st Contact Info) Description 09/28/2017 Telephone [facility] Medicine Neurosurgery [address] [facility] 6th [place] [address] [place] [address] Jose Villagomez MD [address] [address] Social History Tobacco Use Types Packs/Day Years Used Date Smoking Tobacco: Every Day Alcohol Use Standard Drinks/Week Comments No 0 (1 standard drink = 0.6 oz pur e alcohol) Sex and Gender Information Value Date Recorded Sex Assigned at Not on file 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 Gender Identity Not on file Sexual Orientation Not on file documented as of this encounter Plan of Treatment Not on file documented as of this encounter Visit Diagnoses Not on filedocumented in this encounter Care Teams Bottom Liquor Attendant Relationship Specialty Start Date End Date Mina House MD PCP - General 07/19/17 03/29/21 Gianluca Zavala MD [address] [facility] [address] [place] [address] PCP - General Internal Medicine 03/30/21 Nico Garcia MD PhD [address] [facility] [address] [place] [address] Referring Physician Neurology 05/06/22 Subha Echavarria NP [address] [place] [address] Nurse Practitioner Family Medicine 09/01/23 documented as of this encounter
--- OUTSIDE RECORDS SUMMARY | 2025-02-08 15:14 | XMS_ITS | Encounter Summary ---
Author Organization [facility] of [facility] Address [address] [place] [address] Phone Care Team Providers Care Karate Teacher Name Role Phone Mina House MD Primary Care Provider [phone] Gianluca Zavala MD Primary Care Provider Nico Garcia MD PhD Unavailable Subha Echavarria HOT TAMALE WORKER Unavailable [phone] Encounter Details Date Type Department Care Team (Late st Contact Info) Description 09/29/2017 Telephone [facility] Medicine Neurosurgery [address] [facility] Advanced Medicine 6th [place] [address] [place] [address] Jose Villagomez MD [address] [address] Social History Tobacco Use Types Packs/Day Years Used Date Smoking Tobacco: Every Day Alcohol Use Standard Drinks/Week Comments No 0 (1 standard drink = 0.6 oz pur e alcohol) Sex and Gender Information Value Date Recorded Sex Assigned at Not on file 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 [address] [place] [address] Referring Physician Neurology 05/06/22 Subha Echavarria NP [address] [place] [address] Nurse Practitioner Family Medicine 09/01/23 documented as of this encounter
--- OUTSIDE RECORDS SUMMARY | 2025-02-08 15:15 | XMS_ITS | Data Portability ---
Author Organization [place] - [employer], Main Office Address [address] [place] [address] Care Team Providers Care Chemical Equipment Controller Name Role Phone NANCI BROOKE Primary Care Provider NANCI BROOKE Referring Provider [phone] Assessment Encounter Date Assessment Date Assessment LastModified by Organization Details LastModified Time 03/03/2023 03/03/2023 The patient has left shoulder pain due to severe primary osteoarthritis with [id number] changes in the glenohumeral joint. he also has some inferior subluxation likely due to his neurologic condition. 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 We did talk about treatment options today in detail for pain relief he wanted to try a shot of cortisone therefore under sterile conditions I injected the patient's left shoulder joint in the office with 4 cc 0.5% bupivacaine and 20 mg of Kenalog. Patient tolerated the procedure well. We will have him do a course of physical therapy for working on some range of motion and strengthening of possible. They will set him up with a home program he can do on his own as well. I will see him back in 6-8 weeks to see how he is doing. The patient and his voiced understanding and agree with the above plan they are aware that he is not a good surgical candidate and they agree with this as well. They would rather get by with conservative measures. We will avoid anti-inflammatory medication due to complicating factors with other medical issues as described. [email or web address] Not available 03/03/2023 11:15:07 09/28/2024 09/28/2024 69-year-old patient presents today with left elbow pain after a fall on 09/06/2024. He presented to the hospital where x-rays were taken and he was told he fractured his ulna. He was placed in a sling. Today he presents still wearing the sling. He states that the Velcro comes in done in a car causes his arm to fall which is very painful. He rates his pain 10/10. He is unable to take NSAIDs due to kidney disease. He has a history of stroke and had minimal use of the left arm prior to this injury. Patients states he typically kept the arm against his body bent at 90. His is helping with history today as the patient has memory loss. Review of systems per patient questionnaire Imaging: X-rays of the left elbow show a nondisplaced olecranon fracture. Physical exam: Bruising around the elbow. Tenderness with light palpitation. able to perform slight extension at the elbow but is unable to flex. Patient's states he was unable to do that before his injury. Due to the patients health history and low demand we will treat this fracture conservatively. We will have him remain in the sling for now, as it is too painful when it comes out. He states he was not given anything for pain and tylenol is not helping. He has not been able to sleep at night. We will give him [place] to take at night for pain. We will fit him with a better sling. We will see him back in 2 weeks with repeat xrays for recheck. Not available 09/28/2024 11:30:50 10/12/2024 10/12/2024 69-year-old patient presents today for follow up of left elbow olecranon fracture after a fall on 09/06/2024. He has been wearing the sling. States his pain is 8/10. He is out of the hydrocodone and states he cannot sleep at night without it because the pain keeps him awake. Imaging: X-rays of the left elbow show a nondisplaced olecranon fracture with new bone formation. Physical exam: No bruising around the elbow. Tenderness with firm palpitation. Pt states majority of his pain is sensitivity to the skin. Able to extend to 30 degrees with pain. Due to the patients health history and low demand we will continue to treat this fracture conservatively. We will have him remain in the sling for now, as it is painful when he comes out. We will renew his [place] to take at night for pain. We discussed going to PT to work on elbow ROM. He and his state that he did not have much movement in the arm prior to the injury due to a stroke, so they do not want to go to PT. We will see them back in 2-3 weeks for repeat xrays. Not available 10/12/2024 11:54:43 Plan of Treatment Reminders Order Date Submit Date Provider Last Modified By Organization Details Last Modified Time Details Appointments New Patient 2024 10:30A Piotr Mc MD Not available Not available Not available Lab None recorded. Referral physical therapist referral 2022 023 [email or web address] 1 [facility] [place], [address] [place] [address], [address], 03/03/2023 13:32:11 Procedures injection /aspirati on joint/bur sa (PROC) 2022 023 [email or web address] In-Office Order, Internal Use Only DO Not Attach Compendium DO Not Attach Compendium, Do Not Delete/merge, [id number] 03/03/2023 11:12:27 Surgeries None recorded. Imaging XR, elbow 2024 025 [email or web address] [facility] [place], [address], [place], [address], 10/12/2024 12:21:46 XR, elbow, 3 or more view 2024 025 [email or web address] [facility] [place], [address], [place], [address], 10/01/2024 10:44:01 XR, shoulder 2022 023 [email or web address] 1 [facility] [place], [address], [place], [address], 03/03/2023 13:32:12 Medication Orders hydrocodo ne 5 mg-acetam inophen 325 mg tablet 2024 025 [facility] #[id number], [address], [place], [address], 10/12/2024 11:55:22 hydrocodo ne 5 mg-acetam inophen 325 mg tablet 2024 025 [facility]/Pharmacy #[id number], [address], [place], [address], 09/28/2024 11:32:16 bupivacai ne HCl 0.5 % (5 mg/mL) injection solution 2022 023 [email or web address] [facility] #[id number], [address], [place], [place], [id number], 03/03/2023 11:39:02 Kenalog 10 mg/mL suspensio n for injection 2022 023 [email or web address] [facility] #[id number], [address], [place], [place], [phone], 09/28/2024 10:01:52 Patient TargetsNo targets recorded. Patient InstructionsNo instructions recorded. Reason for Referral Physical Therapist Referral for Pain of left shoulder joint ROM and [place] teach home home program Referring Physician: Arash Hannah, Orthopedic Surgery, Encounter Date: 03/03/2023 Results Created Date Observation Date Name Description Value Unit Range Abnormal Flag Note LastModifiedBy Organization Detail LastModifiedTime 10/11/19 21 XR, shoul phil, 2 or more view No observ ation record ed. [id number] [facility] [place] [address], [place], [address], 06/02/2022 12:54:44 02/22/20 23 11/16/2021 MRI, cervi ashley spine , w/wo contr ast No observ ation record ed. [email or web address] Not Available 02/03 15:30:59 02/22/20 23 05/06/1920 XR, hand, 3 or more view No observ ation record ed. [email or web address] Not Available 02/03 15:30:59 03/03/20 XR, shoul phil No observ ation record ed. [email or web address] [facility] [place] [address], [place], [address], 03/03/2023 11:18:06 09/27/19 25 09/06/2024 XR, elbow , 3 or more view No observ ation record ed. [email or web address] Not Available 09/03 12:20:31 09/29/19 XR, elbow , 3 or more view No observ ation record ed. [email or web address] [facility] [place] [address], [place], [address], 10/01/2024 10:44:00 10/13/19 XR, elbow No observ ation record ed. [email or web address] [facility] [place] [address], [place], [address], 10/12/2024 11:49:57 02/06/2002/01/2025 XR, hand, 3 or more view No observ ation record ed. [email or web address] Not Available 07/2024 11:14:02 02/06/2002/01/2025 CT, cervi ashley spine , w/o contr ast No observ ation record ed. [email or web address] Not Available 07/2024 11:14:02 02/06/2002/01/2025 CT, brain , w/o contr ast No observ ation record ed. [email or web address] Not Available 07/2024 11:14:02 Result Notes None recorded. Problems Name Problem SNOMED Code Status Onset Date Resolution Date Notes Provider Name and Address Organization Details Recorded Time Increased frequency of urination 699099441 Completed Not Available [facility] 3 12:50:36 Splenomeg nevin 24741938 Active Not Available [facility] 3 12:50:36 Platelet count outside reference range 963304536 Active Not Available [facility] 3 12:50:36 Nausea and vomiting 04673941 Completed Not Available [facility] 3 12:50:36 Radiother apy follow-up 697780021 Active Not Available [facility] 3 12:50:36 Localized , primary osteoarth ritis of the pelvic region and thigh 078879766 Active Not Available [facility] 3 12:50:36 Anomalies of pancreas 536467142 Active Not Available [facility] 3 12:50:36 Abdominal pain 59493017 Completed Not Available [facility] 3 12:50:36 Open wound of lower limb 41558867 Completed Not Available [facility] 3 12:50:36 Thrombocy topenic disorder 123683298 Active Not Available [facility] 3 12:50:36 Hypertens michael disorder 10787320 Active Not Available [facility] 3 12:50:36 High lipase level in serum 007418167 Active Not Available [facility] 3 12:50:36 Venous stasis 75159601 Active Not Available [facility] 3 12:50:37 Snoring 71068106 Active Not Available [facility] 3 12:50:37 Sleep apnea 81617712 Active Not Available [facility] 3 12:50:37 Swelling of limb 09222470 Completed Not Available [facility] 3 12:50:37 Fatigue 27633804 Active Not Available [facility] 3 12:50:37 Dyslipide ghazal 047498222 Active 2016 Not Available [facility] 3 12:50:36 Arthritis of joint of left shoulder region 30619922840 40660 Active 2020 Not Available [facility] 3 12:50:36 Pain of left shoulder joint 19520895714 906812 Active 2022 KENNEY Magallon, [employer] 3 10:17:20 Localized , primary osteoarth ritis of the shoulder region 328418044 Active 2022 JAVIER Rojas [address] [employer], [address] [facility], [place], [address] , [employer] [facility] 3 11:18:26 Hemiplegi a and/or hemipares is following stroke 62973531784 107 Active 2022 JAVIER Rojas [address], [address], [place], [address] , [employer] 3 11:18:57 Left hemipares is 066652918 Active 2022 JAVIER Rojas [address] [employer] [address] [employer], [address], [place], [address] , [employer] [facility] 3 11:20:18 Pain of elbow region 46245726 Active 2024 SHAYLEE Goodman, [employer] [facility] 5 10:04:22 Problem Notes None recorded. Procedures Surgical History Date Name Laterality Status Provider Name and Address Organization Details Recorded Time total replacement of hip completed Not Available [facility] 06/02/2022 12:48:25 Neck Surgeries completed Not Available [facility] 06/02/2022 12:48:25 Rotator cuff surgery completed Billie Castillo CNA [email or web address] - [facility] [employer] [facility] 03/03/2023 10:16:16 Imaging Results None recorded. Procedure Notes None recorded. Medical Equipment None Reported. Allergies Allergen ID Allergen Name Allergen Category Reaction Reaction Severity Criticality Documentation Date Start Date Code Code System Note Provider Name and Address Organization Details Recorded Time 60352 menthol / methyl salicylat e medicatio n rash severe Not available 06/02/2022 19519 7 RxNorm Not Available [facility] 3 12:54:41 Medications Name Sig Start Date Stop Date Status Note LastModified by Organization Details LastModified Time losartan 50 mg tablet TAKE 1 TABLET BY MOUTH EVERY DAY AROUND THE CLOCK FOR 90 DAYS, FOR HYPERTEN JOSEPH active Not Available Not Available No t Available quetiapin e 25 mg tablet TAKE 1 TABLET BY MOUTH TWICE A DAY DIRECTED FOR IRRITABI LITY/DEP RESSION active Not Available Not Available No t Available atorvasta tin 40 mg tablet TAKE 1 TABLET BY MOUTH EVERY DAY active Not Available Not Available No t Available silver sulfadiaz ine 1 % topical cream 08/03 completed Not Available Not Available Not Available Augmentin 875 mg-125 mg tablet Take 1 tablet twice a day by oral route for 7 days. 05/29 completed Not Available Not Available Not Available prednison e 10 mg tablet 07/27 completed Not Available Not Available Not Available oxybutyni n chloride ER 15 mg tablet,ex tended release 24 hr TAKE 1 TABLET BY MOUTH EVERY DAY 09/28 completed Not Available Not Available Not Available atorvasta tin 10 mg tablet TAKE ONE TABLET DAILY active Not Available Not Available No t Available azithromy herman 250 mg tablet 04/02 completed Not Available Not Available Not Available tramadol 37.5 mg-acetam inophen 325 mg tablet TAKE 2 TABLETS BY MOUTH EVERY 12 HOURS 09/28 completed Not Available Not Available Not Available levetirac etam 500 mg tablet TAKE 2 TABLETS BY MOUTH IN THE MORNING AND IN THE EVENING 09/28 completed Not Available Not Available Not Available hydrocodo ne 5 mg-acetam inophen 325 mg tablet TAKE 1 TABLET BY MOUTH EVERY 6 HOURS active Not Available Not Available No t Available meloxicam 15 mg tablet TAKE 1 TABLET BY MOUTH DAILY FOR A MONTH 03/03 completed Not Available Not Available Not Available bupivacai ne HCl 0.5 % (5 mg/mL) injection solution Take 20 mg by injectio n route. 2022 active Not Available Not Available Not Avai lable permethri n 5 % topical cream 03/15 completed Not Available Not Available Not Available penicilli n V potassium 500 mg tablet 02/08 completed Not Available Not Available Not Available hydrocodo ne 10 mg-acetam inophen 325 mg tablet TAKE 1 TABLET BY MOUTH EVERY 8 HOURS NEEDED FOR PAIN 03/03 completed Not Available Not Available Not Available omeprazol e 40 mg capsule,d elayed release Take 1 capsule every day by oral route. active Not Available Not Available No t Available tramadol 50 mg tablet TAKE 1 TABLET BY MOUTH EVERY 4 HOURS NEEDED FOR PAIN 09/28 completed Not Available Not Available Not Available triamcino lone acetonide 0.1 % topical cream active Not Available Not Available Not Available cyprohept adine 4 mg tablet 10/06 completed Not Available Not Available Not Available oxycodone -acetamin ophen 5 mg-325 mg tablet active Not Available Not Available Not Available Zofran 8 mg tablet Take 1 tablet every 8 hours by oral route for 2 days. 07/27 completed Not Available Not Available Not Available triamcino lone acetonide 0.025 % topical cream 03/15 completed Not Available Not Available Not Available Kenalog 10 mg/mL suspensio n for injection Take 20 mg by injectio n route. 09/28 completed [facility]: [phone] 4-20 Not Available Not Available Not Available baclofen 10 mg tablet 09/28 completed Not Available Not Available Not Available hydrocodo ne 7.5 mg-acetam inophen 325 mg tablet 02/08 completed Not Available Not Available Not Available cephalexi n 500 mg capsule TAKE 1 CAPSULE BY MOUTH EVERY 6 HOURS FOR 7 DAYS 09/28 completed Not Available Not Available Not Available mirtazapi ne 30 mg tablet TAKE 1 TABLET BY MOUTH EVERY DAY AT BEDTIME active Not Available Not Available No t Available triamcino lone acetonide 0.1 % topical ointment 08/02 completed Not Available Not Available Not Available dexametha sone 4 mg tablet 01/09 completed Not Available Not Available Not Available lisinopri l 10 mg tablet TAKE 1 TABLET BY MOUTH EVERY DAY DIRECTED 03/03 completed Not Available Not Available Not Available prednison e 50 mg tablet TK 1 T PO D 04/02 completed Not Available Not Available Not Available docusate sodium 100 mg capsule TAKE 1 CAPSULE BY MOUTH EVERY DAY DIRECTED FOR 15 DAYS, FOR CONSTIPA TION. 09/28 completed Not Available Not Available Not Available mirtazapi ne 45 mg tablet TAKE 1 TABLET BY MOUTH EVERY DAY AT BEDTIME NEEDED FOR ANXIETY/ DEPRESSI ON active Not Available Not Available No t Available lisinopri l 5 mg tablet TAKE 1 TABLET BY MOUTH ONCE DAILY 09/28 completed Not Available Not Available Not Available mupirocin 2 % topical ointment 08/02 completed Not Available Not Available Not Available mirtazapi ne 15 mg tablet TAKE 1 TABLET BY MOUTH EVERY DAY AT BEDTIME active Not Available Not Available No t Available gabapenti n 100 mg capsule TAKE 1 CAPSULE BY MOUTH TWICE DAILY 03/03 completed Not Available Not Available Not Available ergocalci ferol (vitamin D2) 1,250 mcg (50,000 unit) capsule TAKE 1 CAPSULE BY MOUTH EVERY WEEK active Not Available Not Available No t Available clobetaso l 0.05 % topical ointment APPLY A THIN LAYER TO THE AFFECTED AREAS TWICE DAILY DIRECTED 09/28 completed Not Available Not Available Not Available Aspir-81 mg tablet,de layed release Take 1 tablet every day by oral route. 04/02 completed Not Available Not Available Not Available lisinopri l 10 mg-hydroc hlorothia zide 12.5 mg tablet TAKE ONE TABLET DAILY 04/12 completed neuro stopped Not Available Not Available Not Available levofloxa herman 500 mg tablet 02/04 completed Not Available Not Available Not Available methylpre dnisolone 4 mg tablets in a dose pack 02/04 completed Not Available Not Available Not Available albuterol sulfate HFA 90 mcg/actua tion aerosol inhaler INL 2 PFS PO Q 4 TO 6 H PRF SOB 04/02 completed Not Available Not Available Not Available carbidopa 25 mg-levodo pa 100 mg tablet TAKE 1 TABLET BY MOUTH 3 TIMES DAILY active Not Available Not Available No t Available sertralin e 50 mg tablet TAKE ONE TABLET DAILY 01/17 completed Not Available Not Available Not Available calcitrio l 0.25 mcg capsule TAKE 1 CAPSULE BY MOUTH EVERY DAY active Not Available Not Available No t Available oxycodone 5 mg tablet 08/02 completed Not Available Not Available Not Available escitalop bryce 10 mg tablet active Not Available Not Available Not Available cyclobenz aprine 5 mg tablet 08/02 completed Not Available Not Available Not Available duloxetin e 20 mg capsule,d elayed release 03/03 completed Not Available Not Available Not Available duloxetin e 30 mg capsule,d elayed release TAKE 1 CAPSULE BY MOUTH EVERY DAY DIRECTED 03/03 completed Not Available Not Available Not Available lactulose 10 gram/15 mL oral solution TAKE 15 ML BY MOUTH QD NEEDED FOR 30 DAYS 03/03 completed Not Available Not Available Not Available Aspir-81 03/03 completed Not Available Not Available Not Available lidocaine (PF) 10 mg/mL (1 %) injection solution In office injectio n administ ered by the provider 03/03 completed [facility]: [phone] -[phone] Not Available Not Available Not Available cholecalc iferol (vitamin D3) 1,250 mcg (50,000 unit) capsule TAKE 1 CAPSULE BY MOUTH EVERY WEEK FOR VITAMIN DEFICIAN CY active Not Available Not Available No t Available diclofena c 1 % topical gel APPLY 2 GRAMS TOPICALL Y TO THE AFFECTED AREA FOUR TIMES DAILY NEEDED 03/03 completed Not Available Not Available Not Available Senexon-S 8.6 mg-50 mg tablet TAKE 2 TABLETS BY MOUTH EVERY DAY NEEDED FOR 15 DAYS, FOR SEVERE CONSTIPA TION. active Not Available Not Available No t Available Xarelto 10 mg tablet 04/02 completed Not Available Not Available Not Available Chantix Continuin g Month Box 1 mg tablet Take 1 tablet twice a day by oral route. 08/02 completed Not Available Not Available Not Available Chantix Starting Month Box 0.5 mg (11)-1 mg (42) tablets in dose pack Take 1 startr pk by oral route as directed . 08/02 completed Not Available Not Available Not Available Fluzone 6487-1364 45 mcg (15 mcg x 3)/0.5 mL intramusc ular suspensio n active Not Available Not Available Not Available Movantik 25 mg tablet TAKE 1 TABLET BY MOUTH EVERY DAY DIRECTED 03/03 completed Not Available Not Available Not Available Flucelvax Quad 8019-1745 (PF) 60 mcg (15 mcg x 4)/0.5 mL IM syringe 10/24 completed Not Available Not Available Not Available Vitals Date Recorded Body height Body mass index (BMI) Body weight Pain severity - 0-10 verbal numeric rating [Score] - Reported Provider Name and Address Organization Details Last Updated DateTime 09/28/2024 185.42 cm 26.4 kg/m2 11201.47 g 10 SHAYLEE [place] [facility] [employer] 09/28/2024 10:01:09 Date Recorded Body mass index (BMI) Body height Body weight Provider Name and Address Organization Details Last Updated DateTime 10/10/2020 26.8 kg/m2 185.42 cm 14549.25 g Not Available [facility] 06/02/2022 12:49:50 Date Recorded Body height Body mass index (BMI) Body weight Pain severity - 0-10 verbal numeric rating [Score] - Reported Provider Name and Address Organization Details Last Updated DateTime 10/12/2024 185.42 cm 26.4 kg/m2 62484.47 g 8 Cecilia Zamorano [place] [email or web address] [facility] [employer] [facility] 10/12/2024 10:06:31 Date Recorded Body height Body mass index (BMI) Body weight Provider Name and Address Organization Details Last Updated DateTime 03/03/2023 180.34 cm 26.1 kg/m2 86912.77 g Mary Bowmans [employer] [facility] [employer] 03/03/2023 10:22:13 Social History Question Answer Notes LastModified by [employer] Details LastModified Time Tobacco Smoking Status Current Every Day Smoker Not Available [facility] 06/02/2022 12:48:20 What Was The Date Of Your Most Recent Tobacco Screening? 09/28/2024 Information not available 09/28/2024 How Much Tobacco Do You Smoke? 0.5 PPD Information not available 03/03/2023 How Many Years Have You Smoked Tobacco? 45 Information not available 03/03/2023 Sex: Unknown Functional Status Question Answer Note LastModified by [employer] Details LastModified Time What is your level of alcohol consumption? None [id number] Information not available 06/02/2022 What is your occupation? retired [id number] Information not available 06/02/2022 Mental Status None recorded. Family History Relationship Description Onset Age of this Age Resolved Age Notes LastModified by Organization Details LastModified Time Unspecified Relation Hypertensive disorder [email or web address] Not available 2022 10:15:43 Medical History Condition Response SKIN PROBLEMS Y ARTHRITIS Y HYPERTENSION Y STROKE/TIA Y Immunizations Vaccine Type Date Status Note Provider Nam e and Address Organization Details Recorded Time Influenza, split virus, quadrivalent, preservative 8 completed Not Available [facility] 06/02/2022 12:54:36 Influenza, high-dose, trivalent, PF 4 completed Not Available [facility] 06/02/2022 12:54:36 Influenza, split virus, quadrivalent, PF 8 completed Not Available [facility] 06/02/2022 12:54:37 Past Encounters Encounter ID Performer Location Encounter Start Date Encounter Closed Date Diagnosis/Indication Diagnosis SNOMED-CT Code Diagnosis ICD10 Code Diagnosis IMO Codes Diagnosis Note [id number] Felix Begum MD [facility] [place] [address] [place] [address] 10/10/2020 00:00:00 10/10/2020 10:55:37 [id number] Priyank Sandy MD [facility] [place] [address] [place] [address] 03/03/2023 09:53:12 03/03/2023 13:32:11 Pain of left shoulder joint 1603666671 0381462 M25.512 Localized, primary osteoarthritis of the shoulder region 092145486 M19.012 Left hemiparesis 1461628 00 G81.90 [id number] Samuel Adame MD [facility] [place] [address] [place] [address] 09/28/2024 09:36:52 09/28/2024 10:49:54 Pain of elbow region 29881312 M25.522 [id number] Samuel Adame MD [facility] [place] [address] [place] [address] 10/12/2024 10:02:34 10/12/2024 10:46:16 Pain of elbow region 18241994 M25.522 [id number] Health Concerns Section Related Observation LastModified by Organization Detai ls LastModified Time None Recorded Concern Status LastModified by Organization Details LastModified Time None Recorded Advance Directives Directive None Recorded Payers Insurance Date Sequence Insurance Name Policy Number Policy Brock Covered Member ID Brock Member ID Guarantor Name 02/05/2025 1 [employer] (MEDICARE REPLACEMENT/A DVANTAGE - HMO) [id number] Soy Wiley [id number] Soy Wiley 10/10/2024 1 [facility] (MEDICARE REPLACEMENT/A DVANTAGE - O) [id number] Soy Wilye [id number] Soy Wiley Notes Date Note Type Note Provider Name and Address Organization Details Recorded Time 03/03/2023 text/html patient returns complaining of left shoulder pain. Dr. Begum saw the patient for his shoulder 2-1/2 years ago. At that time he was noted to have some osteoarthritis of left shoulder joint and limited motion. Shot of cortisone did give him some relief for short period an MRI scan at that time was also ordered but this was never accomplished by the patient. He did go to physical therapy for a while as well. He has been living with pain for about 3 years. Part of the problem is now he has developed weakness in the left upper extremity due to brain disorder that was evaluated and diagnosed at [facility] about a year ago. 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 He has the appearance of a left-sided hemiplegia but actually has fairly good strength but obvious muscle wasting. His main complaint is left shoulder pain he states he has numbness throughout the entire left arm and has trouble using it for daily activities. This has been progressive in nature over the last year as well. He states the pain in the shoulder keeps him awake at night at times almost any movement or activity with left shoulder causes him pain he reports the pain to be about a 7 on a scale 1-10 most days. He is not taking any anti-inflammatory medication at 1 time he was taking meloxicam a couple of years ago but stopped taking this he has had also history of mini-stroke and other multiple medical issues so we will avoid medication at this time. He comes in today for evaluation treatment of his left shoulder pain as described. He does report stiffness loss of motion weakness. He states he had a left shoulder rotator cuff repair done many years ago but cannot remember how long ago states it has been more than 10 years at least.Past medical history sheet was reviewed and signed on intake sheet of today's date with the patient and his past medical history drug allergies current medications family social history previous surgical history 10 point review of systems was reviewed and discussed in detail. JAVIER Rojas [address], [place], [address], [place] - [facility] 03/03/2023 11:21:03
--- OUTSIDE RECORDS SUMMARY | 2025-02-08 15:15 | XMS_ITS | Clinical Summary ---
Author Organization [facility] Address [address] [place] [address] Care Team Providers Care Face Man Name Role Phone Gianluca Zavala MD Primary Care Provider Nico Garcia MD PhD Unavailable Subha Echavarria COMPO CONVEYOR OPERATOR Unavailable [phone] Allergies Active Allergy Reactions Criticality Noted [...] for constipation Active iron aspgly,ps-C-B12 -FA-Ca-suc 150-60-25-1 ku-je-nry-mg capsule Take by mouth Active aspirin 81 [...] treatment period. 57 tablet 3 2 Active triamcinolone (KENALOG) 0.1 % cream 4 [...] by mouth nightly at bedtime 4 Active levETIRAcetam (KEPPRA) 500 mg tablet TAKE 2 TABLETS BY MOUTH IN THE MORNING AND IN THE EVENING 120 tablet 11 4 Active traMADol-acetam inophen (ULTRACET) 37.5-325 mg per tablet Take 2 tablets by mouth every 12 (twelve) hours 40 tablet 1 5 Active traMADol-acetam inophen (ULTRACET) 37.5-325 mg per tablet Take 1 tablet by mouth every 8 (eight) hours as needed for pain (may take 2 tab for severe pain) for up to 20 days 30 tablet 1 5 Active mirtazapine (REMERON) 45 mg tablet 5 Active QUEtiapine (SEROquel) 25 mg tablet TAKE 1 TABLET BY MOUTH TWICE A DAY DIRECTED FOR IRRITABILITY/DEP RESSION X90 DAYS Active omeprazole (PriLOSEC) 40 mg capsule Take 1 capsule every day by oral route. 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 [place] Medicine Ophthalmology [address] [place] [address] Bess Alvarez MD newneuropt from Last 3 Months Immunizations Immunization Administration Dates Next Due Influenza, Quadrivalent, Natasha l Culture-based MDCK, Preservative Free, Antibiotic Free, Intramuscular 04/20/2017 Influenza, Quadrivalent, Split, Intramuscular Influenza, Quadrivalent, Spl it, Preservative Free, Intramuscular 03/01/2018 Influenza, Trivalent, High D ose, Split, Preservative Free, Intramuscular 01/25/2014 Influenza, Trivalent, IM (MDV) 02/10/2015 Surgical History Surgery Date Site/Laterality Comments ROTATOR CUFF REPAIR Rotator Cuff Repair - (Added by Conv) KNEE SURGERY Knee Surgery Right - (Added by Conv) COLONOSCOPY 04/04/2013 - 04/03/2014 CARDIAC CATHETERIZATION [...] Headache Chronic headache s - (Added by Conv) PVD (peripheral vascular disease) HTN (hypertension) Anemia GERD (gastroesophageal reflux disease) Hiatal hernia ESTELA (obstructive sleep apnea) Thrombocytopenia CVA (cerebral vascular accident) (HCC) 10/2017 CKD (chronic kidney disease) 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 Cervical myelopathy (HCC) Family History Medical History Relation Name Comments Stroke Father Stroke; Stroke Other Family history of cerebrovascular accident (CVA) - (Added by TW Conv) Anesthesia problems Neg Hx Relation Name Status Comments Father Other Social History Tobacco Use Types Packs/Day Years Used Date Smoking Tobacco: Every Day Cigarettes 1 46.4 Started: 1985 Smokeless Tobacco: Never Tobacco Cessation:Ready [...] on file 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 Gender Identity Not on file Sexual Orientation Not on file Last Filed Vital Signs Vital Sign Reading Time Taken Comments Blood Pressure 133/80 10/22/2024 2:39 PM CDT Pulse 98 09/01/2023 10:42 AM CDT Temperature 36.6 C (97.8 F) 06/23/2022 12:47 PM CDT Respiratory Rate 16 06/23/2022 12:47 PM CDT Oxygen Saturation 95% 06/23/2022 12:47 PM CDT Inhaled Oxygen Concentration - - Weight 91.6 kg (202 lb) 10/22/2024 2:39 PM CDT Height 185.4 cm (6' 1) 10/22/2024 2:39 PM CDT Body Mass Index 26.65 10/22/2024 2:39 PM CDT Plan of Treatment Health Maintenance Due [...] Risk Assessment 06/24/2023 06/23/2022 Influenza Vaccine (#1) 2024 8, 04/21/2017, 04/20/2017, Additional history exists Hepatitis C Screening Completed 10/27/2017 Medical Devices Implanted Type Area Department Chairperson Device Identifier Shelf Expiration Date Model / Serial / Lot Rt Total Hip Arthroplasty Right: Hip [employer] Inc Os-201 Hemasorb Spatula Wax 2gm Bone Sterile - [id number] Implanted:Qty: 1 on 05/11/2018 by Jose Villagomez MD at [facility] N/A: Spine Cervical [employer] Inc 10/02/2020 OS-201 / / [id number] [employer] Inc 700-025 I Factor Allograft Putty Syringe Graft 2.5cc Bone - [id number] Implanted:Qty: 1 on 05/11/2018 by Jose Villagomez MD at [facility] N/A: Spine Cervical [employer] Inc [id number] 03/03/2021 700-025 / / [id number] Lifenet [id number] Bio Avs 14x7mm Monolithic Texture Plug Chamfer Leading Edge Spine - [id number] - [id number] Implanted:Qty: 1 on 05/11/2018 by Jose Villagomez MD at [facility] N/A: Spine Cervical [employer] 06/27/2022 [id number] / [id number] / Graham Spine [id number] Aviator 14x17.4x2.5mm Level 1 Automatic Lock System Spring Load - [id number] Implanted:Qty: 1 on 05/11/2018 by Jose Villagomez MD at [facility] N/A: Spine Cervical Frieda Spine [id number] / / Frieda Spine [id number] Aviator 4mm 14mm Variable Angle Self Tap Spine Cervical Anterior - [id number] Implanted:Qty: 4 on 05/11/2018 by Jose Villagomez MD at [facility] N/A: Spine Cervical Frieda Spine [id number] / / Procedures Procedure Name Priority Date/Time [...] Lakshmi Richards M.D. us Sweta Nickerson MD IMG CT PROCEDURES Final Resu lt * Hepatitis panel, acute (10/27/2017 4:15 PM CDT) Hep A IgM Nonreactive Nonreactive [facility] Comment: Interpretive Data If test is reported as GRAYZONE, new sample should be drawn in two weeks for testing. Current interpretive data was last revised on 2016. Hep B core IgM Nonreactive Nonreactive [facility] Comment: Interpretive Data If test is reported as GRAYZONE, new sample should be drawn for testing. Current interpretive data was last revised on 2016. Hep C Ab Nonreactive Nonreactive [facility] Comment: Interpretive Data Positive and greyzone results should be confirmed by a molecular method. If positive or greyzone, a second separately collected sample should be submitted for Hepatitis C Virus RNA. Detection and Quantitation by Real-Time Reverse Nurse Ortho-PCR.Current Interpretive data was last revised on 2016. HepBsAg Nonreactive Nonreactive [facility] Blood specimen (specimen) 10/27/2017 4:15 PM CDT 10/27/2017 4:26 PM CDT Narrative [facility] - 10/28/2017 10:18 AM CDT us Sweta Nickerson MD LAB MICROBIOLOGY - GENERAL O RDERABLES Edited Result - Final [facility] [place] [address] from Last 3 Months or Most Recently Relevant to Health Maintenance Insurance [facility] UHC MDCR HMO [facility] Address: [facility] [address] [place] [address] [facility] HMO RE[facility] Address: [address] [address] [place] [address] [employer] [facility] ADVANTRA Advance Directives For more information, please contact: [phone] * Full Code (Latest Code Status on File) Date Activated Date Inactivated Comments 05/11/2018 7:44 AM 05/12/2018 5:49 PM * Full Code Date Activated Date Inactivated Comments 10/28/2017 11:55 PM 10/29/2017 7:16 PM Care Teams Face Man Relationship Specialty Start Date End Date Gianluca Zavala MD [address] [facility] [address] [place] [address] PCP - General Internal Medicine 03/30/21 Nico Garcia MD PhD [address] [place] [address] Referring Physician Neurology 05/06/22 Subha Echavarria NP [address] [place] [address] Nurse Practitioner Family Medicine 09/01/23
[2025-02-08 15:17] VITALS: BP 167/102; PULSE 91; RESP 16; TEMP 36.6; O2SAT 98
--- NOTE | 2025-02-08 15:26 | ED.GENADULT ---
HPI - General Adult General Chief complaint: Recheck/Abnormal Lab/Rx Stated complaint: stitch removal Time Seen by Provider: 02/08/25 15:12 Source: patient, family and old records reviewed Mode of arrival: ambulatory Limitations: no limitations History of Present Illness HPI narrative: Patient is a 69-year-old male, PMH of CVA w/ L sided hemiplegia, corticobasal degeneration, parkinson's disease, seizure disorder, who presents the ED for suture removal. Patient was seen in the ED here on 02/01 after fall, seen by myself. Received 5 stitches to his left eyebrow. Did also sustain left hand fractures, for which he is following up with Hand surgery next week. Presents today to have stitches removed. Patient and deny any further concerns. Denies any new fall or injury. Related Data Home Medications ?Medication ?Instructions ?Recorded ?Confirmed ?Last Taken ?Type aspirin 81 mg capsule 81 mg PO DAILY 04/27/21 08/31/24 08/30/24 History atorvastatin 40 mg tablet 40 mg PO DAILY 04/27/21 08/31/24 08/30/24 History levetiracetam 500 mg tablet 500 mg PO BID 04/27/21 08/31/24 08/30/24 History calcitriol 0.25 mcg capsule 0.25 mcg PO DAILY 07/09/23 08/31/24 08/30/24 History ergocalciferol (vitamin D2) 1,250 1,250 mcg PO WEEKLY 07/09/23 08/31/24 08/30/24 History mcg (50,000 unit) capsule losartan 50 mg tablet 50 mg PO DAILY 07/09/23 08/31/24 08/30/24 History mirtazapine 15 mg tablet 45 mg PO HS 07/09/23 08/31/24 08/30/24 History carbidopa 25 mg-levodopa 100 mg 1 tablet PO TID 08/23/24 08/31/24 08/30/24 History tablet quetiapine 25 mg tablet 25 mg PO BID 08/23/24 08/31/24 08/30/24 History sennosides 8.6 mg tablet (Senokot) 17.2 mg PO DAILY PRN constipation 08/23/24 08/23/24 Unknown History Allergies Allergy/AdvReac Type Severity Reaction Status Date / Time menthol (From IcFeidee Hot) Allergy Mild Rash Verified 02/08/25 15:14 methyl salicylate (From Icy Allergy Mild Rash Verified 02/08/25 15:14 Hot) Review of Systems Review of Systems: All systems reviewed & are unremarkable except as noted in HPI. All systems reviewed & are unremarkable except as noted in HPI and below PMFSH Past Medical History Medical History Parkinson disease Disease of brain Anxiety Depression Kidney disorder Hypertension Seizures Hyperlipidemia Memory impairment CVA (cerebral vascular accident) Surgical History Surgical History History of hip replacement H/O neck surgery History of eye surgery Social History Social History Smoking packs per day: 1 Smoking cigarettes per day: 20.0 Years smoked: 45 Smoking pack-years: 45.00 Tobacco type: cigarettes Alcohol intake: never Substance use: never Substance use type: does not use Living arrangements: with family Spiritual care concerns: No Exam Narrative: GENERAL: Well appearing, well-nourished, non-toxic, in no acute distress. HEAD: Normocephalic, atraumatic. EYES: PERRL/EOMI, conjunctiva clear. Old green/yellow bruising to L facial cheek w/o tenderness. Laceration to L eyebrow, healing well, no dehiscence, small overlying scab. No bleeding or drainage. RESPIRATORY: Airway patent, respirations nonlabored. CARDIOVASCULAR: Regular rate and rhythm MUSCULOSKELETAL: Moves all extremities. No gross deformities. SKIN: Warm, dry, normal color. NEURO: Alert, follows commands/answers questions. Speech clear. PSYCHIATRIC: Appropriate mood and affect. Normal interaction. Course Vital Signs Vital signs: Vital Signs Temperature 98 F 02/08/25 15:17 Pulse Rate 91 02/08/25 15:17 Respiratory Rate 16 02/08/25 15:17 Blood Pressure 167/102 H 02/08/25 15:17 Pulse Oximetry 98 02/08/25 15:17 Temperature 98 F 02/08/25 15:17 Pulse Rate 91 02/08/25 15:17 Respiratory Rate 16 02/08/25 15:17 Blood Pressure 167/102 H 02/08/25 15:17 Pulse Oximetry 98 02/08/25 15:17 Medical Decision Making MDM Narrative Medical decision making narrative: Sutures removed in the ED. No issues. Wound healing well. Discussed further wound care. Given return precautions. D/C in stable condition. Medical Records Medical records reviewed: Yes I reviewed the external patient's medical records. Vital Signs Vital Signs: Vital Signs Temperature 98 F 02/08/25 15:17 Pulse Rate 91 02/08/25 15:17 Respiratory Rate 16 02/08/25 15:17 Blood Pressure 167/102 H 02/08/25 15:17 Pulse Oximetry 98 02/08/25 15:17 Temperature 98 F 02/08/25 15:17 Pulse Rate 91 02/08/25 15:17 Respiratory Rate 16 02/08/25 15:17 Blood Pressure 167/102 H 02/08/25 15:17 Pulse Oximetry 98 02/08/25 15:17 Discharge Plan Discharge Clinical Impression: Encounter for removal of sutures Patient Disposition: Home Condition: Stable Instructions: Antibiotic Form, Stitches Removal (ED) Additional Instructions: Recommend Vaseline/antibiotic ointment to wound to help with healing. Allow scabbed region to fall off on its own, do not pick. You may use soaked gauze over this area to loosen. Continue to follow-up with your primary care doctor as needed and Hand surgery. Patient Language: Indonesian Prescriptions: No Action carbidopa-levodopa 25-100 mg tablet 1 tablet PO TID quetiapine 25 mg tablet 25 mg PO BID sennosides [Senokot] 8.6 mg tablet 17.2 mg PO DAILY PRN (Reason: constipation) hydrocodone-acetaminophen 5-325 mg tablet 1 tablet PO Q6H PRN (Reason: pain) Qty: 15 0RF atorvastatin 40 mg tablet 40 mg PO DAILY levetiracetam 500 mg tablet 500 mg PO BID aspirin 81 mg Capsule 81 mg PO DAILY losartan 50 mg tablet 50 mg PO DAILY mirtazapine 15 mg tablet 45 mg PO HS ergocalciferol (vitamin D2) 1,250 mcg (50,000 unit) capsule 1,250 mcg PO WEEKLY calcitriol 0.25 mcg capsule 0.25 mcg PO DAILY tramadol 50 mg tablet 50 mg PO Q4H PRN (Reason: pain) Qty: 20 0RF Follow-up/Referrals: Sally,Alvin Hough [Primary Care Provider] Time of Disposition: 15:28
== END 2025-02-08 15:43 | disposition home or self-care (01) ==
PROVIDERS: Emergency Provider Physician Assistant; PCP Internal Medicine Infectious Disease
DX: S01.112D Laceration without foreign body of left eyelid and periocular area, subsequent encounter (principal); I69.951 Hemiplegia and hemiparesis following unspecified cerebrovascular disease affecting right dominant side; I10 Essential (primary) hypertension; G20.A1 Parkinson's disease without dyskinesia, without mention of fluctuations; G40.909 Epilepsy, unspecified, not intractable, without status epilepticus; G31.85 Corticobasal degeneration; E78.5 Hyperlipidemia, unspecified; N28.9 Disorder of kidney and ureter, unspecified; F41.9 Anxiety disorder, unspecified; F32.A Depression, unspecified; F17.210 Nicotine dependence, cigarettes, uncomplicated; Z96.649 Presence of unspecified artificial hip joint; Z79.82 Long term (current) use of aspirin; Z79.899 Other long term (current) drug therapy; W19.XXXD Unspecified fall, subsequent encounter
CPT/HCPCS: 15853; 99282